=== PATIENT | female | born 1975 | race Caucasian/White ===

== ENCOUNTER → 2022-01-21 | Outpatient (CLI) | payer BC, SELFPAY ==
[2022-01-21 12:02] LABS: EXAGEN MAILED SPECIMEN
[2022-01-21 12:15] LABS: Partial Thromboplast Time 24.4 Seconds (24.1-36.2); Prothrombin Time (Protime)PT. 12.8 SECONDS (11.7-14.9)
[2022-01-21 15:08] LABS: Color, Urine Yellow (Yellow); Glucose, Dipstick Normal (Normal); Ketone-Dipstick 15 mg/dl (Negative); Leukocyte Esterase-Dipstick Negative /ul (Negative); Nitrite-Dipstick Negative (Negative); Occult Blood-Urine 150 /ul (Negative); Protein-Dipstick 15 mg/dl (Negative); Urine Bilirubin Dipstick Negative (Negative); Urine Clarity Clear (Clear); Urine Urobilinogen Normal (Normal)
[2022-01-21 15:23] LABS: Protein, Urine (Random) 12.9 mg/dL (<11.9); Protein:Creat Ratio 54 mg/g CRE (0-200)
[2022-01-27 15:07] LABS: Dilute Prothrombin Time (dPT) 36.4 sec (0.0-47.6); Dilute Russell Viper Venom 35.8 sec (0.0-47.0); Hexagonal Phase Phospholipid 6 sec (0-11); PTT-LA 28.9 sec (0.0-51.9); Thrombin Time 20.3 sec (0.0-23.0); dPT Confirm Ratio 1.06 Ratio (0.00-1.34)
[2022-01-27 16:08] LABS: Interpretation Comment: (.)
== END | disposition home or self-care (01) ==
LOC: MTLAB 10:59
PROVIDERS: PCP Family Medicine; Referring Provider Internal Medicine Rheumatology; Visit Provider Internal Medicine Rheumatology
DX: Z52.4 Kidney donor (principal); M06.4 Inflammatory polyarthropathy; R76.8 Other specified abnormal immunological findings in serum; E03.9 Hypothyroidism, unspecified; I35.1 Nonrheumatic aortic (valve) insufficiency; K11.20 Sialoadenitis, unspecified; Z79.899 Other long term (current) drug therapy
CPT/HCPCS: 36415; 81002; 82570; 84156; 85598; 85610; 85730

== ENCOUNTER → 2022-12-30 | Outpatient (CLI) | payer BC, SELFPAY ==
--- NOTE | 2022-12-30 15:05 | NEURO ---
NCS and/or EMG Patient Report Ordering Doctor: Raghav Ngo DATE OF SERVICE: 12/30/22 Gisela presents for electrodiagnostic testing of the right upper limb. She reports numbness and stiffness in the right hand. Electrodiagnostic findings right median motor nerve demonstrates normal distal latency and amplitude with reduced conduction velocity. Normal right ulnar motor response. Normal right ulnar and median F wave. Normal right median sensory latency at the wrist and palm. Normal ulnar and radial sensory responses. On needle EMG, all muscles tested in the right upper limb showed no evidence of denervation with normal motor unit action potentials. Electrodiagnostic impression: This is an abnormal study in the right upper limb 1. Electrodiagnostic findings suggestive of right-sided median mononeuropathy. This is consistent with a mild right carpal tunnel syndrome. 2. No electrodiagnostic evidence is noted for cervical radiculopathy. Multi Select Codes Neurology Neurology Interp Codes: 85729-95 Musc test done w/n test comp (interp) and 65614-36 Nrv cndj test 7-8 studies (interp)
== END | disposition home or self-care (01) ==
LOC: PSN 13:21
PROVIDERS: PCP Family Medicine; Referring Provider Orthopaedic Surgery Sports Medicine; Visit Provider Orthopaedic Surgery Sports Medicine
DX: G56.01 Carpal tunnel syndrome, right upper limb (principal)
CPT/HCPCS: 95886; 95910

== ENCOUNTER → 2024-12-27 | Outpatient (CLI) | payer BC, SELFPAY ==
--- NOTE | 2024-12-27 09:54 | MRI_ITS ---
PROCEDURE: UPPER EXT JOINT ONLY(ROUTINE) 12/27/2024 REASON FOR EXAM: PAIN TECHNIQUE: UPPER EXT JOINT ONLY(ROUTINE) Multiplanar and multisequence images were obtained without IV contrast administration. COMPARISON: COMPARISON: November 06, 2024 x-ray FINDINGS: Bone Marrow: There is no bony contusion or occult fracture. Rotator cuff: There is no muscular atrophy. There is mild distal supraspinatus tendinopathy without tear. The infraspinatus, subscapularis, and teres minor appear intact. AC joint: The AC joint is aligned. There is no evidence of AC joint separation. There is a type 2 acromion. Labrum: There is a tear of the labrum from the 10 o'clock 2 o'clock position including the biceps tendon anchor. There is a paralabral cyst in the 12 o'clock position measuring 0.5 by 0.25 cm. There is a paralabral cyst at the anterior labral margin measuring 1.0 by 0.6 cm. Biceps: The biceps tendon is present in the biceps tendon groove and appears intact. Effusion: There is no significant joint effusion. There is a trace amount of fluid in the subacromial subdeltoid bursa. MRI/Upper Ext Joint Only(Routine) IMPRESSION: There is mild distal supraspinatus tendinopathy without tear. There is a tear of the labrum from the 10 o'clock 2 o'clock position including the biceps tendon anchor. There is a paralabral cyst in the 12 o'clock position measuring 0.5 by 0.25 cm. There is a paralabral cyst at the anterior labral margin measuring 1.0 by 0.6 c m. There is a trace amount of fluid in the subacromial subdeltoid bursa. Reading Location: [facility]
== END | disposition home or self-care (01) ==
LOC: MRI 09:32
PROVIDERS: PCP Nurse Practitioner Family; Referring Provider Orthopaedic Surgery Sports Medicine; Visit Provider Orthopaedic Surgery Sports Medicine
DX: M25.512 Pain in left shoulder (principal)
CPT/HCPCS: 73221

== ENCOUNTER 2025-01-31 06:02 | Day surgery (SDC) | payer BC, SELFPAY ==
--- NOTE | 2025-01-17 17:15 | PAT.ANE_ITS ---
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 When Was Last Pacemaker Check QUESTION #4 FULL TEXT: You/Your Family Experience fever (hyperthermia) with Anesthesia Last Oral Intake Last Oral intake: Last Oral Intake NPO since Meds taken in AM with sips of water? 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 Female Yes 01/17/25 10:23 HX of Motion Sickness No 01/17/25 10:23 HX of N/V After Surgery No 01/17/25 10:23 Non-Smoker Yes 01/17/25 10:23 Duration of Surgery greater Yes 01/17/25 10:23 than 60 minutes Number of Risk Factors 3 01/17/25 10:23 PONV Score Moderate Risk 01/17/25 10:23 Height & Weight Height & Weight: Anesthesia: Height & Weight Height 5 ft 12/14/24 08:34 Respiratory Assessment Respiratory Assessment - distribution operations supervisor: Respiratory Tract Infection Hx - distribution operations supervisor Hx Respiratory Tract Infection No 01/17/25 10:23 STOP Sleep Apnea STOP Sleep Apnea - distribution operations supervisor: STOP Sleep Apnea - distribution operations supervisor Hx Hypertension No 01/17/25 10:23 Hx Sleep Apnea No 01/17/25 10:23 CPAP BIPAP Do you snore loudly (louder No 01/17/25 10:23 than talking or can be heard Do you often feel tired/ No 01/17/25 10:23 fatigued/ sleepy during daytime? Has anyone observed you stop No 01/17/25 10:23 breathing during sleep? STOP Results Negative 01/17/25 10:23 QUESTION #5 FULL TEXT : Do you snore loudly (louder than talking or can be heard through closed doors)? 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 Specify any problems Hx of Preganancy in last 3 No 01/17/25 10:23 Months Nurse Filling Out Transfusion VCHRISTIN 01/17/25 10:23 & Questions: Date: 01/17/25 01/17/25 10:23 Time: 10:24 01/17/25 10:23 Patient unable to answer at this time (ie. confused, unrespo /Reproduction History /Reproductive History - distribution operations supervisor: /Reproductive Hx- distribution operations supervisor Hx Now No 01/17/25 10:23 Gestational Age (in weeks): EDC: Hx Hx Para Hx Section SAB No 01/17/25 10:23 [facility] Medical History (Updated 01/17/25 @ 10:23 by Olivia Mi) Wears dentures Wears contact lenses Wears glasses History of steroid therapy Thyroid disease Rheumatoid arthritis Arthritis Back pain Gastric reflux Hoarseness Cardiology follow-up encounter Superior labrum [id number] (SLAP) tear of left shoulder Tendinitis of left rotator cuff Left shoulder pain Left wrist pain Left lateral epicondylitis Tendinitis of extensor tendon of left hand Right carpal tunnel syndrome Right hand pain Aortic valve insufficiency Home Medications ?Medication ?Instructions ?Recorded ?Last Taken ?Type levothyroxine 50 mcg capsule 50 mcg PO DAILY 02/07/21 Unknown History folic acid 1 mg tablet 1 mg PO BID 11/19/22 Unknown History methotrexate sodium 2.5 mg tablet 20 mg PO QWEEK 11/19 Unknown History famotidine 40 mg tablet 40 mg PO QHS 10/05/24 Unknow n History lansoprazole 30 mg capsule,delayed 30 mg PO DAILY 09/26 Unknown History release acetaminophen 325 mg tablet 325 mg PO ONCE PRN pain Unknown History (Tylenol) hydroxychloroquine 200 mg tablet 300 mg PO DAILY 01/17 Unknown History prednisone 10 mg tablet 10 mg PO DAILY PRN FLARE UPS 01/17/25 Unknown History tramadol 50 mg tablet 50 mg PO BID PRN PRN pain Unknown History Allergy/AdvReac Type Severity Reaction Status Date / Time Latex, Natural Rubber AdvReac Intermediate rash/itchy Verified 01/17/25 10:11 Family History Brother Heart disease Mother Cancer Arthritis Father Hypertension Surgical History (Updated 01/17/25 @ 10:23 by Olivia Mi) H/O arthroscopy of right knee History of cholecystectomy History of nephrectomy H/O tubal ligation Social History Smoking Status: Never smoker alcohol intake: never Audit: Pertinent Findings Pertinent Findings EKG Perinent findings: August 03, 2024. Normal sinus rhythm. Stress test pertinent findings: ? Date. Treadmill exercise stress test showed no inducible ischemia per cardiology consult. Echo (EF%) pertinent findings: July 2023. Normal EF. Mild to moderate aortic insufficiency. Consult pertinent findings: August 03, 2024. Dr. Dickson. 1. Preoperative clearance for EGD. Patient is able to do greater than 4 METS without symptoms. Risk of cardiovascular event is low in the setting of low risk procedure. No further workup at this time. 2. Aortic insufficiency?mild to moderate, asymptomatic. Recommendation Anesthesia Recommendation Anesthesia recommendation: OPTIMIZED for anesthesia
[2025-01-31] VITALS (11 sets, daily range): BP systolic 95–127; BP diastolic 67–74; PULSE 68–79; RESP 12–18; TEMP 36.3–36.6; O2SAT 80–99; BMI 25.8
--- OUTSIDE RECORDS SUMMARY | 2025-01-31 06:05 | XMS RPT_ITS | CCD ---
Author Organization [facility] ion [facility] Care Team Providers Care Blasting Contract Miner Name Role Phone GeorgesFlora Y Unavailable DeFinis, Harumi Y Unavailable Unavailable DeFinis, Harumi Y Unavailable Unavailable Flora Georges Y Unavailable Dr. Clement Michael Primary Care Provider Dr. Clement Michael Referring Provider MD Raghav Ngo Attending Provider Dr. Favian San Attending Provider MD Raghav Ngo Referring Provider MD Raghav Ngo Other Provider Dr. Edda Kilpatrick Attending Provider UNGERER, MIGUELINA STOCK TRACER Consulting Unavailable NU ALMANZAR MD Admitting Unavailable NU ALMANZAR MD Primary Care Unavailable NU ALMANZAR MD Attending Unavailable PROVIDER, UNKNOWN Consulting Unavailable UNGERER, MIGUELINA STOCK TRACER Consulting Unavailable UNGERER, MIGUELINA STOCK TRACER Primary Care Unavailable UNGERER, MIGUELINA STOCK TRACER Attending Unavailable UNGERER, MIGUELINA STOCK TRACER Admitting Unavailable PROVIDER, UNKNOWN Consulting Unavailable UNGERER, MIGUELINA STOCK TRACER Consulting Unavailable UNGERER, MIGUELINA STOCK TRACER Attending Unavailable UNGERER, MIGUELINA STOCK TRACER Primary Care Unavailable UNGERER, MIGUELINA STOCK TRACER Admitting Unavailable PROVIDER, UNKNOWN Consulting Unavailable GRACIE CLEVELAND MD Attending Unavailab GRACIE Pena MD Admitting Unavailab GRACIE Pena MD Primary Care Unavailab le UNGERER, MIGUELINA STOCK TRACER Consulting Unavailable PROVIDER, UNKNOWN Consulting Unavailable UNGERER, MIGUELINA STOCK TRACER Consulting Unavailable UNGERER, MIGUELINA STOCK TRACER Admitting Unavailable UNGERER, MIGUELINA STOCK TRACER Attending Unavailable UNGERER, MIGUELINA STOCK TRACER Primary Care Unavailable PROVIDER, UNKNOWN Consulting Unavailable UNGERER, MIGUELINA STOCK TRACER Consulting Unavailable NU ALMANZAR MD Admitting Unavailable NU ALMANZAR MD Primary Care Unavailable NU ALMANZAR MD Attending Unavailable PROVIDER, UNKNOWN Consulting Unavailable NU ALMANZAR MD Admitting Unavailable NU ALMANZAR MD Primary Care Unavailable CEMERER, MIGUELINA STOCK TRACER Consulting Unavailable NU ALMANZAR MD Attending Unavailable PROVIDER, UNKNOWN Consulting Unavailable NU ALMANZAR MD Admitting Unavailable CEMERER, MIGUELINA STOCK TRACER Consulting Unavailable NU ALMANZAR MD Primary Care Unavailable NU ALMANZAR MD Attending Unavailable PROVIDER, UNKNOWN Consulting Unavailable UNGERER, MIGUELINA STOCK TRACER Consulting Unavailable CEMERER, MIGUELINA STOCK TRACER Referring Unavailable MILLA VIDALES MD Attending Unavailable MILLA VIDALES MD Admitting Unavailable MILLA VIDALES MD Primary Care Unavailable PROVIDER, UNKNOWN Consulting Unavailable UNGERER, MIGUELINA STOCK TRACER Consulting Unavailable UNGERER, MIGUELINA STOCK TRACER Referring Unavailable RAYMOND RENDON Attending Unavailable RAYMOND RENDON Admitting Unavailable RAYMOND RENDON Primary Care Unavailable PROVIDER, UNKNOWN Consulting Unavailable DESMOND ZAMUDIO CNP Referring Unavailable DESMOND ZAMUDIO CNP Consulting Unavailable DANI SAL Primary Care Unavailable DANI SAL Admitting Unavailable DANI SAL Attending Unavailable PROVIDER, UNKNOWN Consulting Unavailable PROVIDER, UNKNOWN Consulting Unavailable YVON PAN Attending Unavailable YVON PAN Admitting Unavailable YVON PAN Primary Care Unavailable UNGERER, MIGUELINA STOCK TRACER Consulting Unavailable PROVIDER, UNKNOWN Consulting Unavailable GRACIE CLEVELAND MD Attending Unavailab GRACIE Pena MD Admitting Unavailab GRACIE Pena MD Primary Care Unavailab le UNGERER, MIGUELINA STOCK TRACER Consulting Unavailable PROVIDER, UNKNOWN Consulting Unavailable NU ALMANZAR MD Admitting Unavailable ALONDRAR, MIGUELINA STOCK TRACER Consulting Unavailable NU ALMANZAR MD Attending Unavailable NU ALMANZAR MD Primary Care Unavailable PROVIDER, UNKNOWN Consulting Unavailable UNGERER, MIGUELINA STOCK TRACER Consulting Unavailable UNGERER, MIGUELINA STOCK TRACER Admitting Unavailable UNGERER, MIGUELINA STOCK TRACER Attending Unavailable UNGERERMIGUELINA STOCK TRACER Primary Care Unavailable PROVIDER, UNKNOWN Consulting Unavailable Alec TREJO, Dr. Vaughan Primary Care Provider Alec TREJO, Dr. Vaughan Referring Provider Raghav Ngo MD Attending Provider [phone] Mena TREJO, Dr. Ballesteros Attending Provider [phone] Raghav Ngo MD Referring Provider Robb STOCK TRACER-C, Desmond Primary Care Provider Robb STOCK TRACER-C, Desmond Referring Provider Raghav Ngo Attending Unavailable Vaccariello, Clement Referring Unavailable Vaccariello, Clement Primary Care Unavailable Mollison, Raghav Attending Unavailable Mollison, Raghav Referring Unavailable Robb, Desmond Primary Care Unavailable Mollison, Raghav Attending Unavailable Robb, Desmond Primary Care Unavailable Mena, Favian Attending Unavailable Vaccariello, Clement Primary Care Unavailable Jeni, Raghav Attending Unavailable Vaccariello, Clement Referring Unavailable Vaccariello, [facility] Primary Care Unavailable Mollison, Raghav Attending Unavailable Robb, Desmond Referring Unavailable Robb, Desmond Primary Care Unavailable Jeni, Raghav Attending Unavailable Vaccariello, Clement Referring Unavailable Vaccariello, [facility] Primary Care Unavailable Mollison, Raghav Attending Unavailable Vaccariello, Clement Referring Unavailable Vaccariello, [facility] Primary Care Unavailable Mena, Favian Attending Unavailable Vaccariello, [facility] Care Unavailable Allergies Allergy Classification Reported Allergen(s) Allergy Type Date of Onset Reaction(s) Facility (4 sources) natural latex rubber; Translations: [LATEX] allergy to substance 1 Rash on hands [facility] Work Phone: (4 sources) natural latex rubber Propensity to adverse reactions 3 rash/itchy [facility] (1 source) natural latex rubber Drug allergy (disorder) 5 [facility] Repository Medications Current Medications Medication Drug Class(es) Dates Sig (Normalized) Sig (Original) acetaminophen 325 mg oral tablet (3 sources) Start: 11-06-2024 take 1 tablet by mouth once as needed Acetaminophen (Tylenol) 325 mg tablet Active 325 mg PO ONCE as needed November 06, 2024 12:00am famotidine 40 mg oral tablet (3 sources) Histamine-2 Receptor Antagonist Start: 10-05-2024 take 1 tablet by mouth at bedtime Famotidine 40 mg tablet Active 40 mg PO AT BEDTIME October 05, 2024 12:00am folic acid 1 mg oral tablet (4 sources) Start: 11-19-2022 take 1 tablet by mouth every week Folic Acid 1 mg tablet Active 1 mg PO EVERY WEEK November 19, 2022 12:00am lansoprazole 30 mg delayed release oral capsule (3 sources) Proton Pump Inhibitor Start: 10-05-2024 take 1 capsule by mouth twice daily Lansoprazole 30 mg capsule,delayed release(DR/EC) Active 30 mg PO TWICE A DAY October 05, 2024 12:00am methotrexate 2.5 mg oral tablet (4 sources) Folate Analog Metabolic Inhibitor Start: 11-19-2022 take 1 tablet by mouth every week Methotrexate Sodium 2.5 mg tablet Active 2.5 mg PO EVERY WEEK November 19, 2022 12:00am levothyroxine sodium 0.05 mg oral capsule (6 sources) l-Thyroxine Start: 02-07-2021 take 1 capsule by mouth once daily Levothyroxine 50 mcg capsule Active 50 ug PO DAILY February 07, 2021 12:00am Start: 02-02-2017 take 1 tablet by elliott th once daily LEVOTHYROXINE SODIUM 50 MCG TABS One tablet by mouth daily LEVOTHYROXINE SODIUM [id number] Clement Estevez NP Completed/Discontinued Medications Medication Drug Class(es) Dates Sig (Normalized) Sig (Original) hydroxychloroquine sulfate 200 mg oral tablet (4 sources) Antimalarial, Antirheumatic Agent Start: 3 End: 5 take 1 tablet by mouth every week Hydroxychloroquine 200 mg tablet Discontinued 200 mg PO EVERY WEEK November 19, 2022 12:00am October 05, 2024 9:18am naproxen sodium 220 mg oral tablet (8 sources) Nonsteroidal Anti-inflammatory Drug Start: 3 End: 6 ALEVE 220 MG TABS PRN NAPROXEN SODIUM [id number] Favian San MD omeprazole 20 mg delayed release oral capsule (4 sources) Proton Pump Inhibitor Start: 3 End: 5 take 1 capsule by mouth once daily Omeprazole 20 mg capsule,delayed release(DR/EC) Discontinued 20 mg PO DAILY November 19, 2022 12:00am October 05, 2024 9:16am traMADol hydrochloride 50 mg oral tablet (4 sources) Opioid Agonist Start: 1 End: 1 take 1 tablet by mouth every six hours as needed for pain Tramadol 50 mg tablet Discontinued 50 mg PO EVERY 6 HOURS as needed for pain 60 15 0 February 07, 2021 12:00am February 21, 2021 12:00am February 22, 2021 12:01am Problems Active Problems Problem Classification Problem Date Documented Date Episodic/Chronic Chronic kidney disease (3 sources) Chronic kidney disease; Translations: [Chronic kidney disease, stage 3a] Onset: 08-23-2024 Heart valve disorders (12 sources) Nonrheumatic aortic (valve) insufficiency; Translations: [Aortic valve regurgitation] Onset: 05-25-2011 06-03-2016 Chronic Other connective tissue disease (4 sources) Hand pain; Translations: [Pain in right hand] 11-19-2022 Episodic Other connective tissue disease (1 source) Pain in right hand; Translations: [Pain in limb] 11-19-2022 Episodic Other connective tissue disease (3 sources) Lateral epicondylitis of left humerus; Translations: [Lateral epicondylitis, left elbow] 12-20-2023 Episodic Other connective tissue disease (3 sources) Tendinitis of extensor tendon of left hand; Translations: [Other enthesopathies, not elsewhere classified] 10-19-2023 Episodic Other connective tissue disease (4 sources) Tendinitis of left rotator cuff; Translations: [Other shoulder lesions, left shoulder] 01-02-2025 Episodic Other connective tissue disease (1 source) Other shoulder lesions, left shoulder; Translations: [Other shoulder lesions, left shoulder] Onset: 01-02-2025 Episodic Other nervous system disorders (1 source) Carpal tunnel syndrome; Translations: [Carpal tunnel syndrome, right upper limb] 11-19-2022 Chronic Other nervous system disorders (1 source) Carpal tunnel syndrome, right upper limb; Translations: [Carpal tunnel syndrome] 11-19-2022 Chronic Other nervous system disorders (3 sources) Carpal tunnel syndrome of right wrist; Translations: [Carpal tunnel syndrome, right upper limb] 11-19-2022 Chronic Other non-traumatic joint disorders (12 sources) Pain in left shoulder; Translations: [Left shoulder pain] Onset: 01-02-2025 11-06-2024 Episodic Other non-traumatic joint disorders (6 sources) Pain in wrist; Translations: [Pain in left wrist] 10-05-2024 Episodic Other screening for suspected conditions (not mental disorders or infectious disease) (3 sources) Abnormal results of kidney function studies; Translations: [Abnormal results of kidney function studies] Onset: 08-03-2024 Episodic Pulmonary heart disease (4 sources) Pulmonary hypertension; Translations: [Other secondary pulmonary hypertension] Onset: 03-15-2015 03-15-2015 Chronic Residual codes; unclassified (4 sources) History of arthroscopy of knee joint; Translations: [Other specified postprocedural states] 03-01-2018 Episodic Residual codes; unclassified (4 sources) History of nephrectomy; Translations: [Acquired absence of kidney] 03-01-2018 Episodic Rheumatoid arthritis and related disease (4 sources) Inflammatory polyarthropathy; Translations: [Inflammatory polyarthropathy] Onset: 02-14-2024 Chronic Spondylosis; intervertebral disc disorders; other back problems (4 sources) Sacroiliac disorder; Translations: [Sacrococcygeal disorders, not elsewhere classified] 02-07-2021 Episodic Sprains and strains (5 sources) Anterior to posterior tear of superior glenoid labrum of left shoulder; Translations: [Superior glenoid labrum lesion of left shoulder, initial encounter] Onset: 01-02-2025 01-02-2025 Episodic Superficial injury; contusion (6 sources) Contusion of left shoulder, initial encounter; Translations: [Contusion of left forearm, initial encounter] Onset: 09-28-2024 Episodic Thyroid disorders (3 sources) Hypothyroidism, unspecified; Translations: [Hypothyroidism, unspecified] Onset: 04-20-2024 Chronic Past or Other Problems Problem Classification Problem Date Documented Date Episodic/Chronic Cardiac dysrhythmias (4 sources) Palpitations; Translations: [Palpitations] Onset: 05-25-2011 05-25-2011 Episodic Immunizations and screening for infectious disease (1 source) Other specified abnormal immunological findings in serum; Translations: [Other specified abnormal immunological findings in serum] Onset: 07-07-2024 Episodic Other aftercare (4 sources) Other manager terminal (current) drug therapy; Translations: [Other shelter (current) drug therapy] Onset: 02-14-2024 Episodic Other circulatory disease (10 sources) Abnormal result of cardiovascular function study, unspecified; Translations: [Carotid bruit] Onset: 05-25-2011 Resolved: 03-15-2015 03-15-2015 Episodic Other circulatory disease (2 sources) Carotid bruit; Translations: [Other specified symptoms and signs involving the circulatory and respiratory systems] Onset: 05-25-2011 05-25-2011 Episodic Other lower respiratory disease (4 sources) Dyspnea; Translations: [Dyspnea, unspecified] Onset: 05-25-2011 05-25-2011 Episodic Other non-traumatic joint disorders (1 source) Pain in left wrist; Translations: [Pain in left wrist] Onset: 10-05-2024 Episodic Residual codes; unclassified (3 sources) Other specified postprocedural states; Translations: [Other specified postprocedural states] Onset: 05-19-2024 Episodic Results Test Name Value Interpretation Reference Range Facility MR/PAT.ANEon 01-17-2025 MR/PAT.[facility] Medical Records Department [address] [place] [address] PAT - Anesthesia 01/17/25 1715 MR#: [id number] Acct: [id number] Name: ANANTH [place] Rep #: [id number] : 1975 49 From: Rad Raygoza MD PCP: RICCO Epperson Status:PRE [facility] Y Race: C Location: [facility] Pre-Assessment Diagnosis/Proposed Procedure Planned Operative Procedure(s): (L) Left shoulder Arthroscopy, subacromial decompression, biceps tenodesis Anesthesia History Anesthesia History - cold roll inspector: Anesthesia History - cold roll inspector Hx Hospitalization No 01/17/25 10:23 Any Problems With Anesthesia No 01/17/25 10:23 Cholinesterase deficiency No 01/17/25 10:23 You/Your Family Experience No 01/17/25 10:23 fever (hyperthermia) with Relationship Recent Exposure to Contagious Disease Does patient have nerve No 01/17/25 10:23 stimulator Patient instructed to have device shut off --Does patient have Pacemaker or ICD? When Was Last Pacemaker Check QUESTION #4 FULL TEXT: You/Your Family Experience fever (hyperthermia) with Anesthesia Last Oral Intake Last Oral intake: Last Oral Intake NPO since Meds taken in AM with sips of water? Meds patient instructed to take am of surgery PONV PONV - cold roll inspector: PONV - cold roll inspector Female Yes 01/17/25 10:23 HX of Motion Sickness No 01/17/25 10:23 HX of N/V After Surgery No 01/17/25 10:23 Non-Smoker Yes 01/17/25 10:23 Duration of Surgery greater Yes 01/17/25 10:23 than 60 minutes Number of Risk Factors 3 01/17/25 10:23 PONV Score Moderate Risk 01/17/25 10:23 Height Weight Height Weight: Anesthesia: Height Weight Height 5 ft 12/14/24 08:34 Respiratory Assessment Respiratory Assessment - cold roll inspector: Respiratory Tract Infection Hx - cold roll inspector Hx Respiratory Tract Infection No 01/17/25 10:23 STOP Sleep Apnea STOP Sleep Apnea - cold roll inspector: STOP Sleep Apnea - cold roll inspector Hx Hypertension No 01/17/25 10:23 Hx Sleep Apnea No 01/17/25 10:23 CPAP BIPAP Do you snore loudly (louder No 01/17/25 10:23 than talking or can be heard Do you often feel tired/ No 01/17/25 10:23 fatigued/ sleepy during daytime? Has anyone observed you stop No 01/17/25 10:23 breathing during sleep? STOP Results Negative 01/17/25 10:23 QUESTION #5 FULL TEXT : Do you snore loudly (louder than talking or can be heard through closed doors)? Tobacco Use History Tobacco Use History - cold roll inspector: Tobacco Use History - cold roll inspector Tobacco Use Smoking Status Never smoker 01/17/25 10:23 Hx Tobacco Use No 01/17/25 10:23 Years Smoking Packs Smoked per Day Smoking Cessation Date was within the last 15 years Hx Smoking Cessation Date Hx Smoking Cessation Counseling Hematologic Medial History Hematologic Hx - cold roll inspector: Hematologic Medical Hx - hematology technician Hx of Blood Transfusion No 01/17/25 10:23 Hx of Transfusion in last 3 No 01/17/25 10:23 Months Date of Last Transfusion (if within last 3 months) Ever experience any problems No 01/17/25 10:23 with transfusion(s)? Specify any problems Hx of Preganancy in last 3 No 01/17/25 10:23 Months Nurse Filling Out Transfusion VCHRISTIN 01/17/25 10:23 Questions: Date: 01/17/25 01/17/25 10:23 Time: 10:24 01/17/25 10:23 Patient unable to answer at this time (ie. confused, unrespo /Reproducti on History /Reproducti ve History - cold roll inspector: /Reproducti ve Hx- cold roll inspector Hx Now No 01/17/25 10:23 Gestational Age (in weeks): EDC: Hx Hx Para Hx Section SAB No 01/17/25 10:23 [facility] Medical History (Updated 01/17/25 @ 10:23 by Olivia Mi) Wears dentures Wears contact lenses Wears glasses History of steroid therapy Thyroid disease Rheumatoid arthritis Arthritis Back pain Gastric reflux Hoarseness Cardiology follow-up encounter Superior labrum mecemhdp-xi-mxcfkwka r (SLAP) tear of left shoulder Tendinitis of left rotator cuff Left shoulder pain Left wrist pain Left lateral epicondylitis Tendinitis of extensor tendon of left hand Right carpal tunnel syndrome Right hand pain Aortic valve insufficiency Home Medications ???Medication ???Instructions ???Recorded ???Last Taken ???Type levothyroxine 50 mcg capsule 50 mcg PO DAILY 02/07/21 Unknown H istory folic acid 1 mg tablet 1 mg PO BID 11/19/22 Unknown Histo ry methotrexate sodium 2.5 mg tablet 20 mg PO QWEEK 11/19/22 Unknown H istory famotidine 40 mg tablet 40 mg PO QHS 10/05/24 Unknown Hist ory lansoprazol (more content not included)... Normal [facility] Orthopedic Visit Reporton Orthopedic Visit Report [facility] [address] [place] [address] [address] [place] [address] OFFICE VISIT Date of Service: 01/02/25 MR#: [id number] Acct: [id number] Name: ANANTH [place] Rep #: [id number] : 1975 Provider: Dr. Raghav puente MD Age/Sex: 49/F Location: [facility] Status: Signed Intake Vital Signs 12/14/24 08:34 Height 5 ft Weight: 130 lb BMI 25.4 Intake Visit Reasons: LEFT SHOULDER Chief Complaint: MRI review Allergies Latex, Natural Rubber Adverse Reaction (Intermediate, Verified 01/02/25 08:14) rash/itchy Medications ???Medication ???Instructions ???Recorded ???Confirmed ???Type levothyroxine 50 mcg capsule 50 mcg PO DAILY 02/07/21 01/02/25 History folic acid 1 mg tablet 1 mg PO QWEEK 11/19/22 01/02/25 Hi story methotrexate sodium 2.5 mg tablet 2.5 mg PO QWEEK 11/19/22 01/02/25 History famotidine 40 mg tablet 40 mg PO QHS 10/05/24 01/02/25 His tory lansoprazole 30 mg capsule,delayed 30 mg PO BID 10/05/24 01/02/25 H istory release acetaminophen 325 mg tablet 325 mg PO ONCE PRN 11/06/24 History (Tylenol) PFSH Medical History Superior labrum ufglsnkw-uo-bapteudb r (SLAP) tear of left shoulder Tendinitis of left rotator cuff Left shoulder pain Left wrist pain Left lateral epicondylitis Tendinitis of extensor tendon of left hand Right carpal tunnel syndrome Right hand pain Aortic valve insufficiency Surgical History H/O arthroscopy of right knee History of cholecystectomy History of nephrectomy H/O tubal ligation Family History Brother Heart disease Mother Cancer Arthritis Father Hypertension Social History Smoking Status: Never smoker alcohol intake: never HPI LEFT SHOULDER Details: This documentation accurately reflects the service provided and the decisions made by me, Dr. Raghav Ngo MD 01/02/25 0802. Part of today???s visit was documented by [ ], acting as scribe. ANANTH [place] is a 49 year old F here today for follow-up left shoulder MRI. Did have temporary relief with the injection. Not interested in PT. Works many hours in [place] doing lifting. Supplemental Info [facility] Imaging Services [address] [place] [address] Upper Ext Joint Only(Routine) MR#: [id number] Acct: [id number] Name: ANANTH [place] Rep #: [id number] : 1975 F 49 From: Julian Cortes MD PCP: Desmond Zamudio, STOCK TRACER-C Status: REG CLI Study: Upper Ext Joint Only(Routine) Date of Exam: 12/27/24 Exam# [id number] Ordering Dr: Raghav Ngo MD PROCEDURE: UPPER EXT JOINT ONLY(ROUTINE) 12/27/2024 REASON FOR EXAM: PAIN TECHNIQUE: UPPER EXT JOINT ONLY(ROUTINE) Multiplanar and multisequence images were obtained without IV contrast administration. COMPARISON: COMPARISON: November 06, 2024 x-ray FINDINGS: Bone Marrow: There is no bony contusion or occult fracture. Rotator cuff: There is no muscular atrophy. There is mild distal supraspinatus tendinopathy without tear. The infraspinatus, subscapularis, and teres minor appear intact. AC joint: The AC joint is aligned. There is no evidence of AC joint separation. There is a type 2 acromion. Labrum: There is a tear of the labrum from the 10 o'clock 2 o'clock position including the biceps tendon anchor. There is a paralabral cyst in the 12 o'clock position measuring 0.5 by 0.25 cm. There is a paralabral cyst at the anterior labral margin measuring 1.0 by 0.6 cm. Biceps: The biceps tendon is present in the biceps tendon groove and appears intact. Effusion: There is no significant joint effusion. There is a trace amount of fluid in the subacromial subdeltoid bursa. MRI/Upper Ext Joint Only(Routine) IMPRESSION: There is mild distal supraspinatus tendinopathy without tear. There is a tear of the labrum from the 10 o'clock 2 o'clock position including the biceps tendon anchor. There is a paralabral cyst in the 12 o'clock position measuring 0.5 by 0.25 cm. There is a paralabral cyst at the anterior labral margin measuring 1.0 by 0.6 cm. There is a trace amount of fluid in the subacromial subdeltoid bursa. Reading Location: [facility] independently reviewed the imaging. Concur with radiologist report. Coding Level of Care Code Off vis,est,level 4 Diagnoses Left shoulder pain M25.512 Tendinitis of left rot (more content not included)... Normal [facility] Magnetic resonance imaging r eportOrdered By: Julian Cortes on 12-27-2024 Study report [facility] Imaging Services [address] [place] [address] Upper Ext Joint Only(Routine) MR#: [id number] Acct: [id number] Name: ANANTH [place] Rep #: [id number] : 1975 F 49 From: Angy Cortes MD PCP: RICCO Epperson Status: REG C Study:Upper Ext Joint Only(Routine) Date of Exam: 12/27/24 Exam# [id number] Ordering Dr: Raghav Ngo MD PROCEDURE: UPPER EXT JOINT ONLY(ROUTINE) 12/27/2024 REASON FOR EXAM: PAIN TECHNIQUE: UPPER EXT JOINT ONLY(ROUTINE) Multiplanar and multisequence images were obtained without IV contrast administration. COMPARISON: COMPARISON: November 06, 2024 x-ray FINDINGS: Bone Marrow: There is no bony contusion or occult fracture. Rotator cuff: There is no muscular atrophy. There is mild distal supraspinatus tendinopathy without tear. The infraspinatus, subscapularis, and teres minor appear intact. AC joint: The AC joint is aligned. There is no evidence of AC joint separation. There is a type 2 acromion. Labrum: There is a tear of the labrum from the 10 o'clock 2 o'clock position including the biceps tendon anchor. There is a paralabral cyst in the 12 o'clock position measuring 0.5 by 0.25 cm. There is aparalabral cyst at the anterior labral margin measuring 1.0 by 0.6 cm. Biceps: The biceps tendon is present in the biceps tendon groove and appears intact. Effusion: There is no significant joint effusion. There is a trace amount of fluid in the subacromial subdeltoid bursa. MRI/Upper Ext Joint Only(Routine) IMPRESSION: There is mild distal supraspinatus tendinopathy without tear. There is a tear of the labrum from the 10 o'clock 2 o'clock position including the biceps tendon anchor. There is a paralabral cyst in the 12 o'clock position measuring 0.5 by 0.25 cm. There is a paralabral cyst at the anterior labral margin measuring 1.0 by 0.6 cm. There is a trace amount of fluid in the subacromial subdeltoid bursa. Reading Location: [facility] CC: SHAMIKA-C Desmond Zamudio; Dr. Raghav Ngo MD ~ Visualizer: Signed [facility] Upper Ext Joint Only(Routine )on 12-27-2024 Upper Ext Joint Only(Routine) [facility] Imaging Services [address] [place] [id number] Upper Ext Joint Only(Routine) MR#: [id number] Acct: [id number] Name: ANANTH DAVENPORT Rep #: [id number] : 1975 F 49 From: Julian Cortes MD PCP: RICCO Epperson Status: REG CLI Study: Upper Ext Joint Only(Routine) Date of Exam: 0 12/27/24 Exam# [id number] Ordering Dr: Raghav Ngo MD PROCEDURE: UPPER EXT JOINT ONLY(ROUTINE) 12/27/2024 REASON FOR EXAM: PAIN TECHNIQUE: UPPER EXT JOINT ONLY(ROUTINE) Multiplanar and multisequence images were obtained without IV contrast administration. COMPARISON: COMPARISON: November 06, 2024 x-ray FINDINGS: Bone Marrow: There is no bony contusion or occult fracture. Rotator cuff: There is no muscular atrophy. There is mild distal supraspinatus tendinopathy without tear. The infraspinatus, subscapularis, and teres minor appear intact. AC joint: The AC joint is aligned. There is no evidence of AC joint separation. There is a type 2 acromion. Labrum: There is a tear of the labrum from the 10 o'clock 2 o'clock position including the biceps tendon anchor. There is a paralabral cyst in the 12 o'clock position measuring 0.5 by 0.25 cm. There is a paralabral cyst at the anterior labral margin measuring 1.0 by 0.6 cm. Biceps: The biceps tendon is present in the biceps tendon groove and appears intact. Effusion: There is no significant joint effusion. There is a trace amount of fluid in the subacromial subdeltoid bursa. MRI/Upper Ext Joint Only(Routine) IMPRESSION: There is mild distal supraspinatus tendinopathy without tear. There is a tear of the labrum from the 10 o'clock 2 o'clock position including the biceps tendon anchor. There is a paralabral cyst in the 12 o'clock position measuring 0.5 by 0.25 cm. There is a paralabral cyst at the anterior labral margin measuring 1.0 by 0.6 cm. There is a trace amount of fluid in the subacromial subdeltoid bursa. Reading Location: [facility] CC: STOCK TRACER-C Desmond Zamudio; Dr. Raghav Ngo MD Visualizer: Signed Normal [facility] Orthopedic Visit Reporton Orthopedic Visit Report [facility] [address] [place] [address] OFFICE VISIT Date of Service: 12/14/24 MR#: [id number] Acct: [id number] Name: ANANTH DAVENPORT Rep #: [id number] : 1975 Provider: Dr. Raghav puente MD Age/Sex: 49/F Location: [facility] Status: Signed Intake Vital Signs 12/20/23 08:32 12/14/24 08:34 Height 5 ft 5 ft Weight: 130 lb BMI 25.4 Intake Visit Reasons: LEFT SHOULDER Chief Complaint: Left shoulder Accompanied by: Self Is patient in pain?: Yes Pain scale (1-10): 7 Allergies Latex, Natural Rubber Adverse Reaction (Intermediate, Verified 12/14/24 08:37) rash/itchy Medications ???Medication ???Instructions ???Recorded ???Confirmed ???Type levothyroxine 50 mcg capsule 50 mcg PO DAILY 02/07/21 12/14/24 History folic acid 1 mg tablet 1 mg PO QWEEK 11/19/22 12/14/24 Hi story methotrexate sodium 2.5 mg tablet 2.5 mg PO QWEEK 11/19/22 12/14/24 History famotidine 40 mg tablet 40 mg PO QHS 10/05/24 12/14/24 His tory lansoprazole 30 mg capsule,delayed 30 mg PO BID 10/05/24 12/14/24 H istory release acetaminophen 325 mg tablet 325 mg PO ONCE PRN 11/06/24 History (Tylenol) Have you fallen in the past year?: Yes PFSH Medical History Left shoulder pain Left wrist pain Left lateral epicondylitis Tendinitis of extensor tendon of left hand Right carpal tunnel syndrome Right hand pain Aortic valve insufficiency Surgical History H/O arthroscopy of right knee History of cholecystectomy History of nephrectomy H/O tubal ligation Family History Brother Heart disease Mother Cancer Arthritis Father Hypertension Social History Smoking Status: Never smoker alcohol intake: never HPI LEFT SHOULDER Details: This documentation accurately reflects the service provided and the decisions made by me, Dr. Raghav Ngo MD 12/14/24 0831. Part of today???s visit was documented by [ ], acting as scribe. ANANTH DAVENPORT is a 49 year old F here today for follow-up for left shoulder pain. The patient had a cortisone injection about a month ago with only temporary relief. The pain is still mostly on the lateral aspect of the shoulder and worse with lifting. The patient still has to do some physically demanding tasks at work. Patient took some tramadol further back the other day that only helped minimally for the shoulder. Coding Level of Care Code Off vis,est,level 3 Diagnoses Left shoulder pain M25.512 Assessment and Plan Assessment and Plan (1) Left shoulder pain: Status: Acute Plan: ANANTH DAVENPORT is a 49 year old F here today for follow-up for left shoulder pain. The patient had a cortisone injection about a month ago with only temporary relief. The patient has now failed extensive conservative management could have a rotator cuff tear tear in the biceps impingement syndrome tendinosis bursitis or other problems therefore I will go ahead and order an MRI of the left shoulder to assess further and follow the patient up after that they understood no further questions or concerns. Clinical Quality Measures Falls Risk Screening/Assistive Devices Have you fallen in the past year?: Yes Ortho Exam General General: Yes no acute distress Neurologic: Yes alert and Yes oriented x3 Psychologic: Yes reasonable and appropriate Left Shoulder Skin/Wound: Yes CDI, No ecchymosis, No erythema and No swelling Testing: Yes Hawkin's, Yes Neer's, Yes Speed's, Yes TTP Biceps, No TTP AC Joint, Yes AROM-Forward Elevation 0-180, Yes AROM-External Rotation at side 0-60, Yes empty can, No [place], No scapular winging and Yes belly press normal 12/14/24 0906 Date [facility]: Date (if applicable) CC: Normal [facility] Orthopedic Visit Reporton Orthopedic Visit Report [facility] [address] [place] [address] OFFICE VISIT Date of Service: 11/06/24 MR#: [id number] Acct: [id number] Name: ANANTH DAVENPORT Rep #: [id number] : 1975 Provider: Dr. Raghav puente MD Age/Sex: 49/F Location: [facility] Status: Signed with Addenda ADDENDUM by Viry Ortiz on 11/06/24 at 0931 Office Procedure Documentation entered by Viry Ortiz 11/06/24 09:31: Ortho Injections Injections Yes Subacromial Injection Left Is this a patient provided medication?: No Details: Obtained consent for injection. Under sterile conditions, injected the patients left subacromial shoulder with 2.0mL Kenalog and 4.0mL Bupivacaine. The patient tolerated the injection well without any noted complication. Patient should call our office if redness develops, pain worsens or if they have any concerns. Office Meds Kenalog 40 mg/mL suspension for injection Performing Provider: Raghav Ngo MD Performing Location: [facility] Administered by: Raghav Ngo MD on 11/06/24 09:29 Dose Route Admin Location Dispensed Lot Number Expiration Date ND Man ufacturer 80 mg intra-articular Left Subacromial Shoulder 2 mL [id number] 01/26/27 000 [id number] [facility] Date cc: * Signed Intake Vital Signs 12/20/23 08:32 Height 5 ft Intake Visit Reasons: LEFT SHOULDER Is patient in pain?: Yes Pain scale (1-10): 5 Allergies Latex, Natural Rubber Adverse Reaction (Intermediate, Verified 11/06/24 08:45) rash/itchy Medications ???Medication ???Instructions ???Recorded ???Confirmed ???Type levothyroxine 50 mcg capsule 50 mcg PO DAILY 02/07/21 11/06/24 History folic acid 1 mg tablet 1 mg PO QWEEK 11/19/22 11/06/24 Hi story methotrexate sodium 2.5 mg tablet 2.5 mg PO QWEEK 11/19/22 11/06/24 History famotidine 40 mg tablet 40 mg PO QHS 10/05/24 11/06/24 His tory lansoprazole 30 mg capsule,delayed 30 mg PO BID 10/05/24 11/06/24 H istory release acetaminophen 325 mg tablet 325 mg PO ONCE PRN 11/06/24 History (Tylenol) Have you fallen in the past year?: Yes [facility] Medical History (Updated 11/06/24 @ 08:35 by Raghav Ngo MD) Left shoulder pain Left wrist pain Left lateral epicondylitis Tendinitis of extensor tendon of left hand Right carpal tunnel syndrome Right hand pain Aortic valve insufficiency Surgical History H/O arthroscopy of right knee History of cholecystectomy History of nephrectomy H/O tubal ligation Family History Brother Heart disease Mother Cancer Arthritis Father Hypertension Social History Smoking Status: Never smoker alcohol intake: never HPI LEFT SHOULDER Details: This documentation accurately reflects the service provided and the decisions made by me, Dr. Raghav Ngo MD 11/06/24 0806. Part of today???s visit was documented by [ ], acting as scribe. ANANTH DAVENPORT is a 49 year old F here today for left shoulder pain. 1 month history. Worse after a fall. [id number]. Worse at night worse with lifting especially in abduction. Patient feels weak. There is moderate amount of pain mostly posteriorly and laterally. Has not tried any treatment beyond Tylenol so far. The pain is always there. Supplemental Info Left shoulder 4 views x-rays demonstrate nil acute. Normal for age. Coding Level of Care Code Attention Po Diagnoses Left shoulder pain M25.512 Comment [id number] and CPT inject major joint Assessment and Plan Assessment and Plan (1) Left shoulder pain: Status: Acute Plan: 49-year-old female with left shoulder pain. Wide differential that this is likely impingement syndrome could be rotator cuff tear impingement bursitis tendinosis tendinitis irritation of the biceps or other problems. Patient declined physical therapy wants to try cortisone injection they will follow-up if this is no better or worse the next step is an MRI. Pros and cons risks and benefits of left shoulder subacromial steroid injection were discussed. Patient wished to proceed. Risks include but not limited to infection, pain, stiffness, damage to other structures, neurovascular injury, wear further tear of the tendon and other structures such as the skin, bleeding, allergic reaction, acute flare reaction and other risks. Obtained informed consent for injection. Posterior lateral aspect of the shoulder was prepped with chlorhexidine solution allowed to thoroughly dry over 3 minutes. Used Gebauer spray per bottle instructions. Using sterile technique, injected the (more content not included)... Normal [facility] Shoulder min 2 Viewson 11-06 Shoulder min 2 Views [facility] Imaging Services [address] [place], [place] [id number] Shoulder min 2 Views MR#: [id number] Acct: [id number] Name: ANANTH DAVENPORT Rep #: [id number] : 1975 F 49 From: Bhavik [place] PCP: Dr. Clement Michael MD Status: DEP AMB Study: Shoulder min 2 Views Date of Exam: 11/06/24 Exam# [id number] Ordering Dr: Raghav Ngo MD PROCEDURE: SHOULDER MIN 2 VIEWS 11/06/2024 REASON FOR EXAM: PAIN, PT FELL 1 MONTH AGO TECHNIQUE: Four view left shoulder series. COMPARISON: Left shoulder study of 09/28/2024 RAD/Shoulder min 2 Views IMPRESSION: No significant arthritic process or joint narrowing is noted. Satisfactory osseous alignment is seen. No fracture site is seen. Reading Location: [place] [address] CC: Dr. Clement Michael MD; Dr. Raghav Ngo MD Visualizer: Signed Normal [facility] CBC + DIFFon 10-23-2024 Baso # 0.02 x10EE3/UL Normal 0.00 - 0.10 [facility] Comment on above: Performed By: #### 2 30342 ####[facility],[address] [place] [address] Basophils/100 WBC (Bld) 0.4 % Normal 0.0 - 2.0 [facility] Comment on above: Performed By: #### 2 55698 ####[facility],[address] [place] [address] CBC + DIFF Normal [facility] Comment on above: Result Comment: CBC- COMPLETE BLOOD COUNT Performed By: #### 2 08314 ####[facility],[address] [place] [address] EO # 0.17 x10EE3/UL Normal 0.00 - 0.50 [facility] Comment on above: Performed By: #### 2 09807 ####[facility],[address] [place], [place] [id number] Eosinophils/100 WBC (Bld) 2.7 % Normal 0.0 - 7.0 [facility] Comment on above: Performed By: #### 2 17498 ####[facility],[address] [place] [address] Erythrocyte distribution width (RBC) [Ratio] 15.7 % High 12.0 - 15.6 [facility] Comment on above: Performed By: #### 2 20793 ####[facility],[address] [place] [address] Hematocrit (Bld) [Volume fraction] 34.0 % Normal 34.0 - 46.0 [facility] Comment on above: Performed By: #### 2 30585 ####[facility],[address] [place] [address] Hemoglobin (Bld) [Mass/Vol] 11.5 g/dL Low 12.0 - 16.0 [facility] Comment on above: Performed By: #### 2 54513 ####[facility],[address] [place] [address] Lymph # 1.79 x10EE3/UL Normal 0.80 - 2.80 [facility] Comment on above: Performed By: #### 2 50169 ####[facility],[address] [place], [place] [address] Lymphocytes/100 WBC (Bld) 28.0 % Normal 20.0 - 45.0 [facility] Comment on above: Performed By: #### 2 05151 ####[facility],[address] [place] [address] MANUAL DIFF N/A Normal [facility] Comment on above: Performed By: #### 2 48429 ####[facility],[address] [place] [address] MCH (RBC) [Entitic mass] 29 pg Normal 27 - 33 [facility] Comment on above: Performed By: #### 2 13244 ####[facility],[address] [place] [address] MCHC 34 X10 3 Normal 32 - 36 [facility] Comment on above: Performed By: #### 2 71381 ####[facility],[address] [place] [address] MCV (RBC) [Entitic vol] 86 fL Normal 80 - 99 J [facility] Comment on above: Performed By: #### 2 29504 ####[place] [address] [place] # 0.54 x10EE3/UL Normal 0.20 - 1.00 [facility] Comment on above: Performed By: #### 2 42357 ####[facility],[address] [place] [address] MONOS % 8.4 % Normal 0.0 - 10.0 [facility] Comment on above: Performed By: #### 2 99724 ####[facility],[address] [place] [address] Morphology Nicho (Bld) [Interp] N/A Normal [facility] Comment on above: Performed By: #### 2 34185 ####[place] [address] Neut # 3.87 x10EE3/UL Normal 1.50 - 7.10 [facility] Comment on above: Performed By: #### 2 43380 ####[place] [address] Neutrophils/100 WBC (Bld) 60.5 % Normal 46.0 - 76.0 [facility] Comment on above: Performed By: #### 2 14843 ####[place] [address] PLATELET 270 x10EE3/UL Normal 150 - 450 [facility] Comment on above: Performed By: #### 2 83811 ####[facility],[address] [place] [address] Platelet mean volume (Bld) [Entitic vol] 8.4 fL Normal 6.6 - 10.5 [facility] Comment on above: Result Comment: AUTO MATED DIFFERENTIAL Performed By: #### 2 39773 ####[facility],[address] [place] [address] 30785 RBC 3.95 x 10EE6/UL Low 4.10 - 5.30 [facility] Comment on above: Performed By: #### 2 34762 ####[facility],[address] [place] [address]647 WBC 6.4 x 10EE3/UL Normal 4.5 - 10.8 [facility] Comment on above: Performed By: #### 2 07312 ####[facility],[address] [place] [address]1357 CMP with eGFRon 10-23-2024 AGE 49 years Normal [facility] Comment on above: Performed By: #### 2 60984 #### [facility],[address] [place] [address] 24416 Albumin [Mass/Vol] 3.5 g/dL Normal 3.4 - 5.0 [facility] Comment on above: Performed By: #### 2 96457 #### [facility],[address] [place] [address] 69491 Albumin/Globulin [Mass ratio] 1.1 {ratio} Normal 0.9 - 1.6 [facility] Comment on above: Performed By: #### 2 97388 #### [facility],[address] [place] [address] 22812 ALK PHOS 58 U/L Normal 46 - 116 [facility] Comment on above: Performed By: #### 2 90901 #### [facility],[address] [place] [address] 51005 ALT [Catalytic activity/Vol] 27 U/L Normal 16 - 63 [facility] Comment on above: Performed By: #### 2 94056 #### [facility],[address] [place], [place] [address] Anion gap [Moles/Vol] 10 mmol/L Normal 10 - 20 [facility] Comment on above: Performed By: #### 2 56672 #### [facility],[address] [place], [place] [address] AST [Catalytic activity/Vol] 20 U/L Normal 13 - 39 [facility] Comment on above: Performed By: #### 2 81933 #### [facility],[address] [place], [place] [address] B/C RATIO 13 ratio Normal 0 - 30 [facility] Comment on above: Performed By: #### 2 09231 #### [facility],[address] [place] [address] 88676 Bilirubin [Mass/Vol] 0.7 mg/dL Normal 0.2 - 1.0 [facility] Comment on above: Performed By: #### 2 43157 #### [facility],[address] [place] [address] 02467 Calcium [Mass/Vol] 8.5 mg/dL Normal 8.5 - 10.1 [facility] Comment on above: Performed By: #### 2 57547 #### [facility],[address] [place] [address] 45514 Chloride [Moles/Vol] 106 mmol/L Normal 98 - 107 [facility] Comment on above: Performed By: #### 2 32630 #### [facility],[address] [place] [address] 18635 CMP with eGFR Normal [facility] Comment on above: Result Comment: COMP REHENSIVE METABOLIC PANEL Performed By: #### 2 21969 #### [facility],[address] [place] [address] 67248 CO2 [Moles/Vol] 29.4 mmol/L Normal 21.0 - 32.0 [facility] Comment on above: Performed By: #### 2 71984 #### [facility],[address] [place] [address] 16970 Creatinine [Mass/Vol] 1.08 mg/dL High 0.55 - 1.02 [facility] Comment on above: Performed By: #### 2 63812 #### [facility],[address] [place] [address] 97215 eGFR 54 ML/MINUTE Low 60 - 999 [facility] Comment on above: Performed By: #### 2 37482 #### [facility],[address] [place] [address] 30945 GFR/1.73 sq M.predicted among non-blacks MDRD (S/P/Bld) [Vol rate/Area] mL/min/{1.73_m2} Normal 60 - 999 [facility] Comment on above: Result Comment: ACCO RDING TO THE NATIONAL KIDNEY DISEASE EDUCATION PROGRAM(NKDE), A NORMAL eGFR IS A VALUE GREATER THAN OR EQUAL TO 60 ML/MIN/1.73 SQ METERS. CHRONIC KIDNEY DISEASE: <60mL/MIN/1.73 SQ METERS KIDNEY FAILURE: <15mL/MIN/1.73 SQ METERS THIS TEST SHOULD ONLY BE USED FOR PATIENTS 18 YEARS OF AGE AND OLDER. Performed By: #### 2 16360 #### [facility],[address] [place] [address] 46861 Globulin (S) [Mass/Vol] 3.3 g/dL Normal 1.5 - 3.8 [facility] Comment on above: Performed By: #### 2 54444 #### [facility],[address] [place] [address] 84331 Glucose [Mass/Vol] 79 mg/dL Normal 74 - 106 [facility] Comment on above: Performed By: #### 2 47792 #### [facility],[address] [place] [address] 03155 Potassium [Moles/Vol] 3.8 mmol/L Normal 3.5 - 5.1 [facility] Comment on above: Performed By: #### 2 52543 #### [facility],[address] [place] [address] 16392 Protein [Mass/Vol] 6.8 g/dL Normal 6.4 - 8.2 [facility] Comment on above: Performed By: #### 2 85170 #### [facility],[address] [place] [address] 19247 Sodium [Moles/Vol] 142 mmol/L Normal 136 - 145 [facility] Comment on above: Performed By: #### 2 45079 #### [facility],[address] [place] [address] 54138 Urea nitrogen [Mass/Vol] 14 mg/dL Normal 7 - 18 [facility] Comment on above: Performed By: #### 2 00845 #### [facility],[address] [place] [address] Orthopedic Visit Reporton Orthopedic Visit Report [facility] [address] [place] [address] OFFICE VISIT Date of Service: 10/05/24 MR#: [id number] Acct: [id number] Name: ANANTH DAVENPORT Rep #: [id number] : 1975 Provider: Dr. Raghav puente MD Age/Sex: 49/F Location: [facility] Status: Signed Intake Vital Signs 12/20/23 08:32 Height 5 ft Weight: 129 lb 8 oz BMI 25.2 Intake Visit Reasons: LEFT SHOULDER/HAND Is patient in pain?: Yes Pain scale (1-10): 6 Allergies Latex, Natural Rubber Adverse Reaction (Intermediate, Verified 10/05/24 09:16) rash/itchy Medications ???Medication ???Instructions ???Recorded ???Confirmed ???Type levothyroxine 50 mcg capsule 50 mcg PO DAILY 02/07/21 10/05/24 History folic acid 1 mg tablet 1 mg PO QWEEK 11/19/22 10/05/24 Hi story methotrexate sodium 2.5 mg tablet 2.5 mg PO QWEEK 11/19/22 10/05/24 History famotidine 40 mg tablet 40 mg PO QHS 10/05/24 10/05/24 His tory lansoprazole 30 mg capsule,delayed 30 mg PO BID 10/05/24 10/05/24 H istory release [facility] Medical History (Updated 10/05/24 @ 09:29 by Raghav gNo MD) Left wrist pain Left lateral epicondylitis Tendinitis of extensor tendon of left hand Right carpal tunnel syndrome Right hand pain Aortic valve insufficiency Surgical History H/O arthroscopy of right knee History of cholecystectomy History of nephrectomy H/O tubal ligation Family History Brother Heart disease Mother Cancer Arthritis Father Hypertension Social History Smoking Status: Never smoker alcohol intake: never HPI LEFT SHOULDER/HAND Details: This documentation accurately reflects the service provided and the decisions made by me, Dr. Raghav Ngo MD 10/05/24 9000. Part of today???s visit was documented by [ ], acting as scribe. ANANTH DAVENPORT is a 49 year old F here today for L shoulder and L hand injury. Seen outside clinic. Patient had a fall about 8 days ago. This is at work. 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 This has been determined according to the patient to be not Worker's Compensation. Patient mostly has pain in the dorsum aspect of the wrist is wearing a wrist brace that seems to help when the patient does not wear the brace having some numbness into the index and middle finger somewhat going up into the forearm. Some mild shoulder and elbow pain but that is settling down the patient has full elevation of the shoulder and full range of motion of the elbow most of the pain is in the wrist. Brought imaging from [place]. Supplemental Info X-ray reports of the forearm left side from 09/28/2024 as well as left shoulder 2 views left wrist 3 views all show no acute osseous abnormality. I independently reviewed the imaging. Concur with radiologist report. Repeat x-rays 3 views left wrist obtained demonstrate nil acute. Coding Level of Care Code Off vis,est,level 3 Diagnoses Left wrist pain M25.532 Assessment and Plan Assessment and Plan (1) Left wrist pain: Status: Acute Plan: 41-year-old female left wrist pain after a fall. Likely has a contusion to the median nerve as well. I see no signs of a fracture there on either the original or other repeat x-rays. That being said could still have sustained a soft tissue injury or even a radiographically occult fracture. I recommend using the brace as needed for the next 2-3 weeks as tolerated gentle range of motion of the brace a few times a day and follow-up in 6 weeks time if this is no better or worse. Orders: Orders Wrist min 3 Views Today M25.532 - Pain in left wrist Ortho Exam General General: Yes no acute distress Neurologic: Yes alert and Yes oriented x3 Psychologic: Yes reasonable and appropriate Right Wrist/Hand Skin/Wound: Yes Swelling (mild) and No Ecchymosis Left Wrist/Hand Skin/Wound: Yes CDI, Yes Swelling (mild), No Ecchymosis, Yes nail intact, Yes capillary refill normal and No erythema Left Wrist: Yes ROM-Extension 0-60, Yes ROM-Flexion 0-80, Yes ROM-Pronation 0-80 and Yes ROM- Supination 0-90; No Thenar Atrophy and No Hypothenar Atrophy Motor: EPL: 4, FDP-2: 4, 1st Dorsal Interosseous: 4 and APB: 4 Sensation: Radial: I, Ulnar: I and Median: I WRIST: Strong radial pulse forearm is soft. There is mild pain at the distal radius Left Elbow Skin/Wound: Yes CDI, No eccymosis, No erythema and No Swelling ROM: Yes Flexion 0-140, Supination 0-90 and Pronation 0-80 Motor: Elbow Extension: 4 and Elbow Flexion: 4 Left Shoulder Testing: Yes AROM-Forward Elevation 0-180 and Yes AROM-External Rotation at side 0-60 10/05/24 0945 Date __ (more content not included)... Normal [facility] Wrist min 3 Viewson 10-06-19 Wrist min 3 Views [facility] [address] [place] [address] Wrist min 3 Views MR#: [id number] Acct: [id number] Name: ANANTH DAVENPORT Rep #: [id number] : 1975 F 49 From: Sohail Pearce MD PCP: Dr. Clement Michael MD Status: DEP AMB Study: Wrist min 3 Views Date of Exam: 10/05/24 Exam# [id number] Ordering Dr: Raghav Ngo MD EXAM: XR Left Wrist Complete, 3 or More Views CLINICAL INDICATION: PAIN AFTER A FALL TECHNIQUE: Frontal, lateral and oblique views of the left wrist. COMPARISON: No relevant prior studies available. FINDINGS: BONES/JOINTS: See below. SOFT TISSUES: Soft tissue swelling without acute fracture. No radiopaque foreign body. RAD/Wrist min 3 Views IMPRESSION: 1. Soft tissue swelling without acute fracture. 2. If symptoms persist, further evaluation with CT is recommended. Reading [facility] CC: Dr. Clement Michael MD; Dr. Raghav Ngo MD Visualizer: Signed Normal [facility] ED MED ADMINISTRATION DETAIL on 09-28-2024 ED MED ADMINISTRATION DETAIL C2 Tactical Analysis Technician Medication Administration Record [address] [address] [id number] 09/28/2024 Patient: ANANTH DAVENPORT Sex: Female : 1975 Age: 49y MEASUREMENTS: Wt: 59.0 kg, Ht/Yfn: 60.0 in, BMI: 25.39 ALLERGIES: No known drug allergies Medication Ordered Medication Administration Date/Time Acetaminophen 10:28 09/28 Acetaminophen (Tylenol) PO 975 mg given. Allergies Given (Tylenol) PO 975 verified and confirmed 5 rights. Information reviewed. Verbalizes 10:28 09/28/2024 mg (NOW x1) understanding. - 10:28 Bertha Tompkins R.N. Scanned 1 of 1 Normal [facility] ED NURSES CLINICAL NOTEon ED NURSES CLINICAL NOTE Nurse Narrative Nurse Clinical Narrative [facility] [address] [place] [address] [id number] 09/28/2024 09:26:00 Patient: ANANTH DAVENPORT Sex: Female : 1975 Age: 49y Disposition: Discharge to Home Disposition Decision Time: 10:53 09/28/2024 Departure Time: 11:03 09/28/2024 TRIAGE Historian: (patient). Primary physician (Harley Zamudio). Triage time: 09:25 09/28/2024. Acuity: LEVEL 4. Chief Complaint: INJURY TO LEFT WRIST and LEFT SHOULDER. Occurred 10:30 09/27/2024. SEPSIS SCREEN: NEGATIVE. SIRS criteria negative. No possible sources of infection. -- 09:09/28/24 KEEGAN Morfin R.N. 09:27 09/28/24. BP: 146/68 MAP: 94. HR: 77. RR: 16. O2 saturation: 100% Temperature: 98 F. Pain level now 7/10. -- 09:28 09/28/24 KEEGAN Morfin R.N. Measurements: 09:09/28/24 Wt: 59.0 kg, Ht/Yfn: 60.0 in, BMI: 25.39 -- 09:09/28/24 KEEGAN Morfin R.N. Medications: folic acid 1 mg tablet: 2 tablet once a day. -- 09:09/28/24 KEEGAN Morfin R.N. azelastine 137 mcg (0.1 %) nasal spray: 2 spray once a day. -- 09:09/28/24 KEEGAN Morfin R.N. tramadol 50 mg tablet: 1 tablet as directed as needed. -- 09:09/28/24 KEEGAN Morfin R.N. prednisone 10 mg tablet: 1 tablet as directed. (as needed) -- 09:09/28/24 KEEGAN Morfin R.N. 1 of 4 Nurse Narrative methotrexate sodium 2.5 mg tablet: 8 tablet once a week. (on Sundays) -- 09:09/28/24 KEEGAN Morfin R.N. ergocalciferol (vitamin D2) 1,250 mcg (50,000 unit) capsule: 1 capsule once a day. (on Wednesday) -- 09:09/28/24 KEEGAN Morfin R.N. lansoprazole 30 mg capsule,delayed release: 1 capsule twice a day. -- 09:09/28/24 KEEGAN Morfin R.N. hydroxychloroquine 200 mg tablet: 1 1/2 tablet once a day. -- 09:09/28/24 KEEGAN Morfin R.N. famotidine 40 mg tablet: 1 tablet every night at bedtime. -- 09:09/28/24 KEEGAN Morfin R.N. levothyroxine 75 mcg tablet: 1 tablet once a day. -- 09:09/28/24 KEEGAN Morfin R.N. 09:09/28/24. Preferred Pharmacy: ([facility]). -- 09:09/28/24 KEEGAN Morfin R.N. Allergies: no known drug allergies -- 09:09/28/24 KEEGAN Morfin R.N. Home Medications/Allergy Information Source: patient -- 09:09/28/24 KEEGAN Morfin R.N. Problems: aortic regurgitation -- 09:09/28/24 KEEGAN Morfin R.N. ADDITIONAL SURGERIES: Kidney removal -- 09:09/28/24 KEEGAN Morfin R.N. Cholecystectomy -- 09:09/28/24 KEEGAN Morfin R.N. Tubal Ligation -- 09:09/28/24 KEEGAN Morfin R.N. History 09:09/28/24. PAST MEDICAL HX: Other immunizations: up-to-date. Right dominant extremity. SOCIAL HX: Never smoker. No alcohol use or drug use. The patient has not traveled outside the [place] Infectious disease exposure: No infectious disease exposure. 2 of 4 Nurse Narrative ABUSE ASSESSMENT: The patient answered yes to the question(s) Do you feel safe in your home? and no to the question(s) Are you afraid to go home?. Abuse denied. No suspicion of abuse. SELF HARM ASSESSMENT: Self harm assessment was performed. The patient answered no to the question(s) Have you recently felt down, depressed, or hopeless? and Do you have thoughts of harming or killing yourself?. FALL RISK ASSESSMENT: Fall risk assessment completed. Risk factors identified include patient history of fall. -- 09:31 09/28/24 EDT Tawana Morfin R.N. Interventions 09:25 09/28/24. Advanced care plan discussed with patient (Full Code). -- 09:31 09/28/24 DIRKT Tawana Morfin R.N. PHYSICAL ASSESSMENT 09:58 09/28/24. Ambulatory to room. GENERAL / NEURO / PSYCH: Oriented X 4. Alert. Appears in no acute distress. ( PT arrives stating she fell yesterday while at work yesterday around 1030am. Pt state she landed more to the left side and braced her arms out when she hyperextended her wrist. Pt states 7/10 pain and not getting any better from yesterday). The patient has numbness of the left arm and hand. EXTREMITIES: Limited ROM present. Capillary refill is less than 2 seconds in the extremities. Extremity pulses are within normal limits. Left wrist: tenderness and ecchymosis located in the proximal hand and dorsal aspect of the wrist. Limited ROM secondary to pain (diminished flexion and extension). No erythema, swelling, laceration, abrasion or puncture wound. No foreign body or deformity. SKIN: Skin intact. Skin is warm and dry. -- 10:08 09/28/24 KEEGAN Morfin R.N. NURSING PROGRESS NOTES 09:57 09/28/24. Patient transported to radiology by stretcher with orthopedic radiologic technologist. -- 10:32 09/28/24 KEEGAN Morfin R.N. 10:23 09/28/24. SPLINT APPLIED: Short arm OCL splint applied to left forearm, wrist and hand. Distal pulses intact, sensation intact and motor within normal limits. Patient tolerated the procedure well. Splinting applied by E (more content not included)... Normal [facility] ED ORDER SHEET (CPOE ONLY)on 09-28-2024 ED ORDER SHEET (CPOE ONLY) Order Sheet Order Sheet [address] [place] [address] [id number] 09/28/2024 [id number] Sex[facility] Female : 1975 Age: 49y MEASUREMENTS: Wt: 59.0 kg, Ht/Yfn: 60.0 in, BMI: 25.39 ALLERGIES: No known drug allergies MEDICATION/IV/DRIP/F LUID ORDERS Order Description Priority Entered Acknowledged Completed Acetaminophen (Tylenol) 09:45 09/28/2024 10:28 PO975 mg (NOW x1) Dani Sal, 09/28/2024 Felipe Morfin R.N. LAB ORDERS Order Description Priority Entered Acknowledged Collected Completed DIAGNOSTIC STUDY ORDERS Order Description Priority Entered Acknowledged Completed Shoulder L Complete Stat Stat 09:45 09/28/2024 10:04 10:31 Dani Sal, 09/28/2024 09/28/2024 Tawana Danielson R.N. R.N. Order Comments: 09:44 09/28/2024: Status: Not . Dani Sal D.O. Reason for Study: Shoulder Injury Wrist Lt Complete Stat Stat 09:45 09/28/2024 10:04 10:31 Dain Sal, 09/28/2024 09/28/2024 1 of 2 Order Sheet Tawana Danielson R.NTony R.N. Order Comments: 09:45 09/28/2024: Status: Not . Dani Sal D.O. Reason for Study: Trauma/Injury Forearm L 2V Stat Stat 09:45 09/28/2024 10:04 10:31 Dani Sal, 09/28/2024 09/28/2024 Tawana Danielson R.N. R.N. Order Comments: 09:45 09/28/2024: Status: Not . Dani Sal D.O. Reason for Study: Forearm/Elbow/Wrist Pain STAFF ORDERS Order Description Priority Entered Acknowledged Collected Completed Arm Sling 10:40 09/28/2024 10:49 09/28/2024 10:52 09/28/2024 Tawana Marina Shauna Ewing, D.O. R.N. RTonyNTony [Electronically signed by Dani Sal D.O. (09/28/2024 14:02 EDT)] 2 of 2 Normal [facility] ED PHYSICIAN CLINICAL REPORT on 09-28-2024 ED PHYSICIAN CLINICAL REPORT Narrative Physician Clinical Narrative [facility] [address] [place] [address] [id number] 09/28/2024 09:26:00 Patient: ANANTH DAVENPORT Sex: Female : 1975 Age: 49y Disposition: Discharge to Home Disposition Decision Time: 10:53 09/28/2024 Departure Time: 11:03 09/28/2024 Measurements Wt: 59.0 kg, Ht/Yfn: 60.0 in, BMI: 25.39 Initial Vital Sign Measured Time BP MAP HR RR O2Sat ETCO2 Temp Pain GCS RTS 09:27 09/28/2024 146/68 94 77 16 100% 98.0 F 7 Time Seen: 09:33 09/28/2024. Arrived- By private vehicle. Historian- patient. Independent historian- family. HISTORY OF PRESENT ILLNESS Chief Complaint: Injury to the left shoulder and left wrist and left forearm and Chief Complaint- she also complains of pain to her left hip area. she is able to move the hip and walk. She also noticed some ecchymosis on her left wrist area. She tripped and fell around 10:00 a.[address]. yesterday at the place of employment. Denies any neck pain no chest pain or shortness of breath. Says the pain is a 7/10 it is a sharp pain that is worse with movement nothing really makes it better she would try brace which really said that really did not help she is right-hand dominant. The injury happened yesterday. Fell. The patient sustained a direct blow. Occurred at work. Patient is experiencing moderate pain. Patient also notes injury to the left lower extremity (hip) and (thigh). 1 of 7 Narrative REVIEW OF SYSTEMS SKIN: No suspected foreign body or skin laceration. NEUROLOGICAL: No tingling or weakness. MUSCULOSKELETAL: No swelling. Status: Not . PAST HISTORY See nurses notes. aortic regurgitation Surgeries: Cholecystectomy Kidney removal Tubal Ligation Medications: azelastine 137 mcg (0.1 %) nasal spray: 2 spray once a day. ergocalciferol (vitamin D2) 1,250 mcg (50,000 unit) capsule: 1 capsule once a day. (on Wednesday) famotidine 40 mg tablet: 1 tablet every night at bedtime. folic acid 1 mg tablet: 2 tablet once a day. hydroxychloroquine 200 mg tablet: 1 1/2 tablet once a day. lansoprazole 30 mg capsule,delayed release: 1 capsule twice a day. levothyroxine 75 mcg tablet: 1 tablet once a day. methotrexate sodium 2.5 mg tablet: 8 tablet once a week. (on Sundays) prednisone 10 mg tablet: 1 tablet as directed. (as needed) tramadol 50 mg tablet: 1 tablet as directed as needed. Allergies: no known drug allergies Home Medications/Allergy Information Source: patient - Tawana Morfin R.N., 09/28/2024 09:29 EDT SOCIAL HISTORY 2 of 7 Narrative Never smoker. No alcohol use. ADDITIONAL NOTES The nursing notes have been reviewed. PHYSICAL EXAM Appearance: Alert. Oriented X3. Appears to be in pain. Head: Head atraumatic. Eyes: Pupils equal, round and reactive to light. Eyes normal inspection. ENT: Ears normal. Nose normal. Neck: Normal inspection. Neck supple. CVS: Normal heart rate. Heart sounds normal. Respiratory: No respiratory distress. Breath sounds normal. Chest nontender. Abdomen: No visible injury. Back: Normal inspection. No tenderness. Skin: Normal skin color. Normal skin turgor. (patient has some ecchymosis to the left wrist more on the middle aspect of the wrist. She has no specific left scaphoid tenderness. She had generalized tenderness to her wrist. She is able to move her shoulder. She also has pain on her left hip area. I do not appreciate any bruising. She did have some tenderness but she had good range of motion in her left hip she is able to ambulate.). Extremities: Extremities otherwise negative. Neuro, Vascular and Tendons: Sensation intact. Motor intact. Neuro: Oriented X 3. No motor deficit. LABS, X-RAYS, AND EKG Diagnostic Study Tests: FOREARM LT Final EXAM Date: 09/28/2024 10:11:00 EDT MsgRcvd: 09/28/2024 10:14 EDT [place] [address] Patient: ANANTH DAVENPORT Phone#: : 1975 Age: 49 Gender: F Pt. Type: ER 3 of 7 Narrative Account: [id number] Location: [facility] Ordering: DANI SAL Exam Date: 09/28/2024/9:54 Family Phys: Charge Code: 626551 Physician: Rolette Order #: [id number] Dose#: PROCEDURE: X-RAY FOREARM LT 2 VIEWS COMPARISON: None. INDICATIONS: Injury. FINDINGS: BONES: Normal. No significant arthropathy or acute abnormality. No fracture. SOFT TISSUES: Negative. No visible soft tissue swelling. EFFUSION: None visible. OTHER: Negative. CONCLUSION: 1. No acute osseous abnormality Dictated by: Mary Manuel MD on 09/28/2024 at 10:10 Approved by: Mary Manuel MD on 09/28/2024 at 10:11 SHOULDER COMPLETE LT Final EXAM Date: 09/28/2024 10:09:00 EDT MsgRcvd: 09/28/2024 10:13 EDT [place] [address] (more content not included)... Normal [facility] ED SUPER BILLon 09-28-2024 [place] [address] [id number] 09/28/2024 Patient: ANANTH DAVENPORT Sex: Female : 1975 Age: 49y Item Facility Professional Category Description Code Code Quantity Fee Total Nurse/E/M EMERGENCY 855833 1 $0.00 $0.00 DEPARTMENT VISIT MODERATE SEVERITY (02582-95) Physician/Procedures Splint - Short 118515 1 $0.00 $0.00 Arm (72065-LN) Grand Total $0.00 Providers Dani Sal D.O. Chief Complaint Injury to the left shoulder and left wrist and left forearm and Chief Complaint- she also complains of pain to her left hip area. she is able to move the hip and walk. She also noticed some ecchymosis on her left wrist area. She tripped and fell around 10:00 a.m. yesterday at the place of employment. Denies any neck pain no chest pain or shortness of breath. Says the pain is a 7/10 it is a sharp pain that is worse with movement nothing really makes it better she would try brace which really said that really did not help she is right-hand dominant. 1 of 2 Superbill Principal Diagnosis Multiple contusions to the left shoulder, left forearm, left wrist and left hip.No contusion to the left thumb, left index finger, left middle finger, left ring finger or left little finger. No left fingernail injury. ICD-10 Codes S40.012A: Contusion of left shoulder, initial encounter S50.12xA: Contusion of left forearm, initial encounter S60.212A: Contusion of left wrist, initial encounter S70.02xA: Contusion of left hip, initial encounter 2 of 2 Normal [facility] ED VISIT SUMMARYon ED VISIT SUMMARY Visit Overview Visit Overview [address] [place] [address] [id number] 09/28/2024 Patient: ANANTH DAVENPORT Sex: Female : 1975 Age: 49y 09/28/2024 02:02 PM EDT ED Arrival:09:26 09/28/2024 EDT Status:not Recent Travel:no Language:eng Adv Directive: Isolation Status: Ethnicity:N Fall Risk:risk Infectious Disease Exposure:no Measurements:5' / 152.4 Self-Harm Status:risk Sepsis Screen:negative cm 130.0 lb / 59.0 kg Chief Complaint:INJURY TO LEFT SHOULDER, INJURY TO LEFT WRIST, (10:30 09/27/2024), and (Harley Zamudio) ALLERGIES No Known Drug Allergies HOME MEDICATIONS azelastine 137 mcg (0.1 %) nasal spray: 2 spray once a day. ergocalciferol (vitamin D2) 1,250 mcg (50,000 unit) capsule: 1 capsule once a day. (on Wednesday) famotidine 40 mg tablet: 1 tablet every night at bedtime. folic acid 1 mg tablet: 2 tablet once a day. hydroxychloroquine 200 mg tablet: 1 1/2 tablet once a day. Visit Overview lansoprazole 30 mg capsule,delayed release: 1 capsule twice a day. levothyroxine 75 mcg tablet: 1 tablet once a day. methotrexate sodium 2.5 mg tablet: 8 tablet once a week. (on Sundays) prednisone 10 mg tablet: 1 tablet as directed. (as needed) tramadol 50 mg tablet: 1 tablet as directed as needed. PAST MEDICAL HISTORY / PROBLEMS aortic regurgitation Other immunizations: up-to-date Right dominant extremity See nurses notes PAST SURGICAL HISTORY Cholecystectomy Kidney removal Tubal Ligation SOCIAL HISTORY Smoking status: No Alcohol use: No Drug use: No ED COURSE MEDICATIONS GIVEN IN EMERGENCY DEPARTMENT 10:28 09/28/24 Acetaminophen (Tylenol) PO 975 mg IV SITE INFORMATION INTAKE OUTPUT REASSESMENT (most recent) Visit Overview 09:58 09/28/24. Ambulatory to room. GENERAL / NEURO / PSYCH: Oriented X 4. Alert. Appears in no acute distress. ( PT arrives stating she fell yesterday while at work yesterday around 1030am. Pt state she landed more to the left side and braced her arms out when she hyperextended her wrist. Pt states 7/10 pain and not getting any better from yesterday). The patient has numbness of the left arm and hand. EXTREMITIES: Limited ROM present. Capillary refill is less than 2 seconds in the extremities. Extremity pulses are within normal limits. Left wrist: tenderness and ecchymosis located in the proximal hand and dorsal aspect of the wrist. Limited ROM secondary to pain (diminished flexion and extension). No erythema, swelling, laceration, abrasion or puncture wound. No foreign body or deformity. SKIN: Skin intact. Skin is warm and dry. VITAL SIGNS First Vitals Last Vitals Temp 09:09/28/24 98.0 F Temp 09:09/28/24 98.0 F BP 09:09/28/24 146/68 BP 09:09/28/24 146/68 HR 09:09/28/24 77 HR 09:09/28/24 77 RR 09:09/28/24 16 RR 09:09/28/24 16 O2 Sat 09:09/28/24 100% O2 Sat 09:09/28/24 100% Pain 09:27 09/28/24 7 Pain 09:27 09/28/24 7 ETCO2 09:09/28/24 ETCO2 09:09/28/24 GCS 09:27 09/28/24 GCS 09:09/28/24 RTS 09:09/28/24 RTS 09:09/28/24 PROCEDURES NURSING INTERVENTIONS Splint LABS / STUDIES LABS / STUDIES ORDERED Forearm L 2V Shoulder L Complete Wrist Lt Complete CLINICAL IMPRESSION 3 of 4 Visit Overview MULTIPLE CONTUSIONS TO THE LEFT SHOULDER, LEFT FOREARM, LEFT WRIST AND LEFT HIP.NO CONTUSION TO THE LEFT THUMB, LEFT INDEX FINGER, LEFT MIDDLE FINGER, LEFT RING FINGER OR LEFT LITTLE FINGER. NO LEFT FINGERNAIL INJURY 4 of 4 Normal [facility] ED VITALS FLOW SHEETon 09-28 ED VITALS FLOW SHEET Vitals Vital Sign Flow Sheet [address] [address] [id number] 09/28/2024 Patient: ANANTH DAVENPORT Sex: Female : 1975 Age: 49y Measurements Wt: 59.0 kg, Ht/Yfn: 60.0 in, BMI: 25.39 Measured Time BP MAP HR RR O2Sat ETCO2 Temp Pain GCS RTS 09:09/28/2024 146/68 94 77 16 100% 98.0 F 7 1 of 1 Normal [facility] FOREARM LTon 09-28-2024 FOREARM LT [address] [address] Patient: ANANTH DAVENPORT Phone#: : 1975 Age: 49 Gender: F Pt. Type: ER Account: [id number] Location: 05 Ordering: DANI SAL Exam Date: 09/28/2024/9:54 Family Phys: Charge Code: [id number] Physician: Rolette Order #: [id number] Dose#: PROCEDURE: X-RAY FOREARM LT 2 VIEWS COMPARISON: None. INDICATIONS: Injury. FINDINGS: BONES: Normal. No significant arthropathy or acute abnormality. No fracture. SOFT TISSUES: Negative. No visible soft tissue swelling. EFFUSION: None visible. OTHER: Negative. CONCLUSION: 1. No acute osseous abnormality Dictated by: Mary Manuel MD on 09/28/2024 at 10:10 Approved by: Mary Manuel MD on 09/28/2024 at 10:11 Normal [facility] SHOULDER COMPLETE LTon 09-28 SHOULDER COMPLETE [place] [address] Patient: ANANTH DAVENPORT Phone#: : 1975 Age: 49 Gender: F Pt. Type: ER Account: [id number] Location: 05 Ordering: [facility] Exam Date: 09/28/2024/9:49 Family Phys: Charge Code: [id number] Physician: Rolette Order #: [id number] Dose#: PROCEDURE: X-RAY SHOULDER LT MIN 2 VIEWS COMPARISON: None. INDICATIONS: Injury. FINDINGS: BONES: Normal. No significant arthropathy or acute abnormality. Humeral head is normal in contour. Joint space is maintained. No fracture or dislocation. SOFT TISSUES: Negative. No visible soft tissue swelling. EFFUSION: None visible. OTHER: Negative. CONCLUSION: 1. No acute osseous abnormality Dictated by: Mary Manuel MD on 09/28/2024 at 10:08 Approved by: Mary Manuel MD on 09/28/2024 at 10:09 Normal [facility] WRIST COMPLETE LTon 09-29-19 25 WRIST COMPLETE [place] [address] Patient: ANANTH DAVENPORT Phone#: : 1975 Age: 49 Gender: F Pt. Type: ER Account: [id number] Location: 052 Ordering: [facility] Exam Date: 09/28/2024/9:54 Family Phys: Charge Code: [id number] Physician: Rolette Order #: [id number] Dose#: PROCEDURE: X-RAY WRIST LT COMPLETE MIN 3 VIEWS COMPARISON: [facility], XR, WRIST COMPLETE LT, 10/08/2023, 11:44. INDICATIONS: Injury. FINDINGS: BONES: Normal. No significant arthropathy or acute abnormality. No appreciable fracture or dislocation. SOFT TISSUES: Negative. No visible soft tissue swelling. EFFUSION: None visible. OTHER: Negative. CONCLUSION: 1. No appreciable acute osseous abnormality. Note: An acute wrist fracture may not be initially evident on radiograph. If there is persistent pain in 7-10 days recommend repeat radiograph. Dictated by: Mary Manuel MD on 09/28/2024 at 10:11 Approved by: Mary Manuel MD on 09/28/2024 at 10:12 Normal [facility] URINEon 08-28-2024 Beta HCG ( test) Ql (U) Negative Normal NEGATIVE [facility] Comment on above: Performed By: #### 2 [id number] #### [place] [address] EXTERNAL QC DONE? YES Normal [facility] Comment on above: Result Comment: Very dilute urine specimens, as indicated by a low specific gravity, may not contain inside technical sales representative levels of hCG. If is still suspected, a first morning urine specimen should be collected 48 hours later and tested. Performed By: #### 2 [id number] #### [facility],[address] [place] [address] INTERNAL QC PASS Normal [facility] Comment on above: Performed By: #### [id number] #### [facility],[address] [place], [place] [id number] PROTEIN ELECTROPHORESIS , SE RUM [CCL]on 08-25-2024 PROTEIN ELECTROPHORESIS , SERUM [CCL] Normal [facility] Comment on above: Result Comment: _PRO TEIN ELECTROPHORESIS, SERUM [CCL]_ SEE SEPERATE REPORT Performed By: #### 2 [id number] ####[facility],[address] [place] [address] US KIDNEYon 08-25-2024 KIDNEY [place] [address] Patient: ANANTH DAVENPORT Phone#: : 1975 Age: 49 Gender: F Pt. Type: Out Account: [id number] Location: [facility] Ordering: GRACIE CLEVELAND Exam Date: 08/25/2024/13:23 Family Phys: DESMOND ZAMUDIO Charge Code: [id number] Physician: Rolette Order #: [id number] Dose#: PROCEDURE: KIDNEY ULTRASOUND COMPARISON: [facility], MR, LUMBAR SPINE W/O CONT, 01/02/2021, 13:25. [facility], US, KIDNEY, 01/26/2020, 8:32. INDICATIONS: Chronic kidney disease, Stage III TECHNIQUE: Ultrasound examination was performed of the kidneys and bladder. FINDINGS: RIGHT KIDNEY: The right kidney is 11.2 x 4.3 x 5.5 centimeters. In the upper pole the renal cortex is a 5 millimeter echogenic focus without shadowing. Similar structure is present on previous examination. Prior exam echogenicity measured 3 millimeters in size. LEFT KIDNEY: The left kidney is surgically absent. OTHER: Negative. CONCLUSION: 1. Echogenic focus in the right renal cortex is present. 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 Shadowing is not identified. 2. There is no evidence of hydronephrosis. Dictated by: Kimmie Santoro MD on 08/25/2024 at 14:18 Approved by: Kimmie Santoro MD on 08/25/2024 at 14:32 Normal [facility] DNA ANTIBODY [CCL]on 025 DNA Antibody 7 IU/mL Normal <=200 [facility] Comment on above: Result Comment: Nega tive: <200 IU/mL Equivocal: 201-300 IU/mL Moderate Positive: 301-800 IU/mL Strong Positive: >801 IU/mL Performed By: #### 2 86502 #### [facility],[address] [place] [address]6097 MISC LABon 08-24-2024 [facility] Normal [facility] Comment on above: Result Comment: SEE SEPERATE REPORT Performed By: #### 2 08425 ####[facility],[address] [place] [address] 87792 MYELOPEROXIDASE AUTOANTIBODI ES [CCL]on 08-24-2024 Myeloperoxid AutoAb <0.2 Normal <1.0 [facility] Comment on above: Result Comment: This test is used as an aid in diagnosis of patients with autoimmune vasculitidies. The final interpretation should be done in conjunction with ANCA test results and clinical correlation. [facility] [address] [place] [address] Gianni Terrazas III, M.D. [id number] Performed By: #### 2 77190 #### [facility],[address] [place] [address] 90812 NEUTROPHIL CYTOPLASMIC ANTIB JEFF [CCL]on 08-24-2024 C-ANCA byImmunofluorescence Negative Normal Negative [facility] Comment on above: Performed By: #### 2 11723 ####[facility],[address] [place] [address] 26417 INTERPRETATION (ANCA) Weak P-ANCA patter n on confirmatory indirect immunofluorescence but negative ant Normal [facility] Comment on above: Performed By: #### 2 03008 ####[facility],[address] [place] [address] 11213 Myeloperoxidase Ab <0.2 Normal <1.0 [facility] Comment on above: Performed By: #### 2 86953 ####[facility],[address] [place] [address] 65464 P-ANCA byImmunofluorescence Positive Abnormal Negative [facility] Comment on above: Performed By: #### 2 69129 ####[facility],[address] [place] [address] 67955 Proteinase-3 Ab <0.2 Normal <1.0 [facility] Comment on above: Performed By: #### 2 79454 ####[facility],[address] [place] [address] 86145 STAFF REVIEW (ANCA) Reviewed by Pavel Lincoln, Ph.D D(TAYA) Normal [facility] Comment on above: Result Comment: This test is used as an aid in diagnosis of patients with autoimmune vasculitides. The final interpretation should be done in conjunction with ANCA test results and clinical correlation. [address] [place] [address] Gianni Terrazas III, M.D. [id number] Performed By: #### 2 19913 ####[address] [address] PROTEINASE 3 AUTOANTIBODIES [CCL]on 08-24-2024 Proteinase 3 Ab <0.2 Normal <1.0 [facility] Comment on above: Result Comment: This test is used as an aid in diagnosis of patients with autoimmune vasculitidies. The final interpretation should be done in conjunction with ANCA test results and clinical correlation. [address] [place] [address] Gianni Terrazas III, M.D. [id number] Performed By: #### 2 27880 ####[address] [address] URINE CREATININE AND PROTEIN RATIOon 08-24-2024 URINE CREATININE AND PROTEIN RATIO Normal [facility] Comment on above: Result Comment: SEE SEPERATE REPORT Performed By: #### 2 59173 #### [address] [address] ANTI NEUTRO CYTO ABon 2024 INTERPRETATION (ANCA) Weak P-ANCA patter n on confirmatory indirect immunofluorescence but negative anti-Proteinase III and anti-Myeloperoxidase results on multiplex flow immunoassay. This combination may suggest non-specific reactivity due to other autoimmune diseases, idiopathic pulmonary fibrosis, or P-ANCA vasculitis in remission. Anti nuclear antibody test may be considered. Clinical correlation is required. Normal [facility] Comment on above: Order Comment: Speci men Type: BLOOD SPECIMEN Ordering Facility: [facility] Address: [address] [place] [address] Performed By: #### 6 969-0, ANCAC, 4485-9, 4498-2, DNAAB, ANCA #### [facility] CLIA [id number] [address] [place] [address] [place] Myeloperoxidase Ab Qn (S) <0.2 Normal <1.0 [facility] Comment on above: Order Comment: Speci men Type: BLOOD SPECIMEN Ordering Facility: [facility] Address: [address] [place], [place] [address] Performed By: #### 6 969-0, ANCAC, 4485-9, 4498-2, DNAAB, ANCA #### [facility] CLIA [id number] [address] [place] [address] [place] Neutrophil cytoplasmic Ab.classic IF Ql (S) Negative Normal Negative [facility] Comment on above: Order Comment: Speci men Type: BLOOD SPECIMEN Ordering Facility: [facility] Address: [address] [place], [place] [address] Performed By: #### 6 969-0, ANCAC, 4485-9, 4498-2, DNAAB, ANCA #### [facility] CLIA [id number] [address] [place] [address] [place] Neutrophil cytoplasmic Ab.perinuclear IF Ql (S) Positive Abnormal Negative [facility] Comment on above: Order Comment: Speci men Type: BLOOD SPECIMEN Ordering Facility: [facility] Address: [address] [place], [place] [address] Performed By: #### 6 969-0, ANCAC, 4485-9, 4498-2, DNAAB, ANCA #### [facility] CLIA [id number] [address] [place] [address] [place] Proteinase 3 Ab Qn (S) <0.2 Normal <1.0 [facility] Comment on above: Order Comment: Speci men Type: BLOOD SPECIMEN Ordering Facility: [facility] Address: [address] [place] [address], [place] [address] Performed By: #### 6 969-0, ANCAC, 4485-9, 4498-2, DNAAB, ANCA #### [facility] CLIA [id number] [address] [address] [place] STAFF REVIEW (ANCA) Reviewed by Pavel Lincoln, Ph.D D(AARON) Normal [facility] Comment on above: Order Comment: Speci men Type: BLOOD SPECIMEN Ordering Facility: [facility] Address: [address] , [place] [address] Performed By: #### 6 969-0, ANCAC, 4485-9, 4498-2, DNAAB, ANCA #### [facility] CLIA [id number] [address] [address] [place] C3 SerPl-mCncon 08-23-2024 Complement C3 [Mass/Vol] 155 mg/dL Normal 86-166 [facility] Comment on above: Order Comment: Speci men Type: BLOOD SPECIMEN Ordering Facility: [facility] Address: [address] , [place] [address] Performed By: #### 6 969-0, ANCAC, 4485-9, 4498-2, DNAAB, ANCA #### [facility] CLIA [id number] [address] [address] [place] C4 SerPl-mCncon 08-23-2024 Complement C4 [Mass/Vol] 15 mg/dL Normal 13-46 [facility] Comment on above: Order Comment: Speci men Type: BLOOD SPECIMEN Ordering Facility: [facility] Address: [address] , [place] [address] Performed By: #### 6 969-0, ANCAC, 4485-9, 4498-2, DNAAB, ANCA #### [facility] CLIA [id number] [address] [address] [place] COMPLEMENT C3 [CCL]on 2024 C3 Complement 155 mg/dL Normal 86-166 [facility] Comment on above: Result Comment: [facility] [address] [id number] Gianni Terrazas III, M.D. [id number] Performed By: #### 2 05508 ####[facility],[address] [place] [address] COMPLEMENT C4 [CCL]on 2024 C4 Complement 15 mg/dL Normal 13-46 [facility] Comment on above: Result Comment: [facility] [address] [place] [address] Gianni Terrazas III, M.D. [id number] Performed By: #### 2 88396 #### [facility],[address] [place] [address] DNA ANTIBODY DS BLDon 2024 DNA ANTIBODY 7 IU/mL Normal <=200 [facility] Comment on above: Order Comment: Speci men Type: BLOOD SPECIMEN Ordering Facility: [facility] Address: [address] [place] [address] Result Comment: Nega tive: <200 IU/mL Equivocal: 201-300 IU/mL Moderate Positive: 301-800 IU/mL Strong Positive: >801 IU/mL Performed By: #### 6 969-0, ANCAC, 4485-9, 4498-2, DNAAB, ANCA #### [facility] CLIA [id number] [address] [place], [place] [address] [place] DNA ANTIBODY QUALITATIVE INTERPRETATION Negative Normal Negative [facility] Comment on above: Order Comment: Speci men Type: BLOOD SPECIMEN Ordering Facility: [facility] Address: [address] [place] [address] Performed By: #### 6 969-0, ANCAC, 4485-9, 4498-2, DNAAB, ANCA #### [facility] CLIA [id number] [address] [place], [place] [address] [place] EOSINOPHIL SMEARon EOSIN SMEAR No eosinophils seen. Normal No eosinophils seen. [facility] Comment on above: Order Comment: Speci men Type: URINE SPECIMEN Ordering Facility: [facility] Address: [address] [place] [address] Performed By: #### E OSSMR #### [facility] CLIA [id number] [address] [place] [address] [place] HEMOGLOBIN A1C (POM)on 08-23 Glucose [Mass/Vol] 116.9 mg/dL High 0.0 - 0.0 [facility] Comment on above: Result Comment: Do HEMOGLOBIN A1C REFERENCE RANGESBLDo Suggested Diagnosis HbA1c(%) HbA1C (mmol/mol Diabetic >/=6.5 >/=48 Prediabetes 5.7 - 6.4 39 - 47 Normal <5.7 <39 Performed By: #### 2 92036 ####[facility],[address] [place] [address] HbA1c (Bld) [Mass fraction] 5.7 % Normal 0.0 - 6.5 [facility] Comment on above: Performed By: #### 2 78177 ####[facility],[address] [place] [address] PROTEIN ELECTROPHORESIS SERU M (P)on 08-23-2024 Albumin [Mass/Vol] 4.72 g/dL Normal 3.43-5.41 [facility] Comment on above: Order Comment: Speci men Type: BLOOD SPECIMEN Ordering Facility: [facility] Address: [address] [place] [address] Performed By: #### L [id number] #### [facility] CLIA [id number] [address] [place] [address] [place] Alpha 1 globulin Elph [Mass/Vol] 0.22 g/dL Normal 0.18-0.43 [facility] Comment on above: Order Comment: Speci alexis Type: BLOOD SPECIMEN Ordering Facility: [facility] Address: [address] [place] [address] Performed By: #### L [id number] #### [facility] CLIA [id number] [address] [address] [place] Alpha 2 globulin Elph [Mass/Vol] 0.56 g/dL Normal 0.42-0.98 [facility] Comment on above: Order Comment: Speci men Type: BLOOD SPECIMEN Ordering Facility: [facility] Address: [address] [place] [address] Performed By: #### L [id number] #### [facility] CLIA [id number] [address] [place] [id number] [place] Beta globulin Elph [Mass/Vol] 0.89 g/dL Normal 0.61-1.17 [facility] Comment on above: Order Comment: Speci men Type: BLOOD SPECIMEN Ordering Facility: [facility] Address: [address] [place] [address] Performed By: #### L [id number] #### [facility] CLIA [id number] [address] [place], [place] [address] [place] Gamma globulin Elph [Mass/Vol] 1.11 g/dL Normal 0.53-1.51 [facility] Comment on above: Order Comment: Speci men Type: BLOOD SPECIMEN Ordering Facility: [facility] Address: [address] [place] [address] Performed By: #### L [id number] #### [facility] CLIA [id number] [address] [address] [place] M-PROTEIN LOCATION Normal [facility] Comment on above: Order Comment: Speci men Type: BLOOD SPECIMEN Ordering Facility: [facility] Address: [address] [place] [address] Result Comment: Not Applicable. Performed By: #### L [id number] #### [facility] CLIA [id number] [address] [place] [id number] [place] Protein Fractions [Interp] No definitive M protein is identified on protein electrophoresis. Normal No definitive M protein is identified on protein electrophores is. [facility] Comment on above: Order Comment: Speci men Type: BLOOD SPECIMEN Ordering Facility: [facility] Address: [address] [place] [address] Performed By: #### L [id number] #### [facility] CLIA [id number] [address] [place] [address] [place] Protein.monoclonal Elph [Mass/Vol] 0.00 g/dL Normal <=0.00 [facility] Comment on above: Order Comment: Speci men Type: BLOOD SPECIMEN Ordering Facility: [facility] Address: [address] [place] [address] Performed By: #### L [id number] #### [facility] CLIA [id number] [address] [place] [address] [place] SPE STAFF REVIEW Reviewed by David Peres MD, Ph.D ([id number]) Normal [facility] Comment on above: Order Comment: Speci men Type: BLOOD SPECIMEN Ordering Facility: [facility] Address: [address] [place] [address] Performed By: #### L [id number] #### [facility] CLIA [id number] [address] [place] [address] [place] Prot SerPl-mCncon 08-23-2024 Protein [Mass/Vol] 7.5 g/dL Normal 6.3-8.0 [facility] Comment on above: Order Comment: Speci men Type: BLOOD SPECIMEN Ordering Facility: [facility] Address: [address] [place] [address] Performed By: #### 2 885-2 #### [facility] CLIA [id number] [address] [place], [place] [address] [place] Prot/Creat Uron 08-23-2024 Protein/Creatinine (U) [Mass ratio] 0.09 mg/mg Normal <0.15 [facility] Comment on above: Order Comment: Inocencia men Type: URINE SPECIMEN Ordering Facility: [facility] Address: [address] [place] [address] Result Comment: Adul t Proteinuria Categories: <0.15 mg/mg is considered normal to mildly increased 0.15 - 0.50 mg/mg is considered moderately increased >0.50 mg/mg is considered severely increased KDIGO. (2013). KDIGO 2012 Clinical Practice Guideline for the Evaluation and Management of Chronic Kidney Disease. Official Journal of the International Society of Nephrology, 3(1), 1-150. Performed By: #### 2 890-2 #### [facility] CLIA [id number] [address] [place] [address] [place] Protein/Creatinine (U) [Mass ratio]on 08-23-2024 Creatinine (U) [Mass/Vol] 137.4 mg/dL Normal 20.0-300.0 [facility] Comment on above: Order Comment: Inocencia alexis Type: URINE SPECIMEN Ordering Facility: [facility] Address: [address] [place] [address] Performed By: #### 2 890-2 #### [facility] CLIA [id number] [address] [place] [address] [place] Protein (U) [Mass/Vol] 12 mg/dL Normal 0-20 [facility] Comment on above: Order Comment: Inocencia alexis Type: URINE SPECIMEN Ordering Facility: [facility] Address: [address] [place] [address] Performed By: #### 2 890-2 #### [facility] CLIA [id number] [address] [place] [address] [place] RENAL FUNCTION PANELon 08-23 Albumin [Mass/Vol] 4.1 g/dL Normal 3.4 - 5.0 [facility] Comment on above: Performed By: #### 2 29490 #### [facility],[address] [place] [address] B/C RATIO 12 ratio Normal 0 - 30 [facility] Comment on above: Performed By: #### 2 32094 #### [facility],[address] [place] [address] Calcium [Mass/Vol] 9.0 mg/dL Normal 8.5 - 10.1 [facility] Comment on above: Performed By: #### 2 28953 #### [facility],[address] [place] [address]892 Chloride [Moles/Vol] 106 mmol/L Normal 98 - 107 [facility] Comment on above: Performed By: #### 2 90333 #### [facility],[address] [place] [address]4699 CO2 [Moles/Vol] 23.9 mmol/L Normal 21.0 - 32.0 [facility] Comment on above: Performed By: #### 2 29693 #### [facility],[address] [place] [address]295 Creatinine [Mass/Vol] 0.95 mg/dL Normal 0.55 - 1.02 [facility] Comment on above: Performed By: #### 2 21392 #### [facility],[address] [place] [address]349 Glucose [Mass/Vol] 82 mg/dL Normal 74 - 106 [facility] Comment on above: Performed By: #### 2 18150 #### [facility],[address] [place] [address] 29124 Phosphate [Mass/Vol] 3.1 mg/dL Normal 2.6 - 4.7 [facility] Comment on above: Performed By: #### 2 61481 #### [facility],[address] [place] [address] 61382 Potassium [Moles/Vol] 4.3 mmol/L Normal 3.5 - 5.1 [facility] Comment on above: Performed By: #### 2 67255 #### [facility],[address] [place] [address] 88616 RENAL FUNCTION PANEL Normal [facility] Comment on above: Result Comment: AIDA L FUNCTION PANEL Performed By: #### 2 71875 #### [facility],[address] [place] [address] Sodium [Moles/Vol] 143 mmol/L Normal 136 - 145 [facility] Comment on above: Performed By: #### 2 86679 #### [facility],[address] [place] [address] Urea nitrogen [Mass/Vol] 11 mg/dL Normal 7 - 18 [facility] Comment on above: Performed By: #### 2 83196 #### [facility],[address] [place] [address] CBC + DIFFon 07-07-2024 Baso # 0.04 x10EE3/UL Normal 0.00 - 0.10 [facility] Comment on above: Performed By: #### 2 39378 #### [facility],[address] [place], [place] [address] Basophils/100 WBC (Bld) 0.5 % Normal 0.0 - 2.0 [facility] Comment on above: Performed By: #### 2 16102 #### [facility],[address] [place] [address] CBC + DIFF Normal [facility] Comment on above: Result Comment: CBC- COMPLETE BLOOD COUNT Performed By: #### 2 41232 #### [facility],[address] [place] [address] 16477 EO # 0.11 x10EE3/UL Normal 0.00 - 0.50 [facility] Comment on above: Performed By: #### 2 69192 #### [facility],[address] [place] [address] 21641 Eosinophils/100 WBC (Bld) 1.5 % Normal 0.0 - 7.0 [facility] Comment on above: Performed By: #### 2 30443 #### [facility],[address] [place], [place] [address] Erythrocyte distribution width (RBC) [Ratio] 14.2 % Normal 12.0 - 15.6 [facility] Comment on above: Performed By: #### 2 77994 #### [facility],[address] [place] [address] Hematocrit (Bld) [Volume fraction] 37.2 % Normal 34.0 - 46.0 [facility] Comment on above: Performed By: #### 2 36936 #### [facility],[address] [place] [address] Hemoglobin (Bld) [Mass/Vol] 12.2 g/dL Normal 12.0 - 16.0 [facility] Comment on above: Performed By: #### 2 74842 #### [facility],[address] [place] [address] Lymph # 1.89 x10EE3/UL Normal 0.80 - 2.80 [facility] Comment on above: Performed By: #### 2 52500 #### [facility],[address] [place], [place] [address] Lymphocytes/100 WBC (Bld) 24.1 % Normal 20.0 - 45.0 [facility] Comment on above: Performed By: #### 2 05729 #### [facility],[address] [place] [address] MANUAL DIFF N/A Normal [facility] Comment on above: Performed By: #### 2 95596 #### [facility],[address] [place], [place] [address] MCH (RBC) [Entitic mass] 29 pg Normal 27 - 33 [facility] Comment on above: Performed By: #### 2 63847 #### [facility],[address] [place], [place] [address] MCHC 33 X10 3 Normal 32 - 36 [facility] Comment on above: Performed By: #### 2 51733 #### [facility],[address] [place] [address] 31694 MCV (RBC) [Entitic vol] 90 fL Normal 80 - 99 [facility] Comment on above: Performed By: #### 2 77295 #### [facility],[address] [place] [address] 549[address] [place] # 0.72 x10EE3/UL Normal 0.20 - 1.00 [facility] Comment on above: Performed By: #### 2 86170 #### [facility],[address] [place] [address] 61585 MONOS % 9.1 % Normal 0.0 - 10.0 [facility] Comment on above: Performed By: #### 2 84587 #### [facility],[address] [place] [address] Morphology Nicho (Bld) [Interp] N/A Normal [facility] Comment on above: Performed By: #### 2 99662 #### [facility],[address] [place] [address] 21861 Neut # 5.09 x10EE3/UL Normal 1.50 - 7.10 [facility] Comment on above: Performed By: #### 2 78548 #### [facility],[address] [place] [address] 72059 Neutrophils/100 WBC (Bld) 64.8 % Normal 46.0 - 76.0 [facility] Comment on above: Performed By: #### 2 26067 #### [facility],[address] [place] [address] 13601 PLATELET 281 x10EE3/UL Normal 150 - 450 [facility] Comment on above: Performed By: #### 2 25931 #### [facility],[address] [place] [address] 19085 Platelet mean volume (Bld) [Entitic vol] 8.3 fL Normal 6.6 - 10.5 [facility] Comment on above: Result Comment: AUTO MATED DIFFERENTIAL Performed By: #### 2 43260 #### [facility],[address] [place] [address] 43861 RBC 4.16 x 10EE6/UL Normal 4.10 - 5.30 [facility] Comment on above: Performed By: #### 2 60609 #### [facility],[address] [place] [address] 50093 WBC 7.9 x 10EE3/UL Normal 4.5 - 10.8 [facility] Comment on above: Performed By: #### 2 08532 #### [facility],[address] [place] [address] 62490 CMP with eGFRon 07-07-2024 AGE 49 years Normal [facility] Comment on above: Performed By: #### 2 96680 #### [facility],[address] [place] [address]696 Albumin [Mass/Vol] 3.6 g/dL Normal 3.4 - 5.0 [facility] Comment on above: Performed By: #### 2 16900 #### [facility],[address] [place] [address] 01187 Albumin/Globulin [Mass ratio] 1.2 {ratio} Normal 0.9 - 1.6 [facility] Comment on above: Performed By: #### 2 87425 #### [facility],[address] [place] [address] 63826 ALK PHOS 55 U/L Normal 46 - 116 [facility] Comment on above: Performed By: #### 2 66530 #### [facility] [facility],[address] [place] [address] 71324 ALT [Catalytic activity/Vol] 39 U/L Normal 16 - 63 [facility] Comment on above: Performed By: #### 2 31707 #### [facility],[address] [place] [address] 66808 Anion gap [Moles/Vol] 12 mmol/L Normal 10 - 20 [facility] Comment on above: Performed By: #### 2 88904 #### [facility],[address] [place] [address] 43868 AST [Catalytic activity/Vol] 26 U/L Normal 13 - 39 [facility] Comment on above: Performed By: #### 2 77967 #### [facility],[address] [place] [address] 66100 B/C RATIO 8 ratio Normal 0 - 30 [facility] Comment on above: Performed By: #### 2 63880 #### [facility],[address] [place] [address] 23016 Bilirubin [Mass/Vol] 1.5 mg/dL High 0.2 - 1.0 [facility] Comment on above: Performed By: #### 2 43438 #### [facility],[address] [place] [address] 11322 Calcium [Mass/Vol] 8.6 mg/dL Normal 8.5 - 10.1 [facility] Comment on above: Performed By: #### 2 76620 #### [facility],[address] [place] [address] 72005 Chloride [Moles/Vol] 105 mmol/L Normal 98 - 107 [facility] Comment on above: Performed By: #### 2 83527 #### [facility],[address] [place] [address] 06747 CMP with eGFR Normal [facility] Comment on above: Result Comment: COMP REHENSIVE METABOLIC PANEL Performed By: #### 2 60988 #### [facility],[address] [place] [address] 68461 CO2 [Moles/Vol] 27.0 mmol/L Normal 21.0 - 32.0 [facility] Comment on above: Performed By: #### 2 41270 #### [facility],[address] [place] [address] 06394 Creatinine [Mass/Vol] 0.79 mg/dL Normal 0.55 - 1.02 [facility] Comment on above: Performed By: #### 2 22297 #### [facility],[address] [place] [address] 88469 GFR/1.73 sq M.predicted among non-blacks MDRD (S/P/Bld) [Vol rate/Area] mL/min/{1.73_m2} Normal 60 - 999 [facility] Comment on above: Performed By: #### 2 41478 #### [facility],[address] [place] [address] Result Comment: ACCO RDING TO THE NATIONAL KIDNEY DISEASE EDUCATION PROGRAM(NKDE), A NORMAL eGFR IS A VALUE GREATER THAN OR EQUAL TO 60 ML/MIN/1.73 SQ METERS. CHRONIC KIDNEY DISEASE: <60mL/MIN/1.73 SQ METERS KIDNEY FAILURE: <15mL/MIN/1.73 SQ METERS THIS TEST SHOULD ONLY BE USED FOR PATIENTS 18 YEARS OF AGE AND OLDER. Globulin (S) [Mass/Vol] 3.1 g/dL Normal 1.5 - 3.8 [facility] Comment on above: Performed By: #### 2 29309 #### [address] [address] Glucose [Mass/Vol] 103 mg/dL Normal 74 - 106 [facility] Comment on above: Performed By: #### 2 71557 #### [facility],[address] [place] [address] 40410 Potassium [Moles/Vol] 4.1 mmol/L Normal 3.5 - 5.1 [facility] Comment on above: Performed By: #### 2 98851 #### [address] [address] Protein [Mass/Vol] 6.7 g/dL Normal 6.4 - 8.2 [facility] Comment on above: Performed By: #### 2 69633 #### [address] [address]270 Sodium [Moles/Vol] 140 mmol/L Normal 136 - 145 [facility] Comment on above: Performed By: #### 2 72195 #### [facility],[address] [place] [address] Urea nitrogen [Mass/Vol] 6 mg/dL Low 7 - 18 [facility] Comment on above: Performed By: #### 2 83642 #### [facility],[address] [place] [address] CBC + DIFFon 06-25-2024 Baso # 0.01 x10EE3/UL Normal 0.00 - 0.10 [facility] Comment on above: Performed By: #### 2 67891 ####[facility],[address] [place] [address] 09070 Basophils/100 WBC (Bld) 0.2 % Normal 0.0 - 2.0 [facility] Comment on above: Performed By: #### 2 19025 ####[facility],[address] [place] [address] CBC + DIFF Normal [facility] Comment on above: Result Comment: CBC- COMPLETE BLOOD COUNT Performed By: #### 2 94496 ####[facility],[address] [place] [address] 51692 EO # 0.05 x10EE3/UL Normal 0.00 - 0.50 [facility] Comment on above: Performed By: #### 2 67616 ####[facility],[address] [place] [address] 76462 Eosinophils/100 WBC (Bld) 0.5 % Normal 0.0 - 7.0 [facility] Comment on above: Performed By: #### 2 98972 ####[facility],[address] [place] [address] 61076 Erythrocyte distribution width (RBC) [Ratio] 14.3 % Normal 12.0 - 15.6 [facility] Comment on above: Performed By: #### 2 62567 ####[facility],[address] [place] [address] 43649 Hematocrit (Bld) [Volume fraction] 40.4 % Normal 34.0 - 46.0 [facility] Comment on above: Performed By: #### 2 00175 ####[facility],[address] [place] [address] 51745 Hemoglobin (Bld) [Mass/Vol] 14.1 g/dL Normal 12.0 - 16.0 [facility] Comment on above: Performed By: #### 2 61791 ####[facility],[address] [place] [address] 69213 Lymph # 0.25 x10EE3/UL Low 0.80 - 2.80 [facility] Comment on above: Performed By: #### 2 20649 ####[facility],[address] [place], [place] [address] Lymphocytes/100 WBC (Bld) 2.6 % Low 20.0 - 45.0 [facility] Comment on above: Performed By: #### 2 74410 ####[facility],[address] [place] [address] 90651 MANUAL DIFF REVIEWED Normal [facility] Comment on above: Performed By: #### 2 53194 ####[facility],[address] [place] [address] 96544 MCH (RBC) [Entitic mass] 31 pg Normal 27 - 33 [facility] Comment on above: Performed By: #### 2 07885 ####[facility],[address] [place] [address] 60048 MCHC 35 X10 3 Normal 32 - 36 [facility] Comment on above: Performed By: #### 2 71503 ####[facility],[address] [place] [address] 61105 MCV (RBC) [Entitic vol] 89 fL Normal 80 - 99 [facility] Comment on above: Performed By: #### 2 95195 ####[facility],[address] [place] [address] 92132 [place] # 0.26 x10EE3/UL Normal 0.20 - 1.00 [facility] Comment on above: Performed By: #### 2 58475 ####[facility],[address] [place] [address] 87283 MONOS % 2.7 % Normal 0.0 - 10.0 [facility] Comment on above: Performed By: #### 2 07927 ####[facility],[address] [place] [address] 37482 Morphology Nicho (Bld) [Interp] N/A Normal [facility] Comment on above: Performed By: #### 2 89221 ####[facility],[address] [place] [address] 02397 Neut # 9.02 x10EE3/UL High 1.50 - 7.10 [facility] Comment on above: Performed By: #### 2 02168 ####[facility],[address] [place] [address] 46279 Neutrophils/100 WBC (Bld) 94.1 % High 46.0 - 76.0 [facility] Comment on above: Performed By: #### 2 33996 ####[facility],[address] [place] [address] 71859 PLATELET 209 x10EE3/UL Normal 150 - 450 [facility] Comment on above: Performed By: #### 2 82875 ####[facility],[address] [place] [address] 56811 Platelet mean volume (Bld) [Entitic vol] 8.1 fL Normal 6.6 - 10.5 [facility] Comment on above: Result Comment: AUTO MATED DIFFERENTIAL Performed By: #### 2 37800 ####[facility],[address] [place] [address] 88047 RBC 4.56 x 10EE6/UL Normal 4.10 - 5.30 [facility] Comment on above: Performed By: #### 2 93120 ####[facility],[address] [place] [address] 95481 WBC 9.6 x 10EE3/UL Normal 4.5 - 10.8 [facility] Comment on above: Performed By: #### 2 33243 ####[facility],[address] [place] [address] 23524 CMP with eGFRon 06-25-2024 AGE 49 years Normal [facility] Comment on above: Performed By: #### 2 77168 ####[facility],[address] [place] [address] 23514 Albumin [Mass/Vol] 4.0 g/dL Normal 3.4 - 5.0 [facility] Comment on above: Performed By: #### 2 79565 ####[facility],[address] [place], [place] [address] Albumin/Globulin [Mass ratio] 1.1 {ratio} Normal 0.9 - 1.6 [facility] Comment on above: Performed By: #### 2 97995 ####[facility],[address] [place] [address] 00470 ALK PHOS 66 U/L Normal 46 - 116 [facility] Comment on above: Performed By: #### 2 42198 ####[facility],[address] [place] [address] 18258 ALT [Catalytic activity/Vol] 25 U/L Normal 16 - 63 [facility] Comment on above: Performed By: #### 2 41924 ####[facility],[address] [place] [address] 83486 Anion gap [Moles/Vol] 14 mmol/L Normal 10 - 20 [facility] Comment on above: Performed By: #### 2 15231 ####[facility],[address] [place] [address] 29597 AST [Catalytic activity/Vol] 18 U/L Normal 13 - 39 [facility] Comment on above: Performed By: #### 2 90369 ####[facility],[address] [place] [address] 39600 B/C RATIO 11 ratio Normal 0 - 30 [facility] Comment on above: Performed By: #### 2 48864 ####[facility],[address] [place] [address] 23444 Bilirubin [Mass/Vol] 2.0 mg/dL High 0.2 - 1.0 [facility] Comment on above: Performed By: #### 2 27837 ####[facility],[address] [place] [address] 76836 Calcium [Mass/Vol] 9.2 mg/dL Normal 8.5 - 10.1 [facility] Comment on above: Performed By: #### 2 15573 ####[facility],[address] [place] [address] 22824 Chloride [Moles/Vol] 102 mmol/L Normal 98 - 107 [facility] Comment on above: Performed By: #### 2 91040 ####[facility],[address] [place] [address] 33204 CMP with eGFR Normal [facility] Comment on above: Result Comment: COMP REHENSIVE METABOLIC PANEL Performed By: #### 2 05926 ####[facility],[address] [place] [address] 93127 CO2 [Moles/Vol] 25.1 mmol/L Normal 21.0 - 32.0 [facility] Comment on above: Performed By: #### 2 05815 ####[facility],[address] [place] [address] 93605 Creatinine [Mass/Vol] 1.23 mg/dL High 0.55 - 1.02 [facility] Comment on above: Performed By: #### 2 34216 ####[facility],[address] [place] [address] 86237 eGFR 47 ML/MINUTE Low 60 - 999 [facility] Comment on above: Performed By: #### 2 20428 ####[facility],[address] [place] [address] 92293 eGFR(AA) 56 ML/MINUTE Low 60 - 999 [facility] Comment on above: Result Comment: ACCO RDING TO THE NATIONAL KIDNEY DISEASE EDUCATION PROGRAM(NKDE), A NORMAL eGFR IS A VALUE GREATER THAN OR EQUAL TO 60 ML/MIN/1.73 SQ METERS. CHRONIC KIDNEY DISEASE: <60mL/MIN/1.73 SQ METERS KIDNEY FAILURE: <15mL/MIN/1.73 SQ METERS THIS TEST SHOULD ONLY BE USED FOR PATIENTS 18 YEARS OF AGE AND OLDER. Performed By: #### 2 00905 ####[facility],[address] [place] [address] 09157 Globulin (S) [Mass/Vol] 3.6 g/dL Normal 1.5 - 3.8 [facility] Comment on above: Performed By: #### 2 12208 ####[facility],[address] [place] [address] 32753 Glucose [Mass/Vol] 106 mg/dL Normal 74 - 106 [facility] Comment on above: Performed By: #### 2 43321 ####[facility],[address] [place] [address] 27599 Potassium [Moles/Vol] 3.7 mmol/L Normal 3.5 - 5.1 [facility] Comment on above: Performed By: #### 2 55568 ####[facility],[address] [place] [address] 30334 Protein [Mass/Vol] 7.6 g/dL Normal 6.4 - 8.2 [facility] Comment on above: Performed By: #### 2 71498 ####[facility],[address] [place] [address] 97788 Sodium [Moles/Vol] 137 mmol/L Normal 136 - 145 [facility] Comment on above: Performed By: #### 2 44573 ####[facility],[address] [place] [address] 68333 Urea nitrogen [Mass/Vol] 13 mg/dL Normal 7 - 18 [facility] Comment on above: Performed By: #### 2 54590 ####[facility],[address] [place] [address] 67544 ED MED ADMINISTRATION DETAIL on 06-25-2024 ED MED ADMINISTRATION DETAIL C2 Tactical Analysis Technician Medication Administration Record [address] [place] [address] [id number] 06/25/2024 Patient: ANANTH DAVENPORT Sex: Female : 1975 Age: 49y MEASUREMENTS: Wt: 59.0 kg, Ht/Yfn: 60.0 in, BMI: 25.39 ALLERGIES: No known drug allergies Medication Ordered Medication Administration Date/Time Zofran IVP 4 mg 17:06/25 Zofran IVP 4 mg given via Site# 1. Allergies verified Given (NOW x1) and confirmed 5 rights. IV patency established. IV site checked: no 17:06/25/2024 pain, redness, or swelling. IV flushed thoroughly pre-medication Rocio Martinez R.N. administration. IVP given by nurse. Information reviewed with Scanned patient including reason for taking this medication. - 17:30 Jordan McleodN. IV NS 0.9 % 1000 17:06/25 IV NS 0.9 % 1000 mL started in bag#1 1000 mL at Started mL at 999 mL/hr 999 mL/hr via Site# 1. Allergies verified and confirmed 5 rights. Via 17:06/25/2024 (NOW x1) IV pump. IV patency established. IV site checked: no pain, redness, Rocio Martinez RTonyN. or swelling. IV flushed thoroughly pre-medication administration. Stopped Information reviewed with patient including reason for taking this 18:06/25/2024 medication. - 17:25 Rocio Martinez R.N. Rocio Martinez R.N. Scanned 18:06/25 Medication Discontinued: bag #1 infused. Total amount infused: 1000 mL. IV patency established. IV site checked: no pain, redness, or swelling. IV flushed thoroughly post-medication administration. - 19:29 Rocio Martinez R.N. 1 of 1 Normal [facility] ED NURSES CLINICAL NOTEon ED NURSES CLINICAL NOTE Nurse Narrative Nurse Clinical Narrative [facility] [address] [place] [address] [phone] 06/25/2024 Patient: ANANTH DAVENPORT Sex: Female : 1975 Age: 49y Disposition: Discharge to Home Disposition Decision Time: 18:26 06/25/2024 Departure Time: 18:58 06/25/2024 TRIAGE Arrived by private vehicle. Historian: patient. Triage time: 16:35 06/25/2024. Acuity: LEVEL 3. Chief Complaint: VOMITING and DIARRHEA and CHILLS. This started today. -- 16:39 06/25/24 SAMM Morfin R.N. 16:45 06/25/24. BP: 102/68 MAP: 79. HR: 83. RR: 17. O2 saturation: 99% Temperature: 100.2 F. Pain level now 1/10. Describes the pain as (cramping). -- 16:46 06/25/24 SAMM Morfin R.N. 16:46 06/25/24. SEPSIS SCREEN: NEGATIVE. SIRS criteria negative. No possible sources of infection. -- 16:46 06/25/24 SAMM Morfin R.N. Measurements: 16:39 06/25/24 Wt: 59.0 kg, Ht/Yfn: 60.0 in, BMI: 25.39 -- 16:39 06/25/24 SAMM Morfin R.N. Medications: methotrexate sodium 2.5 mg tablet: 8 tablet once a week. (on Sundays) -- 16:44 06/25/24 SAMM Morfin R.N. levothyroxine 75 mcg tablet: 1 tablet once a day. -- 16:44 06/25/24 SAMM Morfin R.N. 1 of 4 Nurse Narrative hydroxychloroquine 200 mg tablet: 1 1/2 tablet once a day. -- 16:44 06/25/24 SAMM Morfin R.N. folic acid 1 mg tablet: 2 tablet once a day. -- 16:44 06/25/24 SAMM Morfin R.N. ergocalciferol (vitamin D2) 1,250 mcg (50,000 unit) capsule: 1 capsule once a day. (on Wednesday) -- 16:44 06/25/24 SAMM Morfin R.N. azelastine 137 mcg (0.1 %) nasal spray: (pt states no longer takes) -- 16:44 06/25/24 SAMM Morfin R.N. prednisone 10 mg tablet: 1 tablet as directed. (as needed) -- 16:44 06/25/24 SAMM Morfin R.N. lansoprazole 30 mg capsule,delayed release: TAKE 1 CAPSULE BY MOUTH TWICE DAILY -- 16:44 06/25/24 SAMM Mrofin R.N. Allergies: no known drug allergies -- 16:36 06/25/24 SAMM Morfin R.N. Home Medications/Allergy Information Source: patient -- 16:36 06/25/24 SAMM Morfin R.N. Problems: aortic regurgitation -- 16:37 06/25/24 SAMM Morfin R.N. ADDITIONAL SURGERIES: Kidney removal -- 16:38 06/25/24 SAMM Morfin R.N. Cholecystectomy -- 16:38 06/25/24 SAMM Morfin R.N. Tubal Ligation -- 16:38 06/25/24 SAMM Morfin R.N. History 16:35 06/25/24. SOCIAL HX: Never smoker. No alcohol use or drug use. The patient has not traveled outside the [place] Infectious disease exposure: No infectious disease exposure. ABUSE ASSESSMENT: The patient answered yes to the question(s) Do you feel safe in your home? and no to the question(s) Are you afraid to go home?. Abuse denied. No suspicion of abuse. SELF HARM ASSESSMENT: Self harm assessment was performed. The patient answered no to the question(s) Have you recently felt down, depressed, or hopeless? and Do you have thoughts of harming or killing yourself?. 2 of 4 Nurse Narrative FALL RISK ASSESSMENT: Fall risk assessment completed. No risk factors identified. -- 16:39 06/25/24 SAMM Morfin R.N. 16:46 06/25/24. PAST MEDICAL HX: Last normal menstrual period- 1 weeks ago. Denies current . -- 16:46 06/25/24 SAMM Morfin R.N. Interventions 16:35 06/25/24. Advanced care plan (Full Code). -- 16:39 06/25/24 SAMM Morfin R.N. PHYSICAL ASSESSMENT 16:57 06/25/24. Ambulatory to room. ( Pt woke up this morning with vomiting and diarrhea. Sudden onset. Pt denies any resp issues or cough.). GENERAL / NEURO / PSYCH: Alert. Oriented X 4. HEENT: Mucous membranes are pink. RESPIRATORY: Respirations not labored. Breath sounds within normal limits. GI / : The patient has had nausea. Bilious emesis noted. Has vomited numerous times. The patient has diarrhea. This has occurred several times. SKIN: Skin is warm and dry. -- 17:22 06/25/24 SAMM Martinez R.N. NURSING PROGRESS NOTES 15:35 06/25/24. ED physician at the patient's bedside (16:35 06/25/2024). -- 16:35 06/25/24 SAMM Morfin R.N. 16:04 06/25/24. ( pt ambulates to ER doors and states that she feels like she is going to pass out, baot called at this to obtain an EKG). -- 16:07 06/25/24 SAMM Morfin R.N. 17:24 06/25/24. IV NS 0.9 % 1000 mL started in bag#1 1000 mL at 999 mL/hr via Site# 1. Allergies verified and confirmed 5 rights. Via IV pump. IV patency established. IV site checked: no pain, redness, or swelling. IV flushed thoroughly pre-medication administration. Information reviewed with patient including reason for taking this medication. -- 17:25 06/25/24 SAMM Martinez R.N. 17:25 06/25/24. Zofran IVP 4 mg given via Site# 1. Allergies verified and confirmed 5 rights. IV patency established. IV site checked: no pain, redness, or swelling. IV flushed thoroughly pre-medication (more content not included)... Normal [facility] ED ORDER SHEET (CPOE ONLY)on 06-25-2024 ED ORDER SHEET (CPOE ONLY) Order Sheet Order Sheet [id number] [place] [address] [id number] 06/25/2024 Patient: ANANTH DAVENPORT Sex: Female : 1975 Age: 49y MEASUREMENTS: Wt: 59.0 kg, Ht/Yfn: 60.0 in, BMI: 25.39 ALLERGIES: No known drug allergies MEDICATION/IV/DRIP/F LUID ORDERS Order Description Priority Entered Acknowledged Completed Zofran IVP4 mg (NOW x1) 16:37 06/25/2024 16:56 17:30 Raymond Rendon, 06/25/2024 06/25/2024 Rocio Alvarez, R.N. R.N. IV NS 0.9 %1000 mL at 999 16:37 06/25/2024 16:56 17:25 mL/hr (NOW x1) Raymond Rendon, 06/25/2024 06/25/2024 Rocio Alvarez R.N. R.N. LAB ORDERS Order Description Priority Entered Acknowledged Collected Completed EKG - ED Stat Stat 16:08 06/25/2024 16:08 06/25/2024 19:29 06/25/2024 Tawana Tompkins Natalie Yoder, R.N. R.N. R.N. Per Protocol, Auth by: Raymond Rendon D.O. 1 of 3 Order Sheet CBC w Diff Stat Stat 16:37 06/25/2024 16:55 06/25/2024 19:29 06/25/2024 Rocio Grande Lemasters, D.O. R.N. R.N. CMP Stat Stat 16:37 06/25/2024 16:55 06/25/2024 19:29 06/25/2024 Rocio Grande Lemasters, D.O. R.N. R.N. Lipase Stat Stat 16:37 06/25/2024 16:55 06/25/2024 19:29 06/25/2024 Rocio Grande Lemasters, D.O. R.NTony RSarina Urinalysis Stat Stat 16:37 06/25/2024 16:55 06/25/2024 19:29 06/25/2024 Rocio Grande Lemasters, D.O. R.N. RTonyNTony EKG - ED Stat Stat 16:37 06/25/2024 16:55 06/25/2024 19:29 06/25/2024 Rocio Grande Lemasters, D.O. R.N. RSarina DIAGNOSTIC STUDY ORDERS Order Description Priority Entered Acknowledged Completed STAFF ORDERS Order Description Priority Entered Acknowledged Collected Completed IV Saline Lock 16:37 06/25/2024 16:55 06/25/2024 19:29 06/25/2024 Rocio Grande Lemasters, D.O. R.N. RTonyNTony 2 of 3 Order Sheet [Electronically signed by Raymond Rendon D.O. (06/25/2024 18:27 EST)] 3 of 3 Normal [facility] ED PHYSICIAN CLINICAL REPORT on 06-25-2024 ED PHYSICIAN CLINICAL REPORT Narrative Physician Clinical Narrative [address] [address] [id number] 06/25/2024 Patient: ANANTH DAVENPORT Sex: Female : 1975 Age: 49y Disposition: Discharge Disposition Decision Time: 18:26 06/25/2024 Measurements Wt: 59.0 kg, Ht/Yfn: 60.0 in, BMI: 25.39 Initial Vital Sign Measured Time BP MAP HR RR O2Sat ETCO2 Temp Pain GCS RTS 16:45 06/25/2024 102/68 79 83 17 99% 100.2 F 1 Time Seen: 16:32 06/25/2024. Arrived- By private vehicle. Historian- patient. HISTORY OF PRESENT ILLNESS Chief Complaint: VOMITING and DIARRHEA. This started today. (Patient awoke this morning with some abdominal cramping. States that she has had multiple episodes of vomiting and diarrhea since that time. It has been unable to keep anything down. Hot and cold. Denies any continued abdominal pain or urinary symptoms. Patient has been feeling very dizzy and lightheaded.). PAST HISTORY History of nephrectomy. aortic regurgitation Surgeries: 1 of 9 Narrative Cholecystectomy Kidney removal Tubal Ligation Medications: azelastine 137 mcg (0.1 %) nasal spray: (pt states no longer takes) ergocalciferol (vitamin D2) 1,250 mcg (50,000 unit) capsule: 1 capsule once a day. (on Wednesday) folic acid 1 mg tablet: 2 tablet once a day. hydroxychloroquine 200 mg tablet: 1 1/2 tablet once a day. lansoprazole 30 mg capsule,delayed release: TAKE 1 CAPSULE BY MOUTH TWICE DAILY levothyroxine 75 mcg tablet: 1 tablet once a day. methotrexate sodium 2.5 mg tablet: 8 tablet once a week. (on Sundays) prednisone 10 mg tablet: 1 tablet as directed. (as needed) Allergies: no known drug allergies Home Medications/Allergy Information Source: patient - Tawana Morfin R.N., 06/25/2024 16:36 EST SOCIAL HISTORY No alcohol use or drug use. ADDITIONAL NOTES The nursing notes have been reviewed. PHYSICAL EXAM Vital Signs: Have been reviewed. Appearance: Alert. No acute distress. Eyes: Pupils equal, round and reactive to light. Eyes normal inspection. ENT: Pharynx normal. Neck: Normal inspection. Neck supple. CVS: Normal heart rate and rhythm. Heart sounds normal. Pulses normal. Respiratory: No respiratory distress. Breath sounds normal. Abdomen: Soft and nontender. 2 of 9 Narrative Skin: Skin warm and dry. Normal skin color. Extremities: No lower extremity edema. LABS, X-RAYS, AND EKG 12-LEAD EKG: EKG time: 16:18 06/25/2024. Normal sinus rhythm. Rate: 86. Normal P waves. Normal QRS complex. Normal QTc. Non-specific ST segment / T wave abnormalities. The study has been interpreted contemporaneously by me. Interpretation time: 16:20 06/25/2024. Laboratory Tests: CBC + DIFF Final AKILA: 06/25/2024 17:06:00 EST MsgRcvd: 06/25/2024 17:48 EST Lab Test Result Reference Status Received Comments 06/25/2024 17:48 CBC-COMPLETE CBC + DIFF Final EST BLOOD COUNT 06/25/2024 17:48 WBC 9.6 x 10/UL 4.5 - 10.8 Final EST 06/25/2024 17:48 RBC 4.56 x 10/UL 4.10 - 5.30 Final EST 06/25/2024 17:48 HEMOGLOBIN 14.1 g/dl 12.0 - 16.0 Final EST 06/25/2024 17:48 HEMATOCRIT 40.4 % 34.0 - 46.0 Final EST 06/25/2024 17:48 MCV 89 fl 80 - 99 Final EST 06/25/2024 17:48 MCH 31 pg 27 - 33 Final EST 06/25/2024 17:48 MCHC 35 X10 3 32 - 36 Final EST 3 of 9 Narrative 06/25/2024 17:48 RDW/CV 14.3 % 12.0 - 15.6 Final EST 06/25/2024 17:48 PLATELET 209 x10/UL 150 - 450 Final EST 06/25/2024 17:48 AUTOMATED MPV 8.1 fl 6.6 - 10.5 Final EST DIFFERENTIAL 94.1 % 06/25/2024 17:48 NEUT % 46.0 - 76.0 Final Above high normal EST 2.6 % 06/25/2024 17:48 LYMPH % 20.0 - 45.0 Final Below low normal EST 06/25/2024 17:48 MONOS % 2.7 % 0.0 - 10.0 Final EST 06/25/2024 17:48 EO % 0.5 % 0.0 - 7.0 Final EST 06/25/2024 17:48 BASO % 0.2 % 0.0 - 2.0 Final EST 0.25 x10/UL 06/25/2024 17:48 Lymph # 0.80 - 2.80 Final Below low normal EST 9.02 x10/UL 06/25/2024 17:48 Neut # 1.50 - 7.10 Final Above high normal EST 06/25/2024 17:48 [place] # 0.26 x10/UL 0.20 - 1.00 Final EST 06/25/2024 17:48 EO # 0.05 x10/UL 0.00 - 0.50 Final EST 06/25/2024 17:48 Baso # 0.01 x10/UL 0.00 - 0.10 Final EST 06/25/2024 17:48 MANUAL DIFF REVIEWED Final EST 4 of 9 Narrative 06/25/2024 17:48 MORPHOLOGY N/A New Order EST CMP with eGFR Final AKILA: 06/25/2024 17:06:00 EST MsgRcvd: 06/25/2024 17:46 EST Lab Test Result Reference Status Received Comments COMPREHENSIVE 06/25/2024 CMP with eGFR Final METABOLIC 17:46 EST PANEL 06/25/2024 SODIUM 137 mmol/l 136 - 145 Final 17:46 EST 06/25/2024 POTASSIUM 3.7 mmol/L 3.5 - 5.1 Final 17:46 EST 06/25/2024 CHLORIDE 102 mmol/L 98 - 107 Final 17:46 EST 06/25/2024 CO2 25.1 mmol/L 21.0 - 32.0 Final 1 (more content not included)... Normal [facility] ED SUPER BILLon 06-25-2024 ED SUPER BILL [address] [address] [id number] 06/25/2024 Patient: ANANTH DAVENPORT Sex: Female : 1975 Age: 49y Item Facility Professional Category Description Code Code Quantity Fee Total Nurse/E/M EMERGENCY 814838 1 $0.00 $0.00 DEPARTMENT VISIT HIGH/URGENT SEVERITY (71376-50) Nurse/IV/IM/Infusion s Hydration 239904 1 $0.00 $0.00 additional hour (04897) Nurse/IV/IM/Infusion s IVP initial 544098 1 $0.00 $0.00 (47801) Grand Total $0.00 Providers Raymond Rendon D.O. Chief Complaint VOMITING and DIARRHEA. 1 of 2 [facility] Principal Diagnosis Gastroenteritis. ICD-10 Codes K52.9: Noninfective gastroenteritis and colitis, unspecified 2 of 2 Normal [facility] ED VISIT SUMMARYon ED VISIT SUMMARY Visit Overview Visit Overview [address] [address] [id number] 06/25/2024 Patient: ANANTH DAVENPORT Sex: Female : 1975 Age: 49y 06/25/2024 07:33 PM EST ED Arrival:15:40 06/25/2024 EST Status:not Recent Travel:no Language:eng Adv Directive: Isolation Status: Ethnicity:N Fall Risk:no risk Infectious Disease Exposure:no Measurements:5' / 152.4 Self-Harm Status:risk Sepsis Screen:negative cm 130.0 lb / 59.0 kg Chief Complaint:CHILLS, DIARRHEA, and VOMITING ALLERGIES No Known Drug Allergies HOME MEDICATIONS azelastine 137 mcg (0.1 %) nasal spray: (pt states no longer takes) ergocalciferol (vitamin D2) 1,250 mcg (50,000 unit) capsule: 1 capsule once a day. (on Wednesday) folic acid 1 mg tablet: 2 tablet once a day. hydroxychloroquine 200 mg tablet: 1 1/2 tablet once a day. lansoprazole 30 mg capsule,delayed release: TAKE 1 CAPSULE BY MOUTH TWICE DAILY levothyroxine 75 mcg tablet: 1 tablet once a day. methotrexate sodium 2.5 mg tablet: 8 tablet once a week. (on Sundays) 1 of 3 Visit Overview prednisone 10 mg tablet: 1 tablet as directed. (as needed) PAST MEDICAL HISTORY / PROBLEMS aortic regurgitation Last normal menstrual period- 1 weeks ago PAST SURGICAL HISTORY Cholecystectomy Kidney removal Tubal Ligation SOCIAL HISTORY Smoking status: No Alcohol use: No Drug use: No ED COURSE MEDICATIONS GIVEN IN EMERGENCY DEPARTMENT 17:24 06/25/24 IV NS 0.9 % 1000 mL 999 mL/hr 17:25 06/25/24 Zofran IVP 4 mg IV SITE INFORMATION INTAKE OUTPUT REASSESMENT (most recent) 16:57 06/25/24. Ambulatory to room. ( Pt woke up this morning with vomiting and diarrhea. Sudden onset. Pt denies any resp issues or cough.). GENERAL / NEURO / PSYCH: Alert. Oriented X 4. HEENT: Mucous membranes are pink. RESPIRATORY: Respirations not labored. Breath sounds within normal limits. GI / : The patient has had nausea. Bilious emesis noted. Has vomited numerous times. The patient has diarrhea. This has occurred several times. SKIN: Skin is warm and dry. 2 of 3 Visit Overview VITAL SIGNS First Vitals Last Vitals Temp 16:45 06/25/24 100.2 F Temp 18:55 06/25/24 BP 16:45 06/25/24 102/68 BP 18:55 06/25/24 125/63 HR 16:45 06/25/24 83 HR 18:55 06/25/24 83 RR 16:45 06/25/24 17 RR 18:55 06/25/24 18 O2 Sat 16:45 06/25/24 99% O2 Sat 18:55 06/25/24 98% Pain 16:45 06/25/24 1 Pain 18:55 06/25/24 ETCO2 16:45 06/25/24 ETCO2 18:55 06/25/24 GCS 16:45 06/25/24 GCS 18:55 06/25/24 RTS 16:45 06/25/24 RTS 18:55 06/25/24 PROCEDURES NURSING INTERVENTIONS LABS / STUDIES LABS / STUDIES ORDERED CBC w Diff CMP EKG - ED EKG - ED Lipase Urinalysis CLINICAL IMPRESSION GASTROENTERITIS 3 of 3 Normal [facility] ED VITALS FLOW SHEETon 06-25 ED VITALS FLOW SHEET Vitals Vital Sign Flow Sheet [address] [place] [address] [id number] 06/25/2024 [id number] Sex[facility] Female : 1975 Age: 49y Measurements Wt: 59.0 kg, Ht/Yfn: 60.0 in, BMI: 25.39 Measured Time BP MAP HR RR O2Sat ETCO2 Temp Pain GCS RTS 18:55 06/25/2024 125/63 84 83 18 98% 16:45 06/25/2024 102/68 79 83 17 99% 100.2 F 1 1 of 1 Normal [facility] LIPASEon 06-25-2024 Lipase [Catalytic activity/Vol] 22.0 U/L Normal 15.0 - 78.0 [facility] Comment on above: Result Comment: *PLE ASE NOTE THAT RANGES FOR LIPASE HAVE CHANGED OF 06/25/23 DUE TO AN ASSAY UPDATE BY THE SCHOOL COMMUNITY RELATIONS COORDINATOR.THE NEW ASSAY RANGE IS 6-250 U/L, WITH A REFERENCE RANGE OF 16-77 U/L. Performed By: #### 2 [id number] ####[facility],[address] [place] [address]274 CMP with eGFRon 06-06-2024 AGE 49 years Normal [facility] Comment on above: Performed By: #### 2 96786 ####[facility],[address] [place] [address] 70018 Albumin [Mass/Vol] 3.6 g/dL Normal 3.4 - 5.0 [facility] Comment on above: Performed By: #### 2 57594 ####[facility],[address] [place] [address] 24747 Albumin/Globulin [Mass ratio] 1.1 {ratio} Normal 0.9 - 1.6 [facility] Comment on above: Performed By: #### 2 74736 ####[facility],[address] [place] [address] 94619 ALK PHOS 51 U/L Normal 46 - 116 [facility] Comment on above: Performed By: #### 2 78822 ####[facility],[address] [place] [address] 51557 ALT [Catalytic activity/Vol] 21 U/L Normal 16 - 63 [facility] Comment on above: Performed By: #### 2 31605 ####[facility],[address] [place] [address] 66769 Anion gap [Moles/Vol] 13 mmol/L Normal 10 - 20 [facility] Comment on above: Performed By: #### 2 98585 ####[facility],[address] [place] [address] 81874 AST [Catalytic activity/Vol] 10 U/L Low 13 - 39 [facility] Comment on above: Performed By: #### 2 16968 ####[facility],[address] [place] [address] 52782 B/C RATIO 9 ratio Normal 0 - 30 [facility] Comment on above: Performed By: #### 2 54191 ####[facility],[address] [place] [address] 71977 Bilirubin [Mass/Vol] 0.7 mg/dL Normal 0.2 - 1.0 [facility] Comment on above: Performed By: #### 2 37711 ####[facility],[address] [place] [address] 18048 Calcium [Mass/Vol] 8.7 mg/dL Normal 8.5 - 10.1 [facility] Comment on above: Performed By: #### 2 23294 ####[facility],[address] [place] [address] 21378 Chloride [Moles/Vol] 105 mmol/L Normal 98 - 107 [facility] Comment on above: Performed By: #### 2 81091 ####[facility],[address] [place] [address] 62480 CMP with eGFR Normal [facility] Comment on above: Result Comment: COMP REHENSIVE METABOLIC PANEL Performed By: #### 2 15687 ####[facility],[address] [place] [address] 19929 CO2 [Moles/Vol] 27.1 mmol/L Normal 21.0 - 32.0 [facility] Comment on above: Performed By: #### 2 91672 ####[facility],[address] [place] [address] 90051 Creatinine [Mass/Vol] 1.10 mg/dL High 0.55 - 1.02 [facility] Comment on above: Performed By: #### 2 78505 ####[facility],[address] [place] [address] 72338 eGFR 53 ML/MINUTE Low 60 - 999 [facility] Comment on above: Performed By: #### 2 13798 ####[facility],[address] [place] [address] 85582 GFR/1.73 sq M.predicted among non-blacks MDRD (S/P/Bld) [Vol rate/Area] mL/min/{1.73_m2} Normal 60 - 999 [facility] Comment on above: Result Comment: ACCO RDING TO THE NATIONAL KIDNEY DISEASE EDUCATION PROGRAM(NKDE), A NORMAL eGFR IS A VALUE GREATER THAN OR EQUAL TO 60 ML/MIN/1.73 SQ METERS. CHRONIC KIDNEY DISEASE: <60mL/MIN/1.73 SQ METERS KIDNEY FAILURE: <15mL/MIN/1.73 SQ METERS THIS TEST SHOULD ONLY BE USED FOR PATIENTS 18 YEARS OF AGE AND OLDER. Performed By: #### 2 44410 ####[address] [address] Globulin (S) [Mass/Vol] 3.3 g/dL Normal 1.5 - 3.8 [facility] Comment on above: Performed By: #### 2 50670 ####[address] [address] Glucose [Mass/Vol] 74 mg/dL Normal 74 - 106 [facility] Comment on above: Performed By: #### 2 77972 ####[address] [address] Potassium [Moles/Vol] 3.7 mmol/L Normal 3.5 - 5.1 [facility] Comment on above: Performed By: #### 2 39955 ####[facility],[address] [place] [address] 94570 Protein [Mass/Vol] 6.9 g/dL Normal 6.4 - 8.2 [facility] Comment on above: Performed By: #### 2 56148 ####[address] [address] Sodium [Moles/Vol] 141 mmol/L Normal 136 - 145 [facility] Comment on above: Performed By: #### 2 50089 ####[address] [address] Urea nitrogen [Mass/Vol] 10 mg/dL Normal 7 - 18 [facility] Comment on above: Performed By: #### 2 93969 ####[facility],[address] [place] [address]33 CMP with eGFRon 05-19-2024 AGE 49 years Normal [facility] Comment on above: Performed By: #### 2 91590 #### [facility],[address] [place], [place] [address] Albumin [Mass/Vol] 3.5 g/dL Normal 3.4 - 5.0 [facility] Comment on above: Performed By: #### 2 11939 #### [facility],[address] [place] [address] Albumin/Globulin [Mass ratio] 1.1 {ratio} Normal 0.9 - 1.6 [facility] Comment on above: Performed By: #### 2 24847 #### [facility],[address] [place] [address] 59918 ALK PHOS 57 U/L Normal 46 - 116 [facility] Comment on above: Performed By: #### 2 86589 #### [facility],[address] [place] [address] 44711 ALT [Catalytic activity/Vol] 19 U/L Normal 16 - 63 [facility] Comment on above: Performed By: #### 2 56476 #### [facility],[address] [place] [address] 02279 Anion gap [Moles/Vol] 12 mmol/L Normal 10 - 20 [facility] Comment on above: Performed By: #### 2 21308 #### [facility],[address] [place] [address] 73285 AST [Catalytic activity/Vol] 16 U/L Normal 13 - 39 [facility] Comment on above: Performed By: #### 2 47654 #### [facility],[address] [place] [address] 90004 B/C RATIO 10 ratio Normal 0 - 30 [facility] Comment on above: Performed By: #### 2 02454 #### [facility],[address] [place] [address] 00477 Bilirubin [Mass/Vol] 0.8 mg/dL Normal 0.2 - 1.0 [facility] Comment on above: Performed By: #### 2 73293 #### [facility],[address] [place] [address] Calcium [Mass/Vol] 8.3 mg/dL Low 8.5 - 10.1 [facility] Comment on above: Performed By: #### 2 10066 #### [facility],[address] [place] [address] Chloride [Moles/Vol] 105 mmol/L Normal 98 - 107 [facility] Comment on above: Performed By: #### 2 70685 #### [facility],[address] [place] [address] CMP with eGFR Normal [facility] Comment on above: Result Comment: COMP REHENSIVE METABOLIC PANEL Performed By: #### 2 65974 #### [facility],[address] [place] [address] CO2 [Moles/Vol] 26.2 mmol/L Normal 21.0 - 32.0 [facility] Comment on above: Performed By: #### 2 70198 #### [facility],[address] [place], [place] [address] Creatinine [Mass/Vol] 1.17 mg/dL High 0.55 - 1.02 [facility] Comment on above: Performed By: #### 2 34494 #### [facility],[address] [place] [address] eGFR 49 ML/MINUTE Low 60 - 999 [facility] Comment on above: Performed By: #### 2 58584 #### [facility],[address],[place] [address] eGFR(AA) 60 ML/MINUTE Normal 60 - 999 [facility] Comment on above: Result Comment: ACCO RDING TO THE NATIONAL KIDNEY DISEASE EDUCATION PROGRAM(NKDE), A NORMAL eGFR IS A VALUE GREATER THAN OR EQUAL TO 60 ML/MIN/1.73 SQ METERS. CHRONIC KIDNEY DISEASE: <60mL/MIN/1.73 SQ METERS KIDNEY FAILURE: <15mL/MIN/1.73 SQ METERS THIS TEST SHOULD ONLY BE USED FOR PATIENTS 18 YEARS OF AGE AND OLDER. Performed By: #### 2 55814 #### [facility],[address] [place] [address] Globulin (S) [Mass/Vol] 3.1 g/dL Normal 1.5 - 3.8 [facility] Comment on above: Performed By: #### 2 39561 #### [facility],[address] [place] [address] 86053 Glucose [Mass/Vol] 112 mg/dL High 74 - 106 [facility] Comment on above: Performed By: #### 2 14023 #### [facility],[address] [place] [address] 67947 Potassium [Moles/Vol] 3.6 mmol/L Normal 3.5 - 5.1 [facility] Comment on above: Performed By: #### 2 48270 #### [facility],[address] [place] [address] 76770 Protein [Mass/Vol] 6.6 g/dL Normal 6.4 - 8.2 [facility] Comment on above: Performed By: #### 2 19759 #### [facility],[address] [place] [address] 61985 Sodium [Moles/Vol] 140 mmol/L Normal 136 - 145 [facility] Comment on above: Performed By: #### 2 07252 #### [facility],[address] [place] [address] 19797 Urea nitrogen [Mass/Vol] 12 mg/dL Normal 7 - 18 [facility] Comment on above: Performed By: #### 2 91483 #### [facility],[address] [place] [address] CBC + DIFFon 05-12-2024 Baso # 0.03 x10EE3/UL Normal 0.00 - 0.10 [facility] Comment on above: Performed By: #### 2 41053 #### [facility],[address] [place], [place] [address] Basophils/100 WBC (Bld) 0.4 % Normal 0.0 - 2.0 [facility] Comment on above: Performed By: #### 2 31375 #### [facility],[address] [place] [address] CBC + DIFF Normal [facility] Comment on above: Result Comment: CBC- COMPLETE BLOOD COUNT Performed By: #### 2 35538 #### [facility],[address] [place] [address] EO # 0.08 x10EE3/UL Normal 0.00 - 0.50 [facility] Comment on above: Performed By: #### 2 34853 #### [facility],[address] [place] [address] Eosinophils/100 WBC (Bld) 0.9 % Normal 0.0 - 7.0 [facility] Comment on above: Performed By: #### 2 62281 #### [facility],[address] [place] [address] Erythrocyte distribution width (RBC) [Ratio] 14.1 % Normal 12.0 - 15.6 [facility] Comment on above: Performed By: #### 2 94795 #### [facility],[address] [place] [address] Hematocrit (Bld) [Volume fraction] 39.4 % Normal 34.0 - 46.0 [facility] Comment on above: Performed By: #### 2 78136 #### [place] [address],[place] [address] Hemoglobin (Bld) [Mass/Vol] 12.7 g/dL Normal 12.0 - 16.0 [facility] Comment on above: Performed By: #### 2 03713 #### [facility],[address] [place], [place] [address] Lymph # 1.90 x10EE3/UL Normal 0.80 - 2.80 [facility] Comment on above: Performed By: #### 2 16418 #### [facility],[address] [place] [address] Lymphocytes/100 WBC (Bld) 23.3 % Normal 20.0 - 45.0 [facility] Comment on above: Performed By: #### 2 69052 #### [facility],[address] [place], [place] [address] MANUAL DIFF N/A Normal [facility] Comment on above: Performed By: #### 2 30451 #### [facility],[address] [place] [address] 70401 MCH (RBC) [Entitic mass] 29 pg Normal 27 - 33 [facility] Comment on above: Performed By: #### 2 99318 #### [facility],[address] [place] [address] 07794 MCHC 32 X10 3 Normal 32 - 36 [facility] Comment on above: Performed By: #### 2 03365 #### [facility],[address] [place] [address] 48670 MCV (RBC) [Entitic vol] 92 fL Normal 80 - 99 [facility] Comment on above: Performed By: #### 2 07971 #### [facility],[address] [place] [address] 8[address]16 [place] # 0.72 x10EE3/UL Normal 0.20 - 1.00 [facility] Comment on above: Performed By: #### 2 88473 #### [facility],[address] [place] [address] 97191 MONOS % 8.8 % Normal 0.0 - 10.0 [facility] Comment on above: Performed By: #### 2 42941 #### [facility],[address] [place] [address] 42861 Morphology Nicho (Bld) [Interp] N/A Normal [facility] Comment on above: Performed By: #### 2 49253 #### [facility],[address] [place] [address] 20705 Neut # 5.42 x10EE3/UL Normal 1.50 - 7.10 [facility] Comment on above: Performed By: #### 2 13156 #### [facility],[address] [place] [address] 32548 Neutrophils/100 WBC (Bld) 66.6 % Normal 46.0 - 76.0 [facility] Comment on above: Performed By: #### 2 89049 #### [facility],[address] [place] [address] 58160 PLATELET 254 x10EE3/UL Normal 150 - 450 [facility] Comment on above: Performed By: #### 2 47607 #### [facility],[address] [place] [address] 89923 Platelet mean volume (Bld) [Entitic vol] 8.1 fL Normal 6.6 - 10.5 [facility] Comment on above: Result Comment: AUTO MATED DIFFERENTIAL Performed By: #### 2 92913 #### [facility],[address] [place] [address] 42645 RBC 4.31 x 10EE6/UL Normal 4.10 - 5.30 [facility] Comment on above: Performed By: #### 2 55106 #### [facility],[address] [place] [address] 55023 WBC 8.1 x 10EE3/UL Normal 4.5 - 10.8 [facility] Comment on above: Performed By: #### 2 10829 #### [facility],[address] [place] [address] 55974 CMP with eGFRon 05-12-2024 AGE 49 years Normal [facility] Comment on above: Performed By: #### 2 32981 #### [facility],[address] [place] [address] 97094 Albumin [Mass/Vol] 3.6 g/dL Normal 3.4 - 5.0 [facility] Comment on above: Performed By: #### 2 93843 #### [facility],[address] [place] [address] 54225 Albumin/Globulin [Mass ratio] 1.1 {ratio} Normal 0.9 - 1.6 [facility] Comment on above: Performed By: #### 2 94648 #### [facility],[address] [place] [address] 80185 ALK PHOS 48 U/L Normal 46 - 116 [facility] Comment on above: Performed By: #### 2 93676 #### [facility],[address] [place] [address] 87472 ALT [Catalytic activity/Vol] 17 U/L Normal 16 - 63 [facility] Comment on above: Performed By: #### 2 41601 #### [facility],[address] [place] [address] 66740 Anion gap [Moles/Vol] 16 mmol/L Normal 10 - 20 [facility] Comment on above: Performed By: #### 2 13855 #### [facility],[address] [place] [address] 35258 AST [Catalytic activity/Vol] 13 U/L Normal 13 - 39 [facility] Comment on above: Performed By: #### 2 51089 #### [facility],[address] [place] [address] 65274 B/C RATIO 11 ratio Normal 0 - 30 [facility] Comment on above: Performed By: #### 2 68633 #### [facility],[address] [place] [address] 82357 Bilirubin [Mass/Vol] 1.5 mg/dL High 0.2 - 1.0 [facility] Comment on above: Performed By: #### 2 85846 #### [facility],[address] [place] [address] 55323 Calcium [Mass/Vol] 8.7 mg/dL Normal 8.5 - 10.1 [facility] Comment on above: Performed By: #### 2 19824 #### [facility],[address] [place] [address] 77668 Chloride [Moles/Vol] 104 mmol/L Normal 98 - 107 [facility] Comment on above: Performed By: #### 2 10943 #### [facility],[address] [place] [address] CMP with eGFR Normal [facility] Comment on above: Result Comment: COMP REHENSIVE METABOLIC PANEL Performed By: #### 2 46247 #### [facility],[address] [place] [address] 73902 CO2 [Moles/Vol] 24.2 mmol/L Normal 21.0 - 32.0 [facility] Comment on above: Performed By: #### 2 32496 #### [facility],[address] [place] [address] 87825 Creatinine [Mass/Vol] 1.08 mg/dL High 0.55 - 1.02 [facility] Comment on above: Performed By: #### 2 78776 #### [facility],[address] [place] [address] 04218 eGFR 54 ML/MINUTE Low 60 - 999 [facility] Comment on above: Performed By: #### 2 39243 #### [facility],[address] [place] [address] 84692 GFR/1.73 sq M.predicted among non-blacks MDRD (S/P/Bld) [Vol rate/Area] mL/min/{1.73_m2} Normal 60 - 999 [facility] Comment on above: Result Comment: ACCO RDING TO THE NATIONAL KIDNEY DISEASE EDUCATION PROGRAM(NKDE), A NORMAL eGFR IS A VALUE GREATER THAN OR EQUAL TO 60 ML/MIN/1.73 SQ METERS. CHRONIC KIDNEY DISEASE: <60mL/MIN/1.73 SQ METERS KIDNEY FAILURE: <15mL/MIN/1.73 SQ METERS THIS TEST SHOULD ONLY BE USED FOR PATIENTS 18 YEARS OF AGE AND OLDER. Performed By: #### 2 53591 #### [address] [address] Globulin (S) [Mass/Vol] 3.3 g/dL Normal 1.5 - 3.8 [facility] Comment on above: Performed By: #### 2 95343 #### [address] [address] Glucose [Mass/Vol] 82 mg/dL Normal 74 - 106 [facility] Comment on above: Performed By: #### 2 86744 #### [address] [address] Potassium [Moles/Vol] 4.0 mmol/L Normal 3.5 - 5.1 [facility] Comment on above: Performed By: #### 2 62977 #### [address] [address] Protein [Mass/Vol] 6.9 g/dL Normal 6.4 - 8.2 [facility] Comment on above: Performed By: #### 2 21482 #### [address] [address] Sodium [Moles/Vol] 140 mmol/L Normal 136 - 145 [facility] Comment on above: Performed By: #### 2 25891 #### [address] [address] Urea nitrogen [Mass/Vol] 12 mg/dL Normal 7 - 18 [facility] Comment on above: Performed By: #### 2 98468 #### [facility],1 [facility] [address] Orthopedic Visit Reporton Orthopedic Visit Report [facility] [address] [place] [address] OFFICE VISIT Date of Service: 05/01/24 MR#: [id number] Acct: [id number] Name: ANANTH DAVENPORT Rep #: [id number] : 1975 Provider: Dr. Raghav puente MD Age/Sex: 49/F Location: [facility] Status: Signed Intake Vital Signs 12/20/23 08:32 Height 5 ft Weight: 129 lb 8 oz BMI 25.2 Intake Visit Reasons: RIGHT HAND Chief Complaint: Right Hand Accompanied by: Self Is patient in pain?: Yes Allergies Latex, Natural Rubber Adverse Reaction (Intermediate, Verified 05/01/24 08:28) rash/itchy Medications ???Medication ???Instructions ???Recorded ???Confirmed ???Type levothyroxine 50 mcg capsule 50 mcg PO DAILY 02/07/21 05/01/24 History folic acid 1 mg tablet 1 mg PO QWEEK 11/19/22 05/01/24 History hydroxychloroquine 200 mg tablet 200 mg PO QWEEK 11/19/22 05/01/24 History methotrexate sodium 2.5 mg tablet 2.5 mg PO QWEEK 11/19/22 05/01/24 History omeprazole 20 mg capsule,delayed 20 mg PO DAILY 11/19/22 05/01/24 History release PFSH Medical History Left lateral epicondylitis Tendinitis of extensor tendon of left hand Right carpal tunnel syndrome Right hand pain Aortic valve insufficiency Surgical History H/O arthroscopy of right knee History of cholecystectomy History of nephrectomy H/O tubal ligation Family History Brother Heart disease Mother Cancer Arthritis Father Hypertension Social History Smoking Status: Never smoker alcohol intake: never HPI RIGHT HAND Details: This documentation accurately reflects the service provided and the decisions made by me, Dr. Raghav Ngo MD 05/01/24 0883. Part of today???s visit was documented by [ ], acting as scribe. ANANTH DAVENPORT is a 49 year old F here today for 5 months following up right carpal tunnel syndrome and injection. Patient doing well they work at [employer] the hands been going numb especially with repetitive heavy lifting. The injections have been effective so the patient is wanting a repeat shot. Supplemental Info Nerve conduction studies were reviewed from the past that shows mild carpal tunnel syndrome on the right side Coding Level of Care Code Pedrito Fontenot Diagnoses Right carpal tunnel syndrome G56.01 Comment 62021 and CPT inject carpal tunnel Assessment and Plan Assessment and Plan (1) Right carpal tunnel syndrome: Status: Acute Plan: 49-year-old female with right carpal tunnel syndrome. The patient has had good results in the past with cortisone injections. The patient wants to go ahead with repeat injection today we did that a nd they will follow-up as needed. We discussed the pros and cons risks and benefits of going ahead with right side carpal tunnel cortisone injection. Risks include but not limited to infection, pain, damage to surrounding structures, recurrence, failure to improve the problem, bleeding, and other risks. Patient wished to proceed and signed an informed consent document. The area over the transverse carpal tunnel ligament , just at wrist crease, was prepped with chlorhexidine swab allowed to thoroughly dry over 3 minutes. Site was verbally confirmed by the patient. A sterile no touch technique and sterile gloves. I used a 25-gauge needle. 0.5 cc of 40 mg/mL Kenalog as well as 1 cc of 0.25% bupivacaine was instilled into the carpal tunnel area. This flowed nicely and easily without resistance. Needle was withdrawn. Patient tolerated the procedure well. We placed a bandage on afterwards. Aftercare instructions were given to keep the site clean and dry clean with gentle soap and water no heavy lifting or gripping and return to the office immediately or to the emergency department for signs of infection or other complications such as redness fever, chills, drainage discharge or other side effects. Ortho Exam General General: Yes no acute distress Neurologic: Yes alert and Yes oriented x3 Psychologic: Yes reasonable and appropriate Right Wrist/Hand Skin/Wound: Yes CDI, No Swelling, No Ecchymosis and Yes nail intact Right Wrist: Yes ROM-Extension 0-60, ROM-Flexion 0-80, ROM-Pronation 0-80, ROM-Supination 0-90, Durken's Test, Tinel's and Thenar Atrophy; No Hypothenar Atrophy Motor: EPL: 5, FDP-2: 5, 1st Dorsal Interosseous: 5 and APB: 5 Sensation: Radial: I, Ulnar: I and Median: I Left Wrist/Hand Skin/Wound: No Swelling and No Ecchymosis 05/01/2435 Date Raghav Batista Signature: Date __ (more content not included)... Normal [facility] CMP with eGFRon 04-20-2024 AGE 49 years Normal [facility] Comment on above: Performed By: #### 2 04893 #### [facility],[address] [place], [place] [address] Albumin [Mass/Vol] 3.4 g/dL Normal 3.4 - 5.0 [facility] Comment on above: Performed By: #### 2 96142 #### [facility],[address] [place] [address] Albumin/Globulin [Mass ratio] 1.0 {ratio} Normal 0.9 - 1.6 [facility] Comment on above: Performed By: #### 2 31709 #### [facility],[address] [place] [address] ALK PHOS 46 U/L Normal 46 - 116 [facility] Comment on above: Performed By: #### 2 61424 #### [facility],[address] [place] [address] ALT [Catalytic activity/Vol] 25 U/L Normal 16 - 63 [facility] Comment on above: Performed By: #### 2 29985 #### [facility],[address] [place] [address] Anion gap [Moles/Vol] 11 mmol/L Normal 10 - 20 [facility] Comment on above: Performed By: #### 2 26158 #### [facility],[address] [place] [address]236 AST [Catalytic activity/Vol] 18 U/L Normal 13 - 39 [facility] Comment on above: Performed By: #### 2 30949 #### [facility],[address] [place] [address] B/C RATIO 9 ratio Normal 0 - 30 [facility] Comment on above: Performed By: #### 2 89908 #### [facility],[address] [place] [address] Bilirubin [Mass/Vol] 1.0 mg/dL Normal 0.2 - 1.0 [facility] Comment on above: Performed By: #### 2 58050 #### [facility],[address] [place] [address] Calcium [Mass/Vol] 8.1 mg/dL Low 8.5 - 10.1 [facility] Comment on above: Performed By: #### 2 86460 #### [facility],[address] [place] [address] Chloride [Moles/Vol] 105 mmol/L Normal 98 - 107 [facility] Comment on above: Performed By: #### 2 80354 #### [facility],[address] [place] [address] CMP with eGFR Normal [facility] Comment on above: Result Comment: COMP REHENSIVE METABOLIC PANEL Performed By: #### 2 64066 #### [facility],[address] [place] [address] CO2 [Moles/Vol] 27.0 mmol/L Normal 21.0 - 32.0 [facility] Comment on above: Performed By: #### 2 11593 #### [facility],[address] [place] [address] Creatinine [Mass/Vol] 0.99 mg/dL Normal 0.55 - 1.02 [facility] Comment on above: Performed By: #### 2 75450 #### [facility],[address] [place] [address] eGFR 60 ML/MINUTE Normal 60 - 999 [facility] Comment on above: Performed By: #### 2 35871 #### [facility],[address] [place] [address] GFR/1.73 sq M.predicted among non-blacks MDRD (S/P/Bld) [Vol rate/Area] mL/min/{1.73_m2} Normal 60 - 999 [facility] Comment on above: Result Comment: ACCO RDING TO THE NATIONAL KIDNEY DISEASE EDUCATION PROGRAM(NKDE), A NORMAL eGFR IS A VALUE GREATER THAN OR EQUAL TO 60 ML/MIN/1.73 SQ METERS. CHRONIC KIDNEY DISEASE: <60mL/MIN/1.73 SQ METERS KIDNEY FAILURE: <15mL/MIN/1.73 SQ METERS THIS TEST SHOULD ONLY BE USED FOR PATIENTS 18 YEARS OF AGE AND OLDER. Performed By: #### 2 28325 #### [facility],[address] [place] [address] Globulin (S) [Mass/Vol] 3.4 g/dL Normal 1.5 - 3.8 [facility] Comment on above: Performed By: #### 2 41398 #### [facility],[address] [place] [address] Glucose [Mass/Vol] 84 mg/dL Normal 74 - 106 [facility] Comment on above: Performed By: #### 2 27231 #### [facility],[address] [place] [address] Potassium [Moles/Vol] 3.8 mmol/L Normal 3.5 - 5.1 [facility] Comment on above: Performed By: #### 2 28043 #### [facility],[address] [place] [address]69 Protein [Mass/Vol] 6.8 g/dL Normal 6.4 - 8.2 [facility] Comment on above: Performed By: #### 2 56784 #### [facility],[address] [place] [address]1 Sodium [Moles/Vol] 139 mmol/L Normal 136 - 145 [facility] Comment on above: Performed By: #### 2 21706 #### [place] [id number] Urea nitrogen [Mass/Vol] 9 mg/dL Normal 7 - 18 [facility] Comment on above: Performed By: #### 2 67133 #### [facility],[address] [place] [address] T4-FREE (FREE THYROXINE)on Free T4 [Mass/Vol] 0.80 ng/dL Normal 0.76 - 1.46 [facility] Comment on above: Result Comment: P otential of falsely elevated results when biotin concentrations are > 10 ng/mL. Performed By: #### 2 84329 #### [facility],[address] [place] [address]91 TSHon 04-20-2024 TSH Qn 2.04 m[IU]/L Normal 0.35 - 3.74 [facility] Comment on above: Performed By: #### 2 26427 #### [facility],[address] [place] [address] CBC + DIFFon 02-14-2024 Baso # 0.02 x10EE3/UL Normal 0.00 - 0.10 [facility] Comment on above: Performed By: #### 2 89279 ####[place] [address] Basophils/100 WBC (Bld) 0.3 % Normal 0.0 - 2.0 [facility] Comment on above: Performed By: #### 2 66388 ####[place] [address] CBC + DIFF Normal [facility] Comment on above: Result Comment: CBC- COMPLETE BLOOD COUNT Performed By: #### 2 59235 ####[place] [address] EO # 0.15 x10EE3/UL Normal 0.00 - 0.50 [facility] Comment on above: Performed By: #### 2 93464 ####[place] [address] Eosinophils/100 WBC (Bld) 2.7 % Normal 0.0 - 7.0 [facility] Comment on above: Performed By: #### 2 67009 ####[place] [address] Erythrocyte distribution width (RBC) [Ratio] 14.7 % Normal 12.0 - 15.6 [facility] Comment on above: Performed By: #### 2 12459 ####[place] [address] Hematocrit (Bld) [Volume fraction] 37.4 % Normal 34.0 - 46.0 [facility] Comment on above: Performed By: #### 2 15390 ####[place] [address] Hemoglobin (Bld) [Mass/Vol] 12.4 g/dL Normal 12.0 - 16.0 [facility] Comment on above: Performed By: #### 2 29435 ####[address],[place] [address] Lymph # 1.74 x10EE3/UL Normal 0.80 - 2.80 [facility] Comment on above: Performed By: #### 2 52756 ####[facility],[address] [place] [address] Lymphocytes/100 WBC (Bld) 30.7 % Normal 20.0 - 45.0 [facility] Comment on above: Performed By: #### 2 27674 ####[facility],[address] [place] [address] MANUAL DIFF N/A Normal [facility] Comment on above: Performed By: #### 2 18417 ####[facility],[address] [place] [address] MCH (RBC) [Entitic mass] 31 pg Normal 27 - 33 [facility] Comment on above: Performed By: #### 2 11594 ####[facility],[address] [place] [address] MCHC 33 X10 3 Normal 32 - 36 [facility] Comment on above: Performed By: #### 2 76913 ####[facility],[address] [place] [address] MCV (RBC) [Entitic vol] 92 fL Normal 80 - 99 [facility] Comment on above: Performed By: #### 2 47461 ####[facility],[address] [place] [address] [place] # 0.48 x10EE3/UL Normal 0.20 - 1.00 [facility] Comment on above: Performed By: #### 2 61217 ####[facility],[address] [place] [address] MONOS % 8.4 % Normal 0.0 - 10.0 [facility] Comment on above: Performed By: #### 2 53027 ####[facility],[address] [place], [place] [address] Morphology Nicho (Bld) [Interp] N/A Normal [facility] Comment on above: Performed By: #### 2 61825 ####[facility],[address] [place] [address]002 Neut # 3.28 x10EE3/UL Normal 1.50 - 7.10 [facility] Comment on above: Performed By: #### 2 45281 ####[facility],[address] [place] [address] 03084 Neutrophils/100 WBC (Bld) 57.9 % Normal 46.0 - 76.0 [facility] Comment on above: Performed By: #### 2 24841 ####[facility],[address] [place] [address] 18952 PLATELET 214 x10EE3/UL Normal 150 - 450 [facility] Comment on above: Performed By: #### 2 17113 ####[facility],[address] [place] [address] 47697 Platelet mean volume (Bld) [Entitic vol] 7.8 fL Normal 6.6 - 10.5 [facility] Comment on above: Result Comment: AUTO MATED DIFFERENTIAL Performed By: #### 2 17957 ####[facility],[address] [place] [address]000 RBC 4.05 x 10EE6/UL Low 4.10 - 5.30 [facility] Comment on above: Performed By: #### 2 14143 ####[facility],[address] [place] [address] 41939 WBC 5.7 x 10EE3/UL Normal 4.5 - 10.8 [facility] Comment on above: Performed By: #### 2 52500 ####[facility],[address] [place] [address] 12685 CMP with eGFRon 02-14-2024 AGE 48 years Normal [facility] Comment on above: Performed By: #### 2 82007 ####[facility],[address] [place] [address] 09733 Albumin [Mass/Vol] 3.4 g/dL Normal 3.4 - 5.0 [facility] Comment on above: Performed By: #### 2 22909 ####[facility],[address] [place] [address] 29620 Albumin/Globulin [Mass ratio] 1.1 {ratio} Normal 0.9 - 1.6 [facility] Comment on above: Performed By: #### 2 02588 ####[facility],[address] [place] [address] 58317 ALK PHOS 47 U/L Normal 46 - 116 [facility] Comment on above: Performed By: #### 2 99768 ####[facility],[address] [place] [address] 97789 ALT [Catalytic activity/Vol] 24 U/L Normal 16 - 63 [facility] Comment on above: Performed By: #### 2 29090 ####[facility],[address] [place] [address] 27293 Anion gap [Moles/Vol] 14 mmol/L Normal 10 - 20 [facility] Comment on above: Performed By: #### 2 79596 ####[facility],[address] [place] [address] 08432 AST [Catalytic activity/Vol] 18 U/L Normal 13 - 39 [facility] Comment on above: Performed By: #### 2 42055 ####[facility],[address] [place] [address] 42855 B/C RATIO 9 ratio Normal 0 - 30 [facility] Comment on above: Performed By: #### 2 96109 ####[facility],[address] [place] [address] 57969 Bilirubin [Mass/Vol] 1.0 mg/dL Normal 0.2 - 1.0 [facility] Comment on above: Performed By: #### 2 24102 ####[facility],[address] [place] [address] 21329 Calcium [Mass/Vol] 8.8 mg/dL Normal 8.5 - 10.1 [facility] Comment on above: Performed By: #### 2 23914 ####[facility],[address] [place] [address] 98752 Chloride [Moles/Vol] 104 mmol/L Normal 98 - 107 [facility] Comment on above: Performed By: #### 2 44843 ####[facility],[address] [place] [address] 51263 CMP with eGFR Normal [facility] Comment on above: Result Comment: COMP REHENSIVE METABOLIC PANEL Performed By: #### 2 65315 ####[facility],[address] [place] [address] 76886 CO2 [Moles/Vol] 25.7 mmol/L Normal 21.0 - 32.0 [facility] Comment on above: Performed By: #### 2 03602 ####[facility],[address] [place] [address] 80338 Creatinine [Mass/Vol] 0.95 mg/dL Normal 0.55 - 1.02 [facility] Comment on above: Performed By: #### 2 33741 ####[facility],[address] [place] [address] 43507 GFR/1.73 sq M.predicted among non-blacks MDRD (S/P/Bld) [Vol rate/Area] mL/min/{1.73_m2} Normal 60 - 999 [facility] Comment on above: Performed By: #### 2 77621 ####[facility],[address] [place] [address] 82491 Result Comment: ACCO RDING TO THE NATIONAL KIDNEY DISEASE EDUCATION PROGRAM(NKDE), A NORMAL eGFR IS A VALUE GREATER THAN OR EQUAL TO 60 ML/MIN/1.73 SQ METERS. CHRONIC KIDNEY DISEASE: <60mL/MIN/1.73 SQ METERS KIDNEY FAILURE: <15mL/MIN/1.73 SQ METERS THIS TEST SHOULD ONLY BE USED FOR PATIENTS 18 YEARS OF AGE AND OLDER. Globulin (S) [Mass/Vol] 3.2 g/dL Normal 1.5 - 3.8 [facility] Comment on above: Performed By: #### 2 43858 ####[facility],[address] [place] [address] 04084 Glucose [Mass/Vol] 86 mg/dL Normal 74 - 106 [facility] Comment on above: Performed By: #### 2 79387 ####[facility],[address] [place] [address] 12930 Potassium [Moles/Vol] 3.9 mmol/L Normal 3.5 - 5.1 [facility] Comment on above: Performed By: #### 2 06958 ####[address] [address] Protein [Mass/Vol] 6.6 g/dL Normal 6.4 - 8.2 [facility] Comment on above: Performed By: #### 2 78810 ####[address] [address] Sodium [Moles/Vol] 140 mmol/L Normal 136 - 145 [facility] Comment on above: Performed By: #### 2 28960 ####[address] [address] Urea nitrogen [Mass/Vol] 9 mg/dL Normal 7 - 18 [facility] Comment on above: Performed By: #### 2 42145 ####[address] [address] CBC + DIFFon 11-24-2023 Baso # 0.01 x10EE3/UL Normal 0.00 - 0.10 [facility] Comment on above: Performed By: #### 2 09320 ####[address] [address] Basophils/100 WBC (Bld) 0.2 % Normal 0.0 - 2.0 [facility] Comment on above: Performed By: #### 2 56196 ####[facility],[address] [place] [address] CBC + DIFF Normal [facility] Comment on above: Result Comment: CBC- COMPLETE BLOOD COUNT Performed By: #### 2 61067 ####[facility],[address] [place] [address] EO # 0.27 x10EE3/UL Normal 0.00 - 0.50 [facility] Comment on above: Performed By: #### 2 66943 ####[facility],[address] [place] [address] Eosinophils/100 WBC (Bld) 4.1 % Normal 0.0 - 7.0 [facility] Comment on above: Performed By: #### 2 18829 ####[facility],[address] [place] [address] Erythrocyte distribution width (RBC) [Ratio] 14.5 % Normal 12.0 - 15.6 [facility] Comment on above: Performed By: #### 2 72353 ####[facility],[address] [place] [address] Hematocrit (Bld) [Volume fraction] 38.1 % Normal 34.0 - 46.0 [facility] Comment on above: Performed By: #### 2 86419 ####[facility],[address] [place] [address] Hemoglobin (Bld) [Mass/Vol] 12.7 g/dL Normal 12.0 - 16.0 [facility] Comment on above: Performed By: #### 2 53215 ####[facility],[address] [place] [address] Lymph # 1.73 x10EE3/UL Normal 0.80 - 2.80 [facility] Comment on above: Performed By: #### 2 20010 ####[facility],[address] [place] [address] Lymphocytes/100 WBC (Bld) 26.3 % Normal 20.0 - 45.0 [facility] Comment on above: Performed By: #### 2 65916 ####[facility],[address] [place] [address] MANUAL DIFF N/A Normal [facility] Comment on above: Performed By: #### 2 44031 ####[facility],[address] [place] [address] MCH (RBC) [Entitic mass] 30 pg Normal 27 - 33 [facility] Comment on above: Performed By: #### 2 44233 ####[facility],[address] [place] [address] MCHC 33 X10 3 Normal 32 - 36 [facility] Comment on above: Performed By: #### 2 33054 ####[facility],[address] [place] [address] MCV (RBC) [Entitic vol] 89 fL Normal 80 - 99 [facility] Comment on above: Performed By: #### 2 05505 ####[facility],[address] [place] [address] [place] # 0.39 x10EE3/UL Normal 0.20 - 1.00 [facility] Comment on above: Performed By: #### 2 11072 ####[facility],[address] [place] [address] MONOS % 6.0 % Normal 0.0 - 10.0 [facility] Comment on above: Performed By: #### 2 71980 ####[facility],[address] [place] [address] Morphology Nicho (Bld) [Interp] N/A Normal [facility] Comment on above: Performed By: #### 2 83050 ####[facility],[address],[place] [address] Neut # 4.16 x10EE3/UL Normal 1.50 - 7.10 [facility] Comment on above: Performed By: #### 2 87694 ####[facility],[address] [place] [address] 04905 Neutrophils/100 WBC (Bld) 63.4 % Normal 46.0 - 76.0 [facility] Comment on above: Performed By: #### 2 07443 ####[facility],[address] [place] [address] 12006 PLATELET 198 x10EE3/UL Normal 150 - 450 [facility] Comment on above: Performed By: #### 2 82717 ####[facility],[address] [place] [address] 38947 Platelet mean volume (Bld) [Entitic vol] 8.8 fL Normal 6.6 - 10.5 [facility] Comment on above: Result Comment: AUTO MATED DIFFERENTIAL Performed By: #### 2 84375 ####[facility],[address] [place] [address] 66927 RBC 4.31 x 10EE6/UL Normal 4.10 - 5.30 [facility] Comment on above: Performed By: #### 2 63095 ####[facility],[address] [place] [address] 74219 WBC 6.6 x 10EE3/UL Normal 4.5 - 10.8 [facility] Comment on above: Performed By: #### 2 85001 ####[facility],[address] [place] [address] 28818 CMP with eGFRon 11-24-2023 AGE 48 years Normal [facility] Comment on above: Performed By: #### 2 39924 #### [facility],[address] [place] [address] 31309 Albumin [Mass/Vol] 3.6 g/dL Normal 3.4 - 5.0 [facility] Comment on above: Performed By: #### 2 66728 #### [facility],[address] [place] [address] 25504 Albumin/Globulin [Mass ratio] 1.1 {ratio} Normal 0.9 - 1.6 [facility] Comment on above: Performed By: #### 2 61771 #### [facility],[address] [place] [address] 07244 ALK PHOS 44 U/L Low 46 - 116 [facility] Comment on above: Performed By: #### 2 [id number] #### [facility],[address] [place] [address] 90998 ALT [Catalytic activity/Vol] 22 U/L Normal 16 - 63 [facility] Comment on above: Performed By: #### 2 61873 #### [facility],[address] [place] [address] 91584 Anion gap [Moles/Vol] 11 mmol/L Normal 10 - 20 [facility] Comment on above: Performed By: #### 2 27780 #### [facility],[address] [place] [address] 42139 AST [Catalytic activity/Vol] 18 U/L Normal 13 - 39 [facility] Comment on above: Performed By: #### 2 10625 #### [facility],[address] [place] [address] 58923 B/C RATIO 9 ratio Normal 0 - 30 [facility] Comment on above: Performed By: #### 2 50294 #### [facility],[address] [place] [address] 90923 Bilirubin [Mass/Vol] 1.5 mg/dL High 0.2 - 1.0 [facility] Comment on above: Performed By: #### 2 25398 #### [facility],[address] [place] [address] 54724 Calcium [Mass/Vol] 8.5 mg/dL Normal 8.5 - 10.1 [facility] Comment on above: Performed By: #### 2 39685 #### [facility],[address] [place] [address] 04562 Chloride [Moles/Vol] 106 mmol/L Normal 98 - 107 [facility] Comment on above: Performed By: #### 2 29494 #### [facility],[address] [place] [address] 28322 CMP with eGFR Normal [facility] Comment on above: Result Comment: COMP REHENSIVE METABOLIC PANEL Performed By: #### 2 30535 #### [facility],[address] [place] [address] 57738 CO2 [Moles/Vol] 26.6 mmol/L Normal 21.0 - 32.0 [facility] Comment on above: Performed By: #### 2 20738 #### [facility],[address] [place] [address] 92649 Creatinine [Mass/Vol] 0.92 mg/dL Normal 0.55 - 1.02 [facility] Comment on above: Performed By: #### 2 47785 #### [facility],[address] [place] [address] 94366 GFR/1.73 sq M.predicted among non-blacks MDRD (S/P/Bld) [Vol rate/Area] mL/min/{1.73_m2} Normal 60 - 999 [facility] Comment on above: Performed By: #### 2 58801 #### [facility],[address] [place] [address] 48957 Result Comment: ACCO RDING TO THE NATIONAL KIDNEY DISEASE EDUCATION PROGRAM(NKDE), A NORMAL eGFR IS A VALUE GREATER THAN OR EQUAL TO 60 ML/MIN/1.73 SQ METERS. CHRONIC KIDNEY DISEASE: <60mL/MIN/1.73 SQ METERS KIDNEY FAILURE: <15mL/MIN/1.73 SQ METERS THIS TEST SHOULD ONLY BE USED FOR PATIENTS 18 YEARS OF AGE AND OLDER. Globulin (S) [Mass/Vol] 3.2 g/dL Normal 1.5 - 3.8 [facility] Comment on above: Performed By: #### 2 92359 #### [facility],[address] [place] [address] 30135 Glucose [Mass/Vol] 79 mg/dL Normal 74 - 106 [facility] Comment on above: Performed By: #### 2 94761 #### [facility],[address] [place] [address] 43123 Potassium [Moles/Vol] 4.0 mmol/L Normal 3.5 - 5.1 [facility] Comment on above: Performed By: #### 2 08964 #### [facility],[address] [place] [address] 10947 Protein [Mass/Vol] 6.8 g/dL Normal 6.4 - 8.2 [facility] Comment on above: Performed By: #### 2 37482 #### [address] [address] Sodium [Moles/Vol] 140 mmol/L Normal 136 - 145 [facility] Comment on above: Performed By: #### 2 65953 #### [facility],[address] [place] [address] 17078 Urea nitrogen [Mass/Vol] 8 mg/dL Normal 7 - 18 [facility] Comment on above: Performed By: #### 2 41450 #### [address] [address] CULTURE, URINE, ROUTINEon CULTURE, URINE, ROUTINE SEE NOTE Normal [facility] Comment on above: Result Comment: CULTURE, URINE, ROUTINE Micro Number: [id number] Test Status: Final Specimen Source: Urine Specimen Quality: Adequate Result: Mixed genital yanely isolated. These superficial bacteria are not indicative of a urinary tract infection. No further organism identification is warranted on this specimen. If clinically indicated, recollect clean-catch, mid-stream urine and transfer immediately to Urine Culture Transport Tube. Performed By: #### 3 95 #### [facility] [address], [address] [place] [address] Fence Builder: Elliot Polanco MD BASIC METABOLIC PANEL 04-0 BUN/CREATININE RATIO NOT APPLICABLE Normal 6-22 [facility] Comment on above: Performed By: #### 1 0165, 6399 #### [facility] [place] [address] Fence Builder: Elliot Polanco MD Calcium [Mass/Vol] 9.1 mg/dL Normal 8.6-10.2 [facility] Comment on above: Performed By: #### 1 0165, 6399 #### [facility] [place] [address] Fence Builder: Elliot Polanco MD Chloride [Moles/Vol] 103 mmol/L Normal 98-110 [facility] Comment on above: Performed By: #### 1 0165, 6399 #### [facility] [place] [address] Fence Builder: Elliot Polanco MD CO2 [Moles/Vol] 27 mmol/L Normal 20-32 [facility] Comment on above: Performed By: #### 1 0165, 6399 #### [facility] [place] [address] Fence Builder: Elliot Polanco MD Creatinine [Mass/Vol] 0.96 mg/dL Normal 0.50-1.[address] [facility] Comment on above: Performed By: #### 1 0165, 6399 #### [facility] [place] [address] Fence Builder: Elliot Polanco MD eGFR NON-AFR. BOTSWANAN 71 mL/min/1.73m2 Normal > OR = 60 [facility] Comment on above: Performed By: #### 1 0165, 6399 #### [facility] of [place] [address] Fence Builder: Elliot Polanco MD GFR/1.73 sq M.predicted among blacks MDRD (S/P/Bld) [Vol rate/Area] 83 mL/min/{1.73_m2} Normal > OR = 60 [facility] Comment on above: Performed By: #### 1 0165, 6399 #### [facility] [place] [address] Fence Builder: Elliot Polanco MD Glucose [Mass/Vol] 86 mg/dL Normal 65-99 [facility] Comment on above: Result Comment: Fasting reference interval Performed By: #### 1 0165, 6399 #### [facility] [place] [address] Fence Builder: Elliot Polanco MD Potassium [Moles/Vol] 4.3 mmol/L Normal 3.5-5.[address] [facility] Comment on above: Performed By: #### 1 0165, 6399 #### [facility] [place] [address] Fence Builder: Elliot Polanco MD Sodium [Moles/Vol] 137 mmol/L Normal 135-146 [facility] Comment on above: Performed By: #### 1 0165, 6399 #### [facility] [place] [address] Fence Builder: Elliot Polanco MD Urea nitrogen [Mass/Vol] 13 mg/dL Normal 7-25 [facility] Comment on above: Performed By: #### 1 0165, 6399 #### [facility] [place] [address] Fence Builder: Elliot Polanco MD CBC (INCLUDES DIFF/PLT)on Basophils (Bld) [#/Vol] 0.086 10*3/uL Normal 0-200 [facility] Comment on above: Performed By: #### 1 0165, 6399 #### [facility] [place] [address] Fence Builder: Elliot Polanco MD Basophils/100 WBC (Bld) 1.0 % Normal [facility] Comment on above: Performed By: #### 1 0165, 6399 #### [facility] of [address], [address] [place] [address] Fence Builder: Elliot Polanco MD Eosinophils (Bld) [#/Vol] 0.146 10*3/uL Normal 15-500 [facility] Comment on above: Performed By: #### 1 0165, 6399 #### [facility] of [address], [address] [place] [address] Fence Builder: Elliot Polanco MD Eosinophils/100 WBC (Bld) 1.7 % Normal [facility] Comment on above: Performed By: #### 1 0165, 6399 #### [facility] [place] [address] Fence Builder: Elliot Polanco MD Erythrocyte distribution width (RBC) [Ratio] 13.2 % Normal 11.0-15.0 [facility] Comment on above: Performed By: #### 1 0165, 6399 #### [facility] [place] [address] Fence Builder: Elliot Polanco MD Hematocrit (Bld) [Volume fraction] 41.8 % Normal 35.0-45.0 [facility] Comment on above: Performed By: #### 1 0165, 6399 #### [facility] [place] [address] Fence Builder: Elliot Polanco MD Hemoglobin (Bld) [Mass/Vol] 13.8 g/dL Normal 11.7-15.5 [facility] Comment on above: Performed By: #### 1 0165, 6399 #### [facility] of [address], [address] [place] [address] Fence Builder: Elliot Polanco MD Lymphocytes (Bld) [#/Vol] 2.116 10*3/uL Normal 850-3900 [facility] Comment on above: Performed By: #### 1 0165, 6399 #### [facility] [place] [address] Fence Builder: Elliot Polanco MD Lymphocytes/100 WBC (Bld) 24.6 % Normal [facility] Comment on above: Performed By: #### 1 0165, 6399 #### [facility] [place] [address] Fence Builder: Elliot Polanco MD MCH (RBC) [Entitic mass] 29.6 pg Normal 27.0-33.0 [facility] Comment on above: Performed By: #### 1 0165, 6399 #### [facility] [place] [address] Fence Builder: Elliot Polanco MD MCHC (RBC) [Mass/Vol] 33.0 g/dL Normal 32.0-36.[address] [facility] Comment on above: Performed By: #### 1 0165, 6399 #### [facility] [place] [address] Fence Builder: Elliot Polanco MD MCV (RBC) [Entitic vol] 89.7 fL Normal 80.0-100.0 [facility] Comment on above: Performed By: #### 1 0165, 6399 #### [facility] [place] [address] Fence Builder: Elliot Polanco MD Monocytes (Bld) [#/Vol] 0.679 10*3/uL Normal 200-950 [facility] Comment on above: Performed By: #### 1 0165, 6399 #### [facility] [place] [address] Fence Builder: Elliot Polanco MD Monocytes/100 WBC (Bld) 7.9 % Normal [facility] Comment on above: Performed By: #### 1 0165, 6399 #### [facility] [place] [address] Fence Builder: Elliot Polanco MD Neutrophils (Bld) [#/Vol] 5.573 10*3/uL Normal 8857-0662 [facility] Comment on above: Performed By: #### 1 0165, 6399 #### [facility] of [address], [address] [place] [address] Fence Builder: Elliot Polanco MD Neutrophils/100 WBC (Bld) 64.8 % Normal [facility] Comment on above: Performed By: #### 1 0165, 6399 #### [facility] of [address], [address] [place] [address] Fence Builder: Elliot Polanco MD Platelet mean volume (Bld) [Entitic vol] 10.7 fL Normal 7.5-12.5 [facility] Comment on above: Performed By: #### 1 0165, 6399 #### [facility] of [address], [address] [place] [address] Fence Builder: Elliot Polanco MD Platelets (Bld) [#/Vol] 263 10*3/uL Normal 140-400 [facility] Comment on above: Performed By: #### 1 0165, 6399 #### [facility] of [address], [address] [place] [address] Fence Builder: Elliot Polanco MD RBC (Bld) [#/Vol] 4.66 10*6/uL Normal 3.80-5.10 [facility] Comment on above: Performed By: #### 1 0165, 6399 #### [facility] [place] [address] Fence Builder: Elliot Polanco MD WBC (Bld) [#/Vol] 8.6 10*3/uL Normal 3.8-10.8 [facility] Comment on above: Performed By: #### 1 0165, 6399 #### [facility] [place] [address] Fence Builder: Elliot Polanco MD TSHon 09-26-2021 TSH Qn 3.87 m[IU]/L Normal [facility] Comment on above: Result Comment: Refe rence Range > or = 20 Years 0.40-4.50 Ranges First trimester 0.26-2.66 Second trimester 0.55-2.73 Third trimester 0.43-2.91 Performed By: #### 1 0165, 6399 #### [facility] [address] [facility], [address] [place] [address] Fence Builder: Elliot Polanco MD Coronavirus 2019on 0 COVID 19 Result STOCK TRACER Normal Negative for COVID19 (SARS CoV2) by PCR. [facility] Comment on above: Result Comment: Nega tive for This test was developed and its performance characteristics determined by [facility] [place]. This test has been authorized by FDA under an Emergency Use Authorization (EUA). This test has been validated in accordance with the FDA's Guidance Document Policy for Diagnostics Testing in Laboratories Certified to Perform High Complexity Testing under CLIA prior to Emergency use Authorization for Coronavirus Disease 2019 during the Public Health Emergency issued on August 26, 2019. COVID19 (SARS This test was developed and its performance characteristics determined by [facility] [place]. This test has been authorized by FDA under an Emergency Use Authorization (EUA). This test has been validated in accordance with the FDA's Guidance Document Policy for Diagnostics Testing in Laboratories Certified to Perform High Complexity Testing under CLIA prior to Emergency use Authorization for Coronavirus Disease 2019 during the Public Health Emergency issued on August 26, 2019. CoV2) by PCR. This test was developed and its performance characteristics determined by [facility] [place]. This test has been authorized by FDA under an Emergency Use Authorization (EUA). This test has been validated in accordance with the FDA's Guidance Document Policy for Diagnostics Testing in Laboratories Certified to Perform High Complexity Testing under CLIA prior to Emergency use Authorization for Coronavirus Disease 2019 during the Public Health Emergency issued on August 26, 2019. COVID 19 Source STOCK TRACER Normal [facility] Comment on above: Result Comment: Naso pharyngeal Corrected on 06/09 AT 2317: Previously reported as STOCK TRACER SWAB Swab Corrected on 06/09 AT 2317: Previously reported as STOCK TRACER SWAB Coronavirus 2019on 0 COVID 19 Result STOCK TRACER Normal Negative for COVID19 (SARS CoV2) by PCR. [facility] Comment on above: Result Comment: Nega tive for This test was developed and its performance characteristics determined by [facility] [place]. This test has been authorized by FDA under an Emergency Use Authorization (EUA). This test has been validated in accordance with the FDA's Guidance Document Policy for Diagnostics Testing in Laboratories Certified to Perform High Complexity Testing under CLIA prior to Emergency use Authorization for Coronavirus Disease 2019 during the Public Health Emergency issued on August 26, 2019. COVID19 (SARS This test was developed and its performance characteristics determined by [facility] [place]. This test has been authorized by FDA under an Emergency Use Authorization (EUA). This test has been validated in accordance with the FDA's Guidance Document Policy for Diagnostics Testing in Laboratories Certified to Perform High Complexity Testing under CLIA prior to Emergency use Authorization for Coronavirus Disease 2019 during the Public Health Emergency issued on August 26, 2019. CoV2) by PCR. This test was developed and its performance characteristics determined by [facility] [place]. This test has been authorized by FDA under an Emergency Use Authorization (EUA). This test has been validated in accordance with the FDA's Guidance Document Policy for Diagnostics Testing in Laboratories Certified to Perform High Complexity Testing under CLIA prior to Emergency use Authorization for Coronavirus Disease 2019 during the Public Health Emergency issued on August 26, 2019. Coronavirus 2019on 0 COVID 19 Source STOCK TRACER Normal [facility] Comment on above: Result Comment: Naso pharyngeal Corrected on 05/10 AT 1320: Previously reported as NASAL Swab Corrected on 05/10 AT 1320: Previously reported as NASAL Office Visit: [facility] 02-03-20 17 Documentation of current medications (procedure) Done Invalid Interpretation Code [facility] Work Phone: Fall risk assessment No [facility] Work Phone: Protein mass conc Done [facility] Work Phone: Lab Report: BNP,B-Type NATRI URETIC PEPTIDEon 06-03-2016 BNP 23.6 pg/mL 0-100 [facility] Work Phone: Lab Report: Basic Metabolic Profile (BMP)on 06-03-2016 Anion gap 8 mmol/L Invalid Interpretation Code 5-15 [facility] Work Phone: [phone] Anion gap molar conc 8 mmol/L 5-[address] [facility] Work Phone: [phone] BUN/Creatinine Ratio 10.6 RATIO 10-[address] [facility] Work Phone: [phone] Calcium 8.4 mg/dL Low 8.5-10.1 [facility] Work Phone: [phone] Chloride 104 mmol/L 98-107 [facility] Work Phone: [phone] CO2 27.0 mmol/L Invalid Interpretation Code 21.0-32.0 [facility] Work Phone: [phone] CO2 ppres (BldV) 27.0 mmol/L 21.0-32.0 [facility] Work Phone: [phone] Creatinine 1.04 mg/dL High 0.55-1.02 [facility] Work Phone: [phone] eGFR (non-black) 75 mL/min/{1.73_m2} Invalid Interpretation Code >60 [facility] Work Phone: [phone] eGFR (non-black) 62 mL/min/{1.73_m2} >60 [facility] Work Phone: [phone] EST GFR - AA 75 mL/min >60 [facility] Work Phone: [phone] Glucose 83 mg/dL Invalid Interpretation Code 70-110 [facility] Work Phone: [phone] Glucose mass conc 83 mg/dL 70-110 [facility] Work Phone: [phone] Potassium 3.5 mmol/L 3.5-5.1 [facility] Work Phone: [phone] Sodium 139 mmol/L 136-145 [facility] Work Phone: [phone] Urea nitrogen 11 mg/dL 7-18 [facility] Work Phone: [phone] Lab Report: Thyroid Stim Hor nena (TSH)on 06-03-2016 Thyroid stimulating hormone (TSH) 6.42 u[iU]/mL High 0.358-3.74 [facility] Work Phone: [phone] Office Visiton 06-03-2016 Documentation of current medications (procedure) Done Invalid Interpretation Code [facility] Work Phone: [phone] Documentation of current medications (procedure) T Invalid Interpretation Code [facility] [employer] Work Phone: [phone] Protein mass conc Done [facility] [employer] Work Phone: [phone] Protein mass conc T [facility] [employer] Work Phone: [phone] Replaced Document: Annmarie Crowley CG Observationson 06-03-2016 EKG QRS axis 3 deg [facility] Work Phone: [phone] electrocardiogram interpretation Sinus Rhythm - occasional ectopic ventricular beat Diffuse low voltage. ABNORMAL Invalid Interpretation Code [facility] [employer] Work Phone: [phone] GE use only - for [employer] import when terms are not otherwise specified 406 ms Invalid Interpretation Code [employer] Work Phone: [phone] Interpretation Sinus Rhythm - occasional ectopic ventricular beat Diffuse low voltage. ABNORMAL [facility] [employer] Work Phone: [phone] P Hunt 51 deg [facility] [employer] Work Phone: [phone] P wave axis, electrocardiogram 51 deg Invalid Interpretation Code [employer] Work Phone: [phone] [place] Interval 138 ms [employer] [employer] Work Phone: [phone] [place] interval, electrocardiogram 138 ms Invalid Interpretation Code [employer] Work Phone: [phone] Pulse (Heart Rate) 68 /min Invalid Interpretation Code [facility] [employer] Work Phone: [phone] QRS axis, electrocardiogram 3 deg Invalid Interpretation Code [facility] [employer] Work Phone: [phone] QRS Duration 94 ms [facility] [employer] Work Phone: [phone] QRS duration, electrocardiogram 94 ms Invalid Interpretation Code [facility] [employer] Work Phone: [phone] QT Interval new path ms [facility] [employer] Work Phone: [phone] QT interval, electrocardiogram new path ms Invalid Interpretation Code [facility] [employer] Work Phone: [phone] QTc Green 406 ms [facility] [employer] Work Phone: [phone] T Hunt 27 deg [facility] Work Phone: [phone] T wave axis, electrocardiogram 27 deg Invalid Interpretation Code [facility] Work Phone: [phone] Office Visiton 03-07-2014 Tobacco smoking status NHIS Never smoker [facility] Work Phone: [phone] Tobacco use CPHS Never smoker Invalid Interpretation Code [facility] Work Phone: [phone] Vital Signs Date Time Vital Sign Value Performing Clinician Bakari rodriguez 12-14-2024 08:34-0400 Body height 152.[address] Clement Michael MD Work Phone: [facility] 12-14-2024 08:34-0400 Body mass index (BMI) [Ratio] 25.4 kg/m2 Dr. Clement Michael MD Work Phone: [facility] 12-14-2024 08:34-0400 Body weight 58.[address] Clement Michael MD Work Phone: [facility] 11-17-2022 13:45-0400 Body height 152.[address] Clement Michael Work Phone: [facility] 02-02-2017 08:06-0400 BMI (Body Mass Index) 24.21 kg/m2 Flora Georges [facility] Work Phone: 02-02-2017 08:06-0400 BP Diastolic 72 mm[Hg] Flora Georges [facility] Work Phone: 02-02-2017 08:06-0400 BP Systolic 100 mm[Hg] Flora Georges [facility] Work Phone: 02-02-2017 08:06-0400 Height 152.4 cm Flora Georges [facility] Work Phone: 02-02-2017 08:06-0400 Pulse (Heart Rate) 64 /min Flora Georges [facility] Work Phone: 02-02-2017 08:06-0400 Respiratory Rate 16 /min Flora Georges [facility] Work Phone: 02-02-2017 08:06-0400 Weight 56.25 kg Flora Georges [facility] Work Phone: 06-03-2016 15:10-0500 Heart rate 68 /min Harjuliana DeFinsrinivas [facility] Work Phone: 06-03-2016 14:55-0500 BMI (Body Mass Index) 23.63 kg/m2 Harjuliana Foy [facility] Work Phone: 06-03-2016 14:55-0500 BP Diastolic 60 mm[Hg] Harumi DeFinis [facility] Work Phone: 06-03-2016 14:55-0500 BP Systolic 110 mm[Hg] Harumi DeFinis [facility] Work Phone: 06-03-2016 14:55-0500 BSA (Body Surface Area) 1.51 m2 Harumi DeFinis [facility] Work Phone: 06-03-2016 14:55-0500 Pulse (Heart Rate) 56 /min Harumi DeFinis [facility] Work Phone: 06-03-2016 14:55-0500 Respiratory Rate 20 /min Harumi DeFinis [facility] Work Phone: 06-03-2016 14:55-0500 Weight 54.89 kg Harjuliana DeFinis [facility] Work Phone: 12-16-2011 14:27-0400 Height 152.4 cm Harjuliana DeFinis [facility] Work Phone: Encounters Encounter Date Encounter Type Care Provider Facility Start: 01-31-2025 ambulatory Raghav Ngo Facility :[facility] Start: 01-02-2025 End: 01-02-[address] Raghav Ngo MD -[facility] Work Phone: Start: 01-02-2025 End: 01-02-[address] Clement Michael MD Work Phone: -[facility] Start: 12-27-2024 End: 12-27-[address] Clement Michael MD Work Phone: -[facility] Start: 12-27-2024 End: 12-27-[address] Raghav Ngo MD -[facility] Work Phone: Start: 12-27-2024 End: 12-27-2024 ambulatory Raghav [facility] Facility:[facility] Start: 12-14-2024 End: 12-14-[address] Raghav Ngo MD -[facility] Work Phone: Start: 12-14-2024 End: 12-14-[address] Clement Michael MD Work Phone: [facility] Work Phone: Start: 11-06-2024 End: 11-06-[address] Raghav Ngo MD -[facility] Work Phone: Start: 11-06-2024 End: 11-06-2024 ambulatory [facility] Facility:[facility] Start: 10-23-2024 End: 10-23-2024 ambulatory NU ALMANZAR [facility] Start: 10-05-2024 End: 10-05-[address] Raghav Ngo MD -[facility] Work Phone: Start: 10-05-2024 End: 10-05-2024 ambulatory [facility] Facility:[facility] Start: 09-28-2024 End: 09-28-2024 Emergency department patient visit DESMOND ZAMUDIO [facility] Start: 08-28-2024 End: 08-28-2024 ambulatory YVON PAN [facility] Start: 08-25-2024 End: 08-25-2024 ambulatory GRACIE TREJO [facility] Start: 08-23-2024 End: 08-23-2024 ambulatory GRACIE TREJO [facility] Start: 08-03-2024 End: 08-03-2024 ambulatory MIGUELINA ELKINS [facility] Start: 07-07-2024 End: 07-07-2024 ambulatory MIGUELINA STOCK TRACER [facility] Start: 06-25-2024 End: 06-25-2024 Emergency department patient visit MIGUELINA STOCK TRACER [facility] Start: 06-06-2024 End: 06-06-2024 ambulatory MIGUELINA STOCK TRACER [facility] Start: 05-19-2024 End: 05-19-2024 ambulatory MIGUELINA STOCK TRACER [facility] Start: 05-12-2024 End: 05-12-2024 ambulatory MIGUELINA STOCK TRACER [facility] Start: 05-01-2024 End: 05-01-2024 ambulatory Raghav Ngo Facility:[facility] Start: 04-20-2024 End: 04-20-2024 ambulatory MIGUELINA WICK [facility] Start: 02-26-2024 End: 02-27-2024 Emergency department patient visit MIGUELINA STOCK TRACER [facility] Start: 02-14-2024 End: 02-14-2024 [facility] Start: 11-24-2023 End: 11-24-2023 ambulatory NU TREJO [facility] Start: 12-30-2022 Non-patient / Non-visit Dr. Clement Michael Work Phone: [facility] Start: 12-30-2022 End: 12-30-[address] Clement Michael Work Phone: [facility] Work Phone: Start: 12-30-2022 End: 12-30-[address] Clement Michael Work Phone: [facility]-Pulmonary Services/Neurology Work Phone: Start: 11-19-2022 End: 11-19-[address] Clement Michael Work Phone: [facility] Work Phone: Procedures Date Procedure Procedure Detail Performing Clinician Start: 12-27-2024 MRI of joint of lower extremity Dr. Clement Michael MD Work Phone: Start: 11-06-2024 Plain X-ray of shoulder Dr. Clement bell MD Work Phone: Start: 10-05-2024 Plain x-ray of wrist Dr. Clement keita MD Work Phone: Start: 11-19-2022 Plain x-ray of hand Dr. Clement Michael Work Phone: Start: 02-02-2017 End: 02-02-2017 PREPARATION CENTER COORDINATOR Clement Estevez NP Work Phone: Start: 02-02-2017 End: 02-02-2017 Follow Up Appt 1 year Clement Estevez NP Work Phone: Start: 10-07-2016 End: 10-12-2016 Echocardiography Favian San MD Start: 06-03-2016 End: 06-03-2016 *BMP Favian San MD Start: 06-03-2016 End: 06-03-2016 BNP Favian San MD Start: 06-03-2016 End: 06-03-2016 Electrocardiogram, complete Favian San MD Start: 06-03-2016 End: 06-03-2016 Follow Up Appt 6 months Vianey Bello Start: 06-03-2016 End: 06-03-2016 MMM Favian San MD Start: 06-03-2016 End: 06-03-2016 Thyroid stimulating hormone (TSH) Favian San MD Start: 03-07-2014 End: 03-07-2014 PREPARATION CENTER COORDINATOR Favian San MD Start: 03-07-2014 End: 03-19-2014 Echocardiography Favian San MD Start: 03-07-2014 End: 03-07-2014 Electrocardiogram, complete Favian San MD Start: 03-07-2014 End: 03-07-2014 Follow Up Appt 1 year Favian San MD Start: 01-24-2013 End: 01-24-2013 PREPARATION CENTER COORDINATOR Favian San MD Start: 01-24-2013 End: 01-24-2013 Follow Up Appt 1 year Favian San MD Start: 12-16-2011 End: 03-07-2014 Echocardiography Favian San MD Start: 12-16-2011 End: 12-16-2011 Follow Up Appt 1 year Favian San MD H/O: tubal ligation H/O tubal ligation Dr Tony Michael Work Phone: History of cholecystectomy Histo ry of cholecystectomy Dr. Clement Michael Work Phone: Plan of Treatment Date Care Activity Detail Author Start: 02-03-2018 End: 02-03-2018 Appointment Appointment [facility] Work Phone: Start: 02-02-2017 End: 02-02-2017 Appointment Appointment [facility] Work Phone: Start: 02-02-2017 End: 02-02-2017 PREPARATION CENTER COORDINATOR PREPARATION CENTER COORDINATOR [facility] Work Phone: Start: 02-02-2017 End: 02-02-2017 Follow Up Appt 1 year Follow Up Appt 1 year [facility] Work Phone: Start: 12-02-2016 End: 12-02-2016 Appointment Appointment [facility] Work Phone: Start: 06-03-2016 End: 06-03-2016 *BMP *BMP [facility] Work Phone: Start: 06-03-2016 End: 06-03-2016 BNP *Brain Natriuretic Peptide BNP [facility] Work Phone: Start: 06-03-2016 End: 06-03-2016 Echocardiography Echocardiogram (complete) [facility] Work Phone: Start: 06-03-2016 End: 06-03-2016 Electrocardiogram, complete EKG (In office) [facility] Work Phone: Start: 06-03-2016 End: 06-03-2016 Follow Up Appt 6 months Follow Up Appt 6 months [facility] Work Phone: Start: 06-03-2016 End: 06-03-2016 MMM MMM [facility] Work Phone: Start: 06-03-2016 End: 06-03-2016 Thyroid stimulating hormone (TSH) *TSH [facility] Work Phone: Start: 03-07-2014 End: 03-07-2014 PREPARATION CENTER COORDINATOR PREPARATION CENTER COORDINATOR [facility] Work Phone: Start: 03-07-2014 End: 03-07-2014 Echocardiography Echocardiogram (complete) [facility] Work Phone: Start: 03-07-2014 End: 03-07-2014 Electrocardiogram, complete EKG (In office) [facility] Work Phone: Start: 03-07-2014 End: 03-07-2014 Follow Up Appt 1 year Follow Up Appt 1 year [facility] Work Phone: Start: 01-24-2013 End: 01-24-2013 PREPARATION CENTER COORDINATOR PREPARATION CENTER COORDINATOR [facility] Work Phone: Start: 01-24-2013 End: 01-24-2013 Follow Up Appt 1 year Follow Up Appt 1 year [facility] Work Phone: Start: 12-16-2011 End: 12-16-2011 Echocardiography Echocardiogram (complete) [facility] Work Phone: Start: 12-16-2011 End: 12-16-2011 Follow Up Appt 1 year Follow Up Appt 1 year [facility] Work Phone: Payers Date Payer Category Payer Self-pay [id number] 2016 Unknown [id number] 1975 Unknown [id number] 2.16.8 40.1.642122.3.579.2.651 1975 Unknown [id number] 2.16.8 40.1.226297.3.579.2.651 1975 Unknown [id number] 2.16.8 40.1.213840.3.579.2.651 1975 Unknown [id number] 2.16.8 40.1.845602.3.579.2.651 1975 Unknown [id number] 2.16.8 40.1.960105.3.579.2.651 1975 Unknown [id number] 2.16.8 40.1.629192.3.579.2.651 1975 Unknown [id number] 2.16.8 40.1.811513.3.579.2.651 1975 Unknown [id number] 2.16.8 40.1.367970.3.579.2.651 1975 Unknown [id number] 2.16.8 40.1.609065.3.579.2.651 1975 Unknown [id number] 2.16.8 40.1.269130.3.579.2.651 1975 Unknown [id number] 2.16.8 40.1.948074.3.579.2.651 1975 Unknown [id number] 2.16.8 40.1.196996.3.579.2.651 1975 Unknown [id number] 2.16.8 40.1.534814.3.579.2.651 1975 Unknown [id number] 2.16.8 40.1.977080.3.579.2.651 1975 Unknown [id number] 2.16.8 40.1.128313.3.579.2.651 Unknown [id number] Unknown [id number] 2.16.8 40.1.901275.3.579.2.462 Unknown [id number] 2.16.8 40.1.137334.3.579.2.462 Unknown [id number] 2.16.8 40.1.359416.3.579.2.462 Unknown [id number] 2.16.8 40.1.499038.3.579.2.462 Unknown [id number] 2.16.8 40.1.725067.3.579.2.462 Unknown [id number] 2.16.8 40.1.965284.3.579.2.462 Unknown [id number] 2.16.8 40.1.917506.3.579.2.462 Unknown [id number] 2.16.8 40.1.582958.3.579.2.462 Unknown [id number] 2.16.8 40.1.656224.3.579.2.462 Worker's Compensation [id number] Social History Date Type Detail Facility Start: [facility]22 [facility] Start: 1975 Sex Assigned At Female [facility] Start: 05-11-2023 [facility] (finding[facility] Progress note 01-02-2025 Note Date & Type Note Facility 01-02-2025 Progress note [facility] Evaluation note 10-05-2024 Note Date & Type Note Facility 10-05-2024 Evaluation note Diagnosis Onset Date Resolution Left wrist pain acute September 8:58am Left shoulder pain acute November 062024 8:30am Left shoulder pain acute November 262024 8:31am [facility] Work Phone: Evaluation note 10-05-2024 Note Date & Type Note Facility 10-05-2024 Evaluation note Diagnosis Onset Date Resolution Left wrist pain acute September 8:58am Left shoulder pain acute November 062024 8:30am Left shoulder pain acute November 262024 8:31am Left shoulder pain acute January 022024 8:08am Superior labrum uoeqopbf-qv-obigwpfxx (SLAP) tear of left shoulder acute January 02, 2025 8 :08am Tendinitis of left rotator cuff acute January 02, 2025 8 :08am [facility] Work Phone: Clinical Note 09-28-2024 Note Date & Type Note Facility 09-28-2024 Note Discharge Instructio ns Discharge Summary [address] [place] [address] [id number] 09/28/2024 Patient: ANANTH DAVEN[place] Sex: Female : 1975 Age: 49y Thank you for visiting [facility]. You have been evaluated today by Dani Sal D.O. for the following condition(s): Principal Diagnosis Multiple contusions to the left shoulder, left forearm, left wrist and left hip.No contusion to the left thumb, left index finger, left middle finger, left ring finger or left little finger. No left fingernail injury. INSTRUCTIONS Apply ice. Wear sling and splint. Do not work with left hand for four days. Follow-up with: Occupational Health - [facility], Occupational Health, Phone: [phone], [address] [facility], [place], [place] [address]. Follow up in four days. Call for an appointment. (use splint. Use your sling as needed. Do okois-ux-ldlqdm exercises 10 reps every hour while awake demonstrate. ice 15 minutes every 4 6 hours. return if any problems or concerns). You have been given the following additional information: Soft Tissue Bruise (Contusion) Patient Signature 1 of 4 Discharge Instructions Facility [employer] Date/Time General Instructions with ExitWriter [address] [place] [address] [id number] 09/28/2024 Patient: ANANTH DAVEN[place] Sex: Female : 1975 Age: 49y Thank you for visiting [facility]. You have been evaluated today by Dani Sal D.O. for the following condition(s): Principal Diagnosis Multiple contusions to the left shoulder, left forearm, left wrist and left hip.No contusion to the left thumb, left index finger, left middle finger, left ring finger or left little finger. No left fingernail injury. INSTRUCTIONS Apply ice. Wear sling and splint. Do not work with left hand for four days. Follow-up with: Occupational Health [facility], Occupational Health, Phone: [phone], [address] [facility], [place], [place] [address]. Follow up in four days. Call for an appointment. (use splint. Use your sling as needed. Do brbds-sp-fxnpfi exercises 10 reps every hour while awake demonstrate. ice 15 minutes every 4 6 hours. return if any problems or concerns). ADDITIONAL INFORMATION Soft Tissue Bruise (Contusion) You have a bruise (contusion). There is swelling and some bleeding under the skin. This injury generally takes a few days to a few weeks to heal. During that time, the bruise will typically change in color from reddish, to purple-blue, to greenish-yellow, then to yellow-brown. 2 of 4 Discharge Instructions Home care Elevate the injured area to reduce pain and swelling. As much as possible, sit or lie down with the injured area raised about the level of your heart. This is especially important during the first 48 hours. Ice the injured area to help reduce pain and swelling. Wrap an ice pack in a thin towel. Apply to the bruised area for 20 minutes every 1 to 2 hours the first day. Continue this 3 to 4 times a day until the pain and swelling goes away. You can make an ice pack by placing ice cubes in a plastic bag. Unless another medicine was prescribed, you can take acetaminophen, ibuprofen, or naproxen to control pain. Talk with your doctor before using these medicines if you have chronic liver or kidney disease or ever had a stomach ulcer or digestive bleeding. Follow-up care Follow up with your healthcare provider, or as advised. Call if you are not better in 1 to 2 weeks. When to seek medical advice Call your healthcare provider right away if you have any of the following: Increased pain or swelling Bruise is on an arm or leg and arm or leg becomes cold, blue, numb or tingly Signs of infection: Warmth, drainage, or increased redness or pain around the contusion Inability to move the injured area or body part Bruise is near your eye and you have problems with your eyesight or eye Frequent bruising for unknown reasons Activities Restrictions [facility] [address] [place] [address] [id number] 09/28/2024 Patient: ANANTH DAVENPORT Sex: Female : 1975 Age: 49y You have been given the following instructions regarding activity, work, and/or school. Do not work with left hand for four days. 3 of 4 Discharge Instructions Facility [employer] 4 of 4 [facility] Clinical Note 08-31-2024 Note Date & Type Note Facility 08-31-2024 [facility] HISTORY & PHYSICAL NAME ACCOUNT SEX AGE ADMIT DISCHARGE PT MED. RECORD# NUMBER DATE DATE TYPE ANANTH [place] [id number] F 49 08/28/24 2 A [id number] [facility] DATE OF : [birth year] DICTATING PHYSICIAN: Yvon Pan CHIEF COMPLAINT: Globus sensation in throat. HISTORY OF PRESENT ILLNESS: Ms. Davenport is a 49-year-old female that presents with persistent globus sensation in her throat. She describes it as phlegm as she is able to clear it with either coughing and/or clearing her throat. She does have mild GERD that is controlled by a PPI. She denies any dysphagia or odynophagia. PAST MEDICAL HISTORY: Heart disease, reflux, and rheumatoid arthritis. MEDICATIONS: See MAR. ALLERGIES: No known drug allergies. SOCIAL HISTORY: Negative x3. REVIEW OF SYSTEMS: Ten system review of systems are negative. PHYSICAL EXAMINATION GENERAL APPEARANCE: In general, she is alert, oriented, and appropriate with no acute distress. VITAL SIGNS: On exam, she is afebrile. Vital signs stable, within normal limits. HEENT: Reveals that her neck is supple. Trachea is midline and nontender. LUNGS: Lungs are clear to auscultation bilaterally. HEART: Regular rate and rhythm. ABDOMEN: Soft, nontender, and nondistended. IMPRESSION: This is a 49-year-old female with persisting globus sensation in her esophagus. PLAN: We discussed the risks, benefits, and alternatives of EGD and all the indicated procedures. All questions were answered, and she voiced understanding and agreement with the plan and procedure. Page 1 of 2 ANANTH [place] History & Physical ANANTH [place] :1975 Dictated By: Yovn Pan MD 08/28/24 09:20 JOB #: [id number] Transcribed By: am 08/28/24 10:11 Electronically signed by: E-SIGN DR. PAN 08/31/24 10:18 Update to H&P: [ ] No changes: I have examined the patient and reviewed the H&P and there are no changes. [ ] As previously dictated with the following changes: PHYSICIAN SIGNATURE: TIME: DATE: Page 2 of 2 ANANTH [place] History & Physical [facility] Clinical Note 06-25-2024 Note Date & Type Note Facility 06-25-2024 Note Discharge Instructio ns Discharge Summary [address] [address] [id number] 06/25/2024 Patient: ANANTH DAVENPORT Sex: Female : 1975 Age: 49y Thank you for visiting [facility]. You have been evaluated today by Raymond Rendon D.O. for the following condition(s): Principal Diagnosis Gastroenteritis. INSTRUCTIONS Prescription Medications: ondansetron 4 mg disintegrating tablet: Take 1 tablet on tongue every eight hours for nausea/vomiting for 5 days, dispense 15 tablet. Refills 0. Pharmacy: [facility] [id number] [place] [address]. dicyclomine 10 mg capsule: 20 mg every eight hours as needed for pain for 5 days, dispense 30 capsule. Refills 0. Pharmacy: [facility] [id number] [place] [address]. Follow-up: Follow up with your healthcare provider in two days. Call for an appointment. You have been given the following additional information: Noninfectious Gastroenteritis (Adult) 1 of 6 Discharge Instructions Patient Signature Facility [employer] Date/Time General Instructions with ExitWriter [address] [address] [id number] 06/25/2024 Patient: ANANTH DAVENPORT Sex: Female : 1975 Age: 49y Thank you for visiting [facility]. You have been evaluated today by Raymond Rendon D.O. for the following condition(s): Principal Diagnosis Gastroenteritis. INSTRUCTIONS Prescription Medications: ondansetron 4 mg disintegrating tablet: Take 1 tablet on tongue every eight hours for nausea/vomiting for 5 days, dispense 15 tablet. Refills 0. Pharmacy: [facility] [id number] [place] [address]. dicyclomine 10 mg capsule: 20 mg every eight hours as needed for pain for 5 days, dispense 30 capsule. Refills 0. Pharmacy: [facility] [id number] [place] [address]. Follow-up: Follow up with your healthcare provider in two days. Call for an appointment. 2 of 6 Discharge Instructions ADDITIONAL INFORMATION Noninfectious Gastroenteritis (Adult) Gastroenteritis can cause nausea, vomiting, diarrhea, and cramping in the belly. This may occur from food sensitivity, inflammation of your gastrointestinal tract, medicines, stress, or other causes not related to infection. Your symptoms will usually last from 1 to 3 days, but can last longer. Antibiotics are not effective, but simple home treatment will be helpful. Home care Medicine You may use acetaminophen or NSAID medicines like ibuprofen or naproxen to control fever, unless another medicine is prescribed. (Note: If you have chronic liver or kidney disease, or ever had a stomach ulcer or gastrointestinaI bleeding, talk with your healthcare provider before using these medicines.) Aspirin should never be used in anyone under 18 years of age who is ill with a fever. It may cause severe liver damage. Don't increase your NSAID medicines if you are already taking these medicines for another 3 of 6 Discharge Instructions condition (like arthritis). Don't use NSAIDS if you are on aspirin (such as for heart disease, or after a stroke). If medicines for diarrhea or vomiting are prescribed, take only as directed. General care and preventing spread of the illness If symptoms are severe, rest at home for the next 24 hours or until you feel better. Hand washing with soap and water is the best way to prevent the spread of infection. Wash your hands after touching anyone who is sick. Wash your hands after using the toilet and before meals. Clean the toilet after each use. Caffeine, tobacco, and alcohol can make your diarrhea, cramping, and pain worse. Diet Water and clear liquids are important so you do not get dehydrated. Drink a small amount at a time. Don't force yourself to eat, especially if you have cramps, vomiting, or diarrhea. When you finally decide to start eating, do not eat large amounts at a time, even if you are hungry. If you eat, avoid fatty, greasy, spicy, or fried foods. Don't eat dairy products if you have diarrhea; they can make the diarrhea worse. During the first 24 hours (the first full day), follow the diet below: Beverages: Water, clear liquids, soft drinks without caffeine, like tennille fabiana; mineral water (plain or flavored); decaffeinated tea and coffee. Soups: Clear broth, consomm, and bouillon sports drinks aren't a good choice because they have too much sugar and not enough electrolytes. In this case, commercially available products called oral rehydration solutions are best. Desserts: Plain gelatin, ice pops, and fruit juice bars (more content not included)... [facility] Procedure note 12-30-2022 Note Date & Type Note Facility 12-30-[address] [facility] Evaluation note Note Date & Type Note Facility Evaluation note Diagnosis Onset Date Right carpal tunnel syndrome acute Right hand pain acute [facility] Work Phone: Progress note Note Date & Type Note Facility Progress note Note Date/Time January 02, 2025 8:27am [facility] [address] [place] [id number] OFFICE VISIT Date of Service: 01/02/25 MR#: [id number] Acct: [id number] Name: ANANTH DAVENPORT Rep #: [id number] : 1975 Provider: Dr. Jackson Ngo MD Age/Sex: 49/F Location: [facility].JAVIER Status: Signed Intake Vital Signs 12/14/24 08:34 Height 5 ft Weight: 130 lb BMI 25.4 Intake Visit Reasons: LEFT SHOULDER Chief Complaint: MRI review Allergies Latex, Natural Rubber Adverse Reaction (Intermediate, Verified 01/02/25 08:14) rash/itchy Medications ?Medication ?Instructions ?Recorded ?Confirmed ?Type levothyroxine 50 mcg capsule 50 mcg PO DAILY 02/07/21 01/02/25 History folic acid 1 mg tablet 1 mg PO QWEEK 11/19/2201/02 History methotrexate sodium 2.5 mg tablet 2.5 mg PO QWEEK 10/2701/02/25 History famotidine 40 mg tablet 40 mg PO QHS 10/05/24 History lansoprazole 30 mg capsule,delayed 30 mg PO BID 01/02/25 History release acetaminophen 325 mg tablet 325 mg PO ONCE PRN 5 01/02/25 History (Tylenol) PFSH Medical History Superior labrum xsqqsaik-wn-whcgptdlf (SLAP) tear of left shoulder Tendinitis of left rotator cuff Left shoulder pain Left wrist pain Left lateral epicondylitis Tendinitis of extensor tendon of left hand Right carpal tunnel syndrome Right hand pain Aortic valve insufficiency Surgical History H/O arthroscopy of right knee History of cholecystectomy History of nephrectomy H/O tubal ligation Family History Brother Heart disease Mother Cancer Arthritis Father Hypertension Social History Smoking Status: Never smoker alcohol intake: never HPI LEFT SHOULDER Details: This documentation accurately reflects the service provided and the decisions made by me, Dr. Raghav Ngo MD 01/02/25 0802. Part of today?s visit was documented by [ ], acting as scribe. ANANTH DAVENPORT is a 49 year old F here today for follow-up left shoulder MRI. Did have temporary relief with the injection. Not interested in PT. 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 Supplemental Info [facility] Services [address] [place], [place] [id number] Upper Ext Joint Only(Routine) MR#: [id number] Acct: [id number] Name: ANANTH DAVENPORT Rep #: [id number] : 1975 F 49 From: Julian Cortes MD PCP: RICCO Epperson Status: REG CLI Study: Upper Ext Joint Only(Routine) Date of Exam: 12/27/24 Exam# [id number] Ordering Dr: Raghav Ngo MD PROCEDURE: UPPER EXT JOINT ONLY(ROUTINE) 12/27/2024 REASON FOR EXAM: PAIN TECHNIQUE: UPPER EXT JOINT ONLY(ROUTINE) Multiplanar and multisequence images were obtained without IV contrast administration. COMPARISON: COMPARISON: November 06, 2024 x-ray FINDINGS: Bone Marrow: There is no bony contusion or occult fracture. Rotator cuff: There is no muscular atrophy. There is mild distal supraspinatus tendinopathy without tear. The infraspinatus, subscapularis, and teres minor appear intact. AC joint: The AC joint is aligned. There is no evidence of AC joint separation. There is a type 2 acromion. Labrum: There is a tear of the labrum from the 10 o'clock 2 o'clock position including the biceps tendon anchor. There is a paralabral cyst in the 12 o'clock position measuring 0.5 by 0.25 cm. There is aparalabral cyst at the anterior labral margin measuring 1.0 by 0.6 cm. Biceps: The biceps tendon is present in the biceps tendon groove and appears intact. Effusion: There is no significant joint effusion. There is a trace amount of fluid in the subacromial subdeltoid bursa. MRI/Upper Ext Joint Only(Routine) IMPRESSION: There is mild distal supraspinatus tendinopathy without tear. There is a tear of the labrum from the 10 o'clock 2 o'clock position including the biceps tendon anchor. There is a paralabral cyst in the 12 o'clock position measuring 0.5 by 0.25 cm. There is a paralabral cyst at the anterior labral margin measuring 1.0 by 0.6 cm. There is a trace amount of fluid in the subacromial subdeltoid bursa. Reading Location: [facility] independently reviewed the imaging. Concur with radiologist report. Coding Level of Care Code Off vis,est,level 4 Diagnoses Left shoulder pain M25.512 Tendinitis of left rotator cuff M75.82 Superior labrum uibwymmy-ch-ntsxzbqac (SLAP) tear of left shoulder S43.432A Assessment and Plan Assessment and Plan (1) Left shoulder pain: Status: Acute Plan: 49 yr F with L shoulder MRI showing mild distal supraspinatus tendinopathy without tear, SLAP tear. There is a paralabral cyst in the 12 o'clock position measuring 0.5 by 0.25 cm. There is a paralabral cyst at the anterior labral margin measuring 1.0 by 0.6 cm. There is a trace amount of fluid in the subacromial subdeltoid bursa. Discussed pros and cons risks and benefits of nonoperative management versus surgery. Surgery would be in the form of a left shoulder arthroscopy subacromial decompression biceps tenodesis. Patient understands wished to have surgery that would be 2 weeks in a sling 6 weeks before going back to any significant lifting and up to 3 months before full duties at work. Patient understands signed the consent form for surgery. 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 Patient counselled on non-operative and operative means of treating shoulder pain. Conservative options include but not limited to: 1. Rest and Activity Modification: Giving your shoulder time to heal by avoidingmovements that cause pain can help. This may involve limiting overhead activities or heavy lifting. 2. Physical Therapy: A physical therapist can guide you through exercises that strengthen the muscles around the shoulder, improve flexibility, and reduce strain on the rotator cuff tendon. 3. Ice and Heat Therapy: Applying ice to the shoulder can help reduce swelling and pain, especially after activity. Heat can be helpful to relax tense muscles and improve blood flow before exercises. 4. Anti-Inflammatory Medications: Apbo-tvr-yisjngr medications like ibuprofen ornaproxen can help reduce pain and inflammation in the tendon. 5. Corticosteroid Injections: If the pain is more severe, a steroid injection can reduce inflammation in the shoulder and provide relief for a longer period. 6. Platelet-Rich Plasma (PRP) Injection: This treatment involves using your own blood to promote healing in the tendon. The plasma is rich in growth factors that can encourage tissue repair. 7. TENS (Transcutaneous Electrical Nerve Stimulation): This therapy uses a smallelectrical current to help manage pain and promote healing by stimulating nerves. (2) Tendinitis of left rotator cuff: Status: Acute (3) Superior labrum wdgnrhfz-uc-nkyphkilv (SLAP) tear of left shoulder: Status: Acute Ortho Exam General General: Yes no acute distress Neurologic: Yes alert and Yes oriented x3 Psychologic: Yes reasonable and appropriate 01/02/25 5776 <Electronically signed by Raghav zhang MD> Date _ Raghav Batista Signature: Date (if applicable) CC: ~ [facility] Work Phone: Reason for referral (narrative) Note Date & Type Note Facility Reason for referral (narrative) No reason for referral information available [facility] Work Phone: Summary Purpose Family History No Family History Records Found Relationship Condition Age at Onset Recorded Date/T daljit brother Cardiac disease Unknown mother Malignant neoplasm Unknown Arthritis Unknown father Hypertension Unknown Advance Directives No Advanced Directives Records FoundNo Advanced Directives Records FoundNo Advanced Directives Records FoundNo Advanced Directives Records FoundNo Advanced Directives Records Found Chief Complaint and Reason for Visit Chief Complaint RIGHT HAND RM 3 CARPAL TUNNEL SYNDROME CARPAL TUNNEL SYNDROME Reason for Visit Right carpal tunnel syndrome Right hand pain Chief Complaint Admit Date LEFT SHOULDER/HAND October 05, 2024 8:5 8am Room October 05, 2024 9:3 0am LEFT SHOULDER November 06, 2024 8:30a m room 1 November 06, 2024 8:50a m LEFT SHOULDER December 14, 2024 8:31 am Reason for Visit Admit Date Left wrist pain October 05, 2024 8:5 8am Left shoulder pain November 06, 2024 8:30a m Left shoulder pain December 14, 2024 8:31 am Chief Complaint Admit Date LEFT SHOULDER/HAND October 05, 2024 8:5 8am Room 5 October 05, 2024 9:3 0am LEFT SHOULDER November 06, 2024 8:30a m room November 06, 2024 8:50a m LEFT SHOULDER December 14, 2024 8:31 am Pain December 27, 2024 9:29a m LEFT SHOULDER January 02, 2025 8:08a m Reason for Visit Admit Date Left wrist pain October 05, 2024 8:5 8am Left shoulder pain November 06, 2024 8:30a m Left shoulder pain December 14, 2024 8:31 am Left shoulder pain January 02, 2025 8:08a m Superior labrum anterior-to- posterior (SLAP) tear of left shoulder January 02, 2025 8:08am Tendinitis of left rotator cuff December 8:08am Additional Source Comments INFORMATION SOURCE (unrecogn ized section and content) DATE CREATED AUTHOR 06/11/2020 [facility] DATE CREATED AUTHOR AUTHOR'S ORGANIZ ATION 07/11/2022 [facility] DATE CREATED AUTHOR AUTHOR'S ORGANIZ ATION 08/25/2024 [facility] DATE CREATED AUTHOR AUTHOR'S ORGANIZ ATION 10/24/2024 [facility] DATE CREATED AUTHOR AUTHOR'S ORGANIZ ATION 01/22/2025 [facility] Care Teams (unrecognized sec tion and content) Team Status: Active Member Role Status Dates Dr. Clement Michael MD Family Provider Active Dr. Clement Michael MD Primary Care Provider Active Team Status: Inactive Member Role Status Dates Dr. Clement Michael MD Primary Care Provider, Refer ring Provider Active Raghav Ngo MD Attending Provider Active Team Status: Inactive Member Role Status Dates Dr. Clement Michael MD Primary Care Provider Active Dr. Favian San MD Attending Provider Active Team Status: Active Member Role Status Dates Dr. Clement Michael MD Primary Care Provider Active Raghav Ngo MD Referring Provider, Other Provider Active Dr. Edda Kilpatrick MD Attending Provider Active Team Status: Inactive Member Role Status Dates Dr. Clement Michael MD Primary Care Provider Active Raghav Ngo MD Attending Provider, Referring Prov ider Active Team Status: Inactive Member Role Status Dates Dr. Clement Michael MD Primary Care Provider Active Start: October 05, 2024 End: October 05, 2024 Dr. Clement Michael MD Referring Provider Active Start: October 05, 2024 End: October 05, 2024 Raghav Ngo MD Attending Provider Active St art: October 05, 2024 End: October 05, 2024 Team Status: Inactive Member Role Status Dates Dr. Clement Michael MD Primary Care Provider Active Start: October 05, 2024 End: October 05, 2024 Dr. Favian San MD Attending Provider Active S tart: October 05, 2024 End: October 05, 2024 Team Status: Inactive Member Role Status Dates Dr. Clement Michael MD Primary Care Provider Active Start: November 06, 2024 End: November 06, 2024 Dr. Clement Michael MD Referring Provider Active Start: November 06, 2024 End: November 06, 2024 Raghav Ngo MD Attending Provider Active St art: November 06, 2024 End: November 06, 2024 Team Status: Inactive Member Role Status Dates Dr. Clement Michael MD Primary Care Provider Active Start: November 06, 2024 End: November 06, 2024 Dr. Favian San MD Attending Provider Active S tart: November 06, 2024 End: November 06, 2024 Team Status: Inactive Member Role Status Dates Dr. Clement Michael MD Primary Care Provider Active Start: December 14, 2024 End: December 14, 2024 Dr. Clement Michael MD Referring Provider Active Start: December 14, 2024 End: December 14, 2024 Raghav Ngo MD Attending Provider Active St art: December 14, 2024 End: December 14, 2024 Team Status: Active Member Role/Relationship Status Dates Desmond Zamudio STOCK TRACER, STOCK TRACER-C Primary Care Provider Active Team Status: Inactive Member Role/Relationship Status Dates Dr. Clement Michael MD Primary Care Provider Active Start: October 05, 2024 End: October 05, 2024 Dr. Clement Michael MD Referring Provider Active Start: October 05, 2024 End: October 05, 2024 Raghav Ngo MD Attending Provider Active St art: October 05, 2024 End: October 05, 2024 Team Status: Inactive Member Role/Relationship Status Dates Dr. Clement Michael MD Primary Care Provider Active Start: October 05, 2024 End: October 05, 2024 Dr. Favian San MD Attending Provider Active S tart: October 05, 2024 End: October 05, 2024 Team Status: Inactive Member Role/Relationship Status Dates Dr. Clement Michael MD Primary Care Provider Active Start: November 06, 2024 End: November 06, 2024 Dr. Clement Michael MD Referring Provider Active Start: November 06, 2024 End: November 06, 2024 Raghav Ngo MD Attending Provider Active St art: November 06, 2024 End: November 06, 2024 Team Status: Inactive Member Role/Relationship Status Dates Dr. Clement Michael MD Primary Care Provider Active Start: November 06, 2024 End: November 06, 2024 Dr. Favian San MD Attending Provider Active S tart: November 06, 2024 End: November 06, 2024 Team Status: Inactive Member Role/Relationship Status Dates Dr. Clement Michael MD Primary Care Provider Active Start: December 14, 2024 End: December 14, 2024 Dr. Clement Michael MD Referring Provider Active Start: December 14, 2024 End: December 14, 2024 Raghav Ngo MD Attending Provider Active St art: December 14, 2024 End: December 14, 2024 Team Status: Active Member Role/Relationship Status Dates Raghav Ngo MD Attending Provider Active St art: December 27, 2024 Raghav Ngo MD Referring Provider Active St art: December 27, 2024 Desmond Zamudio NP, STOCK TRACER-C Primary Care Provider Active Start: December 27, 2024 Team Status: Inactive Member Role/Relationship Status Dates Desmond Zamudio NP, STOCK TRACER-C Primary Care Provider Active Start: January 02, 2025 End: January 02, 2025 Desmond Zamudio NP, STOCK TRACER-C Referring Provider Active Start: January 02, 2025 End: January 02, 2025 Raghav gNo MD Attending Provider Active St art: January 02, 2025 End: January 02, 2025 Team Status: Inactive Member Role/Relationship Status Dates Raghav Ngo MD Attending Provider Active St art: December 27, 2024 End: December 27, 2024 Raghav Ngo MD Referring Provider Active St art: December 27, 2024 End: December 27, 2024 Desmond Zamudio NP, STOCK TRACER-C Primary Care Provider Active Start: December 27, 2024 End: December 27, 2024 Goals (unrecognized section and content) Goals may be documented in a n alternate sectionGoals may be documented in an alternate sectionGoals may be documented in an alternate sectionGoals may be documented in an alternate section FOR RECORDS PERTAINING TO PATIENTS WHO ARE OR HAVE BEEN ENROLLED IN A CHEMICAL DEPENDENCY/SUBSTANCEABUSE PROGRAM, SOME INFORMATION MAY BE OMITTED. This clinical summary was aggregated from multiple sources. Caution should be exercised in using it in the provision of clinical care. This summary normalizes information from multiple sources, and as a consequence, information in this document may materially change the coding, format and clinical context of patient data. In addition, data may be omitted in some cases. CLINICAL DECISIONS SHOULD BE BASED ON THE PRIMARY CLINICAL RECORDS. [facility]. provides no warranty or guarantee of the accuracy or completeness of information in this document.
[2025-01-31] MEDS: Lactated Ringers 1,000 ML 15 ML IV (07:05)
--- NOTE | 2025-01-31 07:09 | PCM.HP.STD ---
HPI - General HPI Narrative ANANTH CHASE, is a 49 F who presents for left shoulder arthroscopy subacromial decompression biceps tenodesis. no change to h and p. rab, post op instructions, and narcotic counselling. ok to proceed. no further questions or concerns. MR#: [id number] Acct: [id number] Name: ANANTH CHASE Rep #: [id number] : 1975 Provider: Dr. Raghav Ngo MD Age/Sex: 49/F Location: [facility] [place]IER Status: Signed Intake Vital Signs 12/15/2507:34 Height 5 ft Weight: 130 lb BMI 25.4 Intake Visit Reasons: LEFT SHOULDER Chief Complaint: MRI review Allergies Latex, Natural Rubber Adverse Reaction (Intermediate, Verified 01/02/25 08:14) rash/itchy Medications ?Medication ?Instructions ?Recorded ?Confirmed ?Type levothyroxine 50 mcg capsule 50 mcg PO DAILY 02/07/21 01/02/25 History folic acid 1 mg tablet 1 mg PO QWEEK 11/19/22 01/02/25 History methotrexate sodium 2.5 mg tablet 2.5 mg PO QWEEK 11/19/22 01/02/25 History famotidine 40 mg tablet 40 mg PO QHS 10/05/24 01/02/25 History lansoprazole 30 mg capsule,delayed 30 mg PO BID 10/05/24 01/02/25 History release acetaminophen 325 mg tablet 325 mg PO ONCE PRN 11/06/24 01/02/25 History (Tylenol) PFSH Medical History Superior labrum fzpcjjdg-po-hhlhkjohv (SLAP) tear of left shoulder Tendinitis of left rotator cuff Left shoulder pain Left wrist pain Left lateral epicondylitis Tendinitis of extensor tendon of left hand Right carpal tunnel syndrome Right hand pain Aortic valve insufficiency Surgical History H/O arthroscopy of right knee History of cholecystectomy History of nephrectomy H/O tubal ligation Family History Brother Heart diseaseMother Cancer ArthritisFather Hypertension Social History Smoking Status: Never smoker alcohol intake: never HPI LEFT SHOULDER Details: This documentation accurately reflects the service provided and the decisions made by me, Dr. Raghav Ngo MD 01/02/25 0802. Part of today?s visit was documented by [ ], acting as scribe. ANANTH CHASE is a 49 year old F here today for follow-up left shoulder MRI. Did have temporary relief with the injection. Not interested in PT. Works many hours in [employer] doing lifting. Supplemental Info [facility] [address] [place] [address] Upper Ext Joint Only(Routine) MR#: [id number] Acct: [id number] Name: ANANTH CHASE Rep #: [id number] : 1975 F 49 From: Julian Cortes MD PCP: RICCO Epperson Status: REG CLI Study: Upper Ext Joint Only(Routine) Date of Exam: 12/27/24 Exam# [id number] Ordering Dr: Raghav Ngo MD PROCEDURE: UPPER EXT JOINT ONLY(ROUTINE) 12/27/2024 REASON FOR EXAM: PAIN TECHNIQUE: UPPER EXT JOINT ONLY(ROUTINE) Multiplanar and multisequence images were obtained without IV contrast administration. COMPARISON: COMPARISON: November 06, 2024 x-ray FINDINGS: Bone Marrow: There is no bony contusion or occult fracture. Rotator cuff: There is no muscular atrophy. There is mild distal supraspinatus tendinopathy without tear. The infraspinatus, subscapularis, and teres minor appear intact. AC joint: The AC joint is aligned. There is no evidence of AC joint separation. There is a type 2 acromion. Labrum: There is a tear of the labrum from the 10 o'clock 2 o'clock position including the biceps tendon anchor. There is a paralabral cyst in the 12 o'clock position measuring 0.5 by 0.25 cm. There is a paralabral cyst at the anterior labral margin measuring 1.0 by 0.6 cm. Biceps: The biceps tendon is present in the biceps tendon groove and appears intact. Effusion: There is no significant joint effusion. There is a trace amount of fluid in the subacromial subdeltoid bursa. MRI/Upper Ext Joint Only(Routine) IMPRESSION: There is mild distal supraspinatus tendinopathy without tear. There is a tear of the labrum from the 10 o'clock 2 o'clock position including the biceps tendon anchor. There is a paralabral cyst in the 12 o'clock position measuring 0.5 by 0.25 cm. There is a paralabral cyst at the anterior labral margin measuring 1.0 by 0.6 cm. There is a trace amount of fluid in the subacromial subdeltoid bursa. Reading Location: [facility] Adams independently reviewed the imaging. Concur with radiologist report. Coding Level of Care Code Off vis,est,level 4 Diagnoses Left shoulder pain M25.512 Tendinitis of left rotator cuff M75.82 Superior labrum ogohhqke-ee-qzkmzawqt (SLAP) tear of left shoulder S43.432A Assessment and Plan Assessment and Plan (1) Left shoulder pain: Status: Acute Plan: 49 yr F with L shoulder MRI showing mild distal supraspinatus tendinopathy without tear, SLAP tear. There is a paralabral cyst in the 12 o'clock position measuring 0.5 by 0.25 cm. There is a paralabral cyst at the anterior labral margin measuring 1.0 by 0.6 cm. There is a trace amount of fluid in the subacromial subdeltoid bursa. Discussed pros and cons risks and benefits of nonoperative management versus surgery. Surgery would be in the form of a left shoulder arthroscopy subacromial decompression biceps tenodesis. Patient understands wished to have surgery that would be 2 weeks in a sling 6 weeks before going back to any significant lifting and up to 3 months before full duties at work. Patient understands signed the consent form for surgery. 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 Patient counselled on non-operative and operative means of treating shoulder pain. Conservative options include but not limited to: 1. Rest and Activity Modification: Giving your shoulder time to heal by avoiding movements that cause pain can help. This may involve limiting overhead activities or heavy lifting. 2. Physical Therapy: A physical therapist can guide you through exercises that strengthen the muscles around the shoulder, improve flexibility, and reduce strain on the rotator cuff tendon. 3. Ice and Heat Therapy: Applying ice to the shoulder can help reduce swelling and pain, especially after activity. Heat can be helpful to relax tense muscles and improve blood flow before exercises. 4. Anti-Inflammatory Medications: Tuxy-kyg-nhbbvax medications like ibuprofen or naproxen can help reduce pain and inflammation in the tendon. 5. Corticosteroid Injections: If the pain is more severe, a steroid injection can reduce inflammation in the shoulder and provide relief for a longer period. 6. Platelet-Rich Plasma (PRP) Injection: This treatment involves using your own blood to promote healing in the tendon. The plasma is rich in growth factors that can encourage tissue repair. 7. TENS (Transcutaneous Electrical Nerve Stimulation): This therapy uses a small electrical current to help manage pain and promote healing by stimulating nerves. (2) Tendinitis of left rotator cuff: Status: Acute (3) Superior labrum ujdllqof-yz-vcgelnueq (SLAP) tear of left shoulder: Status: Acute Ortho Exam General General: Yes no acute distress Neurologic: Yes alert and Yes oriented x3 Psychologic: Yes reasonable and appropriate [facility] Medical History (Updated 01/17/25 @ 10:23 by Olivia Mi) Wears dentures Wears contact lenses Wears glasses History of steroid therapy Thyroid disease Rheumatoid arthritis Arthritis Back pain Gastric reflux Hoarseness Cardiology follow-up encounter Superior labrum oxygojja-hm-pnyuntujs (SLAP) tear of left shoulder Tendinitis of left rotator cuff Left shoulder pain Left wrist pain Left lateral epicondylitis Tendinitis of extensor tendon of left hand Right carpal tunnel syndrome Right hand pain Aortic valve insufficiency Home Medications ?Medication ?Instructions ?Recorded ?Last Taken ?Type levothyroxine 50 mcg capsule 50 mcg PO DAILY 02/07/21 01/30/25 History folic acid 1 mg tablet 1 mg PO BID 11/19/22 01/30/25 History methotrexate sodium 2.5 mg tablet 20 mg PO QWEEK 11/19/22 Unknown History famotidine 40 mg tablet 40 mg PO QHS 10/05/24 01/31/25 History lansoprazole 30 mg capsule,delayed 30 mg PO DAILY 10/05/24 01/30/25 History release acetaminophen 325 mg tablet 325 mg PO ONCE PRN pain 11/06/24 01/30/25 History (Tylenol) hydroxychloroquine 200 mg tablet 300 mg PO DAILY 01/17/25 01/30/25 History prednisone 10 mg tablet 10 mg PO DAILY PRN [employer]ARE [employer] 01/17/25 Unknown History tramadol 50 mg tablet 50 mg PO BID PRN PRN pain 01/17/25 01/28/25 History Allergy/AdvReac Type Severity Reaction Status Date / Time Latex, Natural Rubber AdvReac Intermediate rash/itchy Verified 01/31/25 06:46 Family History Brother Heart disease Mother Cancer Arthritis Father Hypertension Surgical History (Updated 01/17/25 @ 10:23 by Olivia Mi) H/O arthroscopy of right knee History of cholecystectomy History of nephrectomy H/O tubal ligation Social History Smoking Status: Never smoker alcohol intake: never Vital Signs Vital Signs Vital Signs: 01/31/25 06:48 01/31/25 06:48 Temperature 97.3 F L Temperature Source Temporal Pulse Rate 68 Respiratory Rate 12 Respiratory Pattern Normal Blood Pressure 121/71 H Blood Pressure Mean 87 Blood Pressure Source Monitor Blood Pressure Position Semi-Fowlers Blood Pressure Location Left Arm Pulse Ox 98 Oxygen Delivery Method Room Air Weight Weight: 132 lb 4.438 oz Body Mass Index (BMI) 25.8
[2025-01-31] MEDS: Midazolam 2 MG/2 ML Syringe IV (07:45)
--- NOTE | 2025-01-31 08:11 | PRE.ANES_ITS ---
ASA Classification* ASA Classification ASA Classification: 2 Assessment & Plan Anesthesia* Anesthesia Assessment Anesthesia Assessment: Discussed sedation and/or anesthesia options, risks, benefits, and alternatives with patient/parents/legal guardian/POA. Questions invited. The patient/parents/legal guardian/POA seems to understand and agrees to proceed with anesthesia plan. Reviewed the physical assessment, medical history, allergy history and patient home medications list prior to surgery/procedure/anesthetic and documented any changes. Performed airway and anesthesia risk assessments. Anesthesia Type Anesthesia Type: General and Block Anesthesia Focused Assessment* Temperature: 97.3 F Pulse Rate: 68 Blood Pressure: 121/71 Respiratory Rate: 12 Pulse Ox: 98 Airway Assessment Mouth opens: >3 cm Mallampati Score: II Labs Anesthesia Preop lab: CBC CHEMISTRY Potassium 3.5 mmol/L (3.5-5.1) 06/03/16 15:37 06/03/16 Sodium 139 mmol/L (136-145) 06/03/16 15:37 06/03/16 BUN 11 mg/dL (7-18) 06/03/16 15:37 06/03/16 Creatinine 1.04 mg/dL (0.55-1.02) H 06/03/16 15:37 Glucose 83 mg/dL (70-110) 06/03/16 15:37 06/03/16 TSH 6.42 uIU/mL (0.358-3.74) H 06/03/16 15:37 12/01/10 COAG PT 12.8 SECONDS (11.7-14.9) 01/21/22 11:00 Pre-Assessment Diagnosis/Proposed Procedure Planned Operative Procedure(s): (L) Left shoulder Arthroscopy, subacromial decompression, biceps tenodesis Anesthesia History 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 When Was Last Pacemaker Check QUESTION #4 FULL TEXT: You/Your Family Experience fever (hyperthermia) with Anesthesia Last Oral Intake Last Oral intake: Last Oral Intake NPO since 20:30 01/31/25 06:48 Meds taken in AM with sips of No 01/31/25 06:48 water? 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 Female Yes 01/17/25 10:23 HX of Motion Sickness No 01/17/25 10:23 HX of N/V After Surgery No 01/17/25 10:23 Non-Smoker Yes 01/17/25 10:23 Duration of Surgery greater Yes 01/17/25 10:23 than 60 minutes Number of Risk Factors 3 01/17/25 10:23 PONV Score Moderate Risk 01/17/25 10:23 Height & Weight Height & Weight: Anesthesia: Height & Weight Height 5 ft 01/31/25 06:48 Weight: 60 kg 01/31/25 06:48 Body Mass Index (BMI) 25.8 01/31/25 06:48 Respiratory Assessment Respiratory Assessment - printing and stamping supervisor: Respiratory Tract Infection Hx - printing and stamping supervisor Hx Respiratory Tract Infection No 01/17/25 10:23 STOP Sleep Apnea STOP Sleep Apnea - printing and stamping supervisor: STOP Sleep Apnea - printing and stamping supervisor Hx Hypertension No 01/17/25 10:23 Hx Sleep Apnea No 01/17/25 10:23 CPAP BIPAP Do you snore loudly (louder No 01/17/25 10:23 than talking or can be heard Do you often feel tired/ No 01/17/25 10:23 fatigued/ sleepy during daytime? Has anyone observed you stop No 01/17/25 10:23 breathing during sleep? STOP Results Negative 01/17/25 10:23 QUESTION #5 FULL TEXT : Do you snore loudly (louder than talking or can be heard through closed doors)? 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 Specify any problems Hx of Preganancy in last 3 No 01/17/25 10:23 Months Nurse Filling Out Transfusion VCHRISTIN 01/17/25 10:23 & Questions: Date: 01/17/25 01/17/25 10:23 Time: 10:24 01/17/25 10:23 Patient unable to answer at this time (ie. confused, unrespo /Reproduction History /Reproductive History - printing and stamping supervisor: /Reproductive Hx- printing and stamping supervisor Hx Now No 01/17/25 10:23 Gestational Age (in weeks): EDC: Hx Hx Para Hx Section SAB No 01/17/25 10:23 Active Medications Active Medications: Current Medications Generic Name Dose Route Start Last Admin Trade Name Freq PRN Reason Stop Dose Admin Lactated Ringer's 1,000 mls @ 15 mls/hr 01/31/25 06:30 01/31/25 07:05 IV 15 mls/hr .Q48H ABELINO Administration PFSH Medical History Wears dentures Wears contact lenses Wears glasses History of steroid therapy Thyroid disease Rheumatoid arthritis Arthritis Back pain Gastric reflux Hoarseness Cardiology follow-up encounter Superior labrum zmzagtux-rn-ngybfnsuy (SLAP) tear of left shoulder Tendinitis of left rotator cuff Left shoulder pain Left wrist pain Left lateral epicondylitis Tendinitis of extensor tendon of left hand Right carpal tunnel syndrome Right hand pain Aortic valve insufficiency Home Medications ?Medication ?Instructions ?Recorded ?Last Taken ?Type levothyroxine 50 mcg capsule 50 mcg PO DAILY 02/07/21 01/30/25 History folic acid 1 mg tablet 1 mg PO BID 11/19/22 5 History methotrexate sodium 2.5 mg tablet 20 mg PO QWEEK 11/19 Unknown History famotidine 40 mg tablet 40 mg PO QHS 10/05/24 History lansoprazole 30 mg capsule,delayed 30 mg PO DAILY 09/2601/30/25 History release acetaminophen 325 mg tablet 325 mg PO ONCE PRN pain 01/30/25 History (Tylenol) hydroxychloroquine 200 mg tablet 300 mg PO DAILY 01/1701/30/25 History prednisone 10 mg tablet 10 mg PO DAILY PRN FLARE UPS 01/17/25 Unknown History tramadol 50 mg tablet 50 mg PO BID PRN PRN pain 01/28/25 History Allergy/AdvReac Type Severity Reaction Status Date / Time Latex, Natural Rubber AdvReac Intermediate rash/itchy Verified 01/31/25 06:46 Family History Brother Heart disease Mother Cancer Arthritis Father Hypertension Surgical History H/O arthroscopy of right knee History of cholecystectomy History of nephrectomy H/O tubal ligation Social History Smoking Status: Never smoker alcohol intake: never Review of Systems (Anesthesia) ROS Narrative System reviewed and no additional complaints, except as documented.
[2025-01-31] MEDS: Cefazolin 1 GM/5 ML Vial 2 GM IV (08:32)
[2025-01-31] MEDS: Lactated Ringers 1,000 ML 1000 ML IV (08:32)
[2025-01-31] MEDS: fentaNYL 100 MCG/2 ML Ampul 50 MCG IV (08:38)
[2025-01-31] MEDS: Epinephrine (1 mg/ml) 1 MG/ML VIAL (09:00)
--- NOTE | 2025-01-31 09:44 | PCM.OPRPT ---
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 Burn Nurse: bart Tasks completed by first coat sander: Retracting Additional environmental engineering assistant?: No Type of Anesthesia: Block,Regional and General RN Documented Start/Stop Times: Operation Date: 01/31/25 08:30 Case Time Into Pre-Op 01/31/25 06:20 Anesthesia Start 01/31/25 08:32 Into Room 01/31/25 08:32 Procedure Start 01/31/25 09:00 Procedure End 01/31/25 09:44 Procedure Start Time: 09:00 Procedure Stop Time: 09:44 Select all DRAINS/GRAFTS/IMPLANTS that apply: Implanted device Implanted device details: Arthrex biceps tension tight button Estimated Blood Loss: 20 Specimen collected: No Description of surgery: Patient brought to the operating room theater. Placed supine on the table. General anesthesia induced. 2 g of IV Ancef administered prior to the start of the procedure. Patient transferred left side up lateral decubitus beanbag positioner. Axillary roll used. All bony prominences padded. SCDs on the legs. Upper extremity prepped and draped in the usual sterile fashion with chlorhexidine-based prep solution allowing over 3 minutes drying time prior to draping. 10 pounds of inline traction was used with the arm in 40 degrees of abduction. Preoperative timeout performed to confirm the site patient and the surgery. Began by inserting the arthroscope through a standard posterior arthroscopy portal. Made an accessory anterior portal through the rotator interval through inside-out spinal needle localization. No loose bodies cartilage on the glenoid and humeral head appeared normal. There is slight undersurface fraying of the rotator cuff but no partial-thickness or full-thickness tears. There is a type II SLAP tear. I performed intra-articular biceps tenotomy to plan for later tenodesis. The subscapularis appeared normal as did the rest of the rotator cuff. Axillary recess entered no loose bodies bare area looks normal. I withdrew the arthroscope and inserted the arthroscope into the subacromial space. I made an accessory lateral portal. I cleared away a moderate to high amount of inflammatory bursitis all the way anteriorly posteriorly and laterally to the gutters. I probed the superior aspect of the rotator cuff tendon this was normal and intact. I did a subacromial decompression for 3 mm down to flat margins for slight downsloping of the anterolateral acromion. Arthroscopy pictures taken and saved onto the system throughout the case. Arthroscope withdrawn. I then turned my attention to performing the biceps tenodesis. I made a small 1 inch incision centered over the proximal anteromedial aspect of the humerus overlying the long head of the biceps tendon. He carried the dissection down through skin and subcutaneous tissue achieved meticulous hemostasis. I incised the fascia in line with skin incision. Identified the long head of the biceps tendon and delivered this through the skin incision. I shorten up the biceps. I then used the Arthrex biceps tension tight locking button loop suture included suture. I wrapped this around in a luggage tag fashion and then passed this twice through the biceps tendon with the exiting suture from the deep side of the tendon. I clipped it this out of the way. I then identified the mid aspect of the proximal humerus at the subpectoral region. I drilled a unicortical hole. Irrigated away any bone dust. I attempted to pass the biceps button but the canal was a little bit too tight. I then drilled a bicortical hole and was able to flip the biceps tension tight button inside the cortex. I then pulled on the free end of the suture to shorten up the suture and bring the biceps long head tendon onto the humeral shaft for an onlay repair technique. This was solid and well fixated on the suture limb cut short. All incisions were thoroughly irrigated meticulous hemostasis achieved. Subcutaneous tissue closed with 2-0 Vicryl suture and skin with 3-0 Monocryl. Skin cleaned with wet and dry dressing followed application of Steri-Strips Adaptic 4 x 4 gauze ABD dressing cloth tape with an abduction pillow sling for the upper extremity. Patient woken up from general anesthetic transferred off the operating table taken to postanesthetic care unit in stable condition. All sponge needle and instrument counts were correct no complications plan for the patient discharged home according to day surgery criteria follow-up in the office within 2 weeks time. CPT 18968, 51090 Surgical Findings: As above Complications Complications: No Admit VTE Documentation VTE Present on Admission: No VTE Mechan Device Prophylaxis: SCD's VTE Pharm Prophylaxis ordered?: No
--- NOTE | 2025-01-31 09:52 | EX.PCM.DISCH ---
Discharge Instructions Diet Discharge Diet: No restrictions Activity Ice area for (Minutes): 10 Weight Bearing Status: No weight bearing Lifting Restrictions: no lifting over 1 pound Additional Activity Instructions:: ok to remove sling at rest, pendulums and wrist/hand rom 4x/day Dressing / Incision Call your doctor if your incision/area has: Continuous Slow Oozing, Sudden Increased Bleeding, Increased Pain/ Swelling, Increased Redness, Foul Smelling Discharge and Swelling at the incision site Call your doctor if you observe: Fever of 101 or Higher and Coldness, Increased Pain Cleanse incision/area with: Do not get Incision Wet Follow Up Care Please Follow Up With: Raghav Ngo MD When: within 2 weeks Test Results: Test results from this visit will be discussed in further detail at your follow-up appointment, if applicable. Discharge Plan Admission Attending Provider: Raghav Ngo Primary Care Provider: Debra Zamudio NP Instructions Print Language: Norwegian Discharge Orders/Prescriptions Prescriptions: New oxycodone-acetaminophen [Endocet] 5-325 mg tablet 1 tab PO Q4H MDD 6 PRN (Reason: pain) 5 Days Qty: 30 0RF No Action levothyroxine 50 mcg capsule 50 mcg PO DAILY methotrexate sodium 2.5 mg tablet 20 mg PO QWEEK Patient Comments: TAKE 8 TABLETS BY MOUTH ONCE A WEEK Rx Instructions: LAST DOSE 01/18/25 folic acid 1 mg tablet 1 mg PO BID Patient Comments: TAKE 2 TABLETS BY MOUTH ONCE DAILY lansoprazole 30 mg capsule,delayed release(DR/EC) 30 mg PO DAILY famotidine 40 mg tablet 40 mg PO QHS acetaminophen [Tylenol] 325 mg tablet 325 mg PO ONCE PRN (Reason: pain) hydroxychloroquine 200 mg tablet 300 mg PO DAILY prednisone 10 mg tablet 10 mg PO DAILY PRN (Reason: FLARE UPS) tramadol 50 mg tablet 50 mg PO BID PRN PRN (Reason: pain) Referrals / Follow Up: Raghav Ngo MD [Med Staff - Active Staff] - Debra Zamudio NP, [employer]UBB[employer]NER-C [Primary Care Provider] - Disposition Disposition (needs filled in before D/C Order can be placed): Home, Self Care
--- NOTE | 2025-01-31 10:41 | PCM.POST.ANE ---
Anesthesia: Postop Eval I Current Vital Signs Temperature: 97.8 F Pulse Rate: 78 Blood Pressure: 124/69 Respiratory Rate: 16 Pulse Ox: 98 Oxygen Delivery Method: Room Air Assessment Airway patent: Yes Spontaneous unlabored respirations: Yes Mental status: Awake and Calm nausea: No Vomiting: No Anesthesia Complication: No Fluid Hydration Crystalloid volume administer (ml): 1,000 Total IV fluid infused: 1,000 Progress Note Anesthesia document: Postop Eval 1 completed: Yes
--- NOTE | 2025-01-31 14:47 | POSTOPAN2_ITS ---
Anesthesia Postop Eval I Sum Postop Eval Completion status Anesthesia document: Postop Eval 1 completed: Yes Anesthesia Postop Eval I Summary Anesthesia Postop Eval I Summary: Anesthesia Postop Eval I: Assessment Summary Airway patent Yes 01/31/25 10:42 BOWLING [email or web address] [email or web address] Spontaneous unlabored Yes 01/31/25 10:42 BOWLING [email or web address] [email or web address] respirations Mental status Awake,Calm 01/31/25 10:42 BOWLING [email or web address] [email or web address] nausea No 01/31/25 10:42 BOWLING ALLEY [email or web address] Vomiting No 01/31/25 10:42 BOWLING [email or web address] [email or web address] Anesthesia Postop Eval I: Fluid Summary Crystalloid volume administer 1,000 01/31/25 10:42 BOWLING [email or web address] [email or web address] (ml) Colloids volume administered ( ml) Blood Product volume administered (ml) Total IV fluid infused 1,000 01/31/25 10:42 BOWLING [email or web address] [email or web address] Anesthesia Postop Eval I: Summary Notes Anesthesia Complication No 01/31/25 10:42 BOWLING [email or web address] [email or web address] Anesthesia Complication Comment: Post-operative progress note Anesthesia: Postop Eval II Evaluation Mental status: Awake Pain Level: 0 nausea: No Vomiting: No
--- NOTE | 2025-01-31 14:47 | PCM.POSTANE2 ---
Anesthesia Postop Eval I Sum Postop Eval Completion status Anesthesia document: Postop Eval 1 completed: Yes Anesthesia Postop Eval I Summary Anesthesia Postop Eval I Summary: Anesthesia Postop Eval I: Assessment Summary Airway patent Yes 01/31/25 10:42 [email or web address] [email or web address] Spontaneous unlabored Yes 01/31/25 10:42 PATHOLOGY [email or web address].[email or web address] respirations Mental status Awake,Calm 01/31/25 10:42 PATHOLOGY [email or web address].[email or web address] nausea No 01/31/25 10:42 PATHOLOGY [email or web address].[email or web address] Vomiting No 01/31/25 10:42 PATHOLOGY [email or web address] Anesthesia Postop Eval I: Fluid Summary Crystalloid volume administer 1,000 01/31/25 10:42 PATHOLOGY [email or web address] (ml) Colloids volume administered ( ml) Blood Product volume administered (ml) Total IV fluid infused 1,000 01/31/25 10:42 PATHOLOGY [email or web address] Anesthesia Postop Eval I: Summary Notes Anesthesia Complication No 01/31/25 10:42 PATHOLOGY [email or web address] Anesthesia Complication Comment: Post-operative progress note Anesthesia: Postop Eval II Evaluation Mental status: Awake Pain Level: 0 nausea: No Vomiting: No
== END 2025-01-31 11:59 | disposition home or self-care (01) ==
LOC: SDC 06:03 → AC 06:04
PROVIDERS: PCP Nurse Practitioner Family; Referring Provider Orthopaedic Surgery Sports Medicine; Visit Provider Orthopaedic Surgery Sports Medicine
PROC: (CPT 29805; principal; 2025-01-31 08:10)
DX: S43.432A Superior glenoid labrum lesion of left shoulder, initial encounter (principal); K21.9 Gastro-esophageal reflux disease without esophagitis; M75.42 Impingement syndrome of left shoulder; M77.9 Enthesopathy, unspecified; Z90.49 Acquired absence of other specified parts of digestive tract; Z98.51 Tubal ligation status; Z90.5 Acquired absence of kidney; M75.82 Other shoulder lesions, left shoulder
CPT/HCPCS: 29826; 01630; 29807; C1713; J2405

== ENCOUNTER → 2025-02-08 | Outpatient (CLI) | payer BC, SELFPAY ==
--- NOTE | 2025-02-08 07:55 | US_ITS ---
PROCEDURE: LIVER 02/08/2025 REASON FOR EXAM: ELEVATED LIVER ENZYMES COMPARISON: None FINDINGS: Liver: Diffusely echogenic suggesting fatty infiltration. Liver is not enlarged. Gallbladder: Surgically absent. Common bile duct: Dilated measuring up to 8.3 mm . Pancreas: Normal Other: Visualized portions of the right kidney are unremarkable. No right upper quadrant ascites. US/Liver IMPRESSION: Fatty infiltration of the liver. Status post cholecystectomy. Reading Location: [place] [id number]
== END | disposition home or self-care (01) ==
LOC: US 07:46 → OPUS 07:49
PROVIDERS: PCP Nurse Practitioner Family; Referring Provider Internal Medicine Rheumatology; Visit Provider Internal Medicine Rheumatology
DX: Z52.4 Kidney donor (principal); M06.4 Inflammatory polyarthropathy; Z79.899 Other long term (current) drug therapy; R76.8 Other specified abnormal immunological findings in serum; E03.9 Hypothyroidism, unspecified; I35.1 Nonrheumatic aortic (valve) insufficiency; K11.20 Sialoadenitis, unspecified
CPT/HCPCS: 76705

== ENCOUNTER 2025-04-19 10:00 | Outpatient (RCR) | payer BC, SELFPAY ==
--- NOTE | 2025-02-12 11:27 | HP.PTEVAL ---
Patient's Visit Information Visit Information Visit Information: ANANTH CHASE is a 49 year old F referred to Physical Therapy by Dr. Raghav Ngo MD with a diagnosis of Superior glenoid labrum lesion tear of left shoulder ,pain left shoulder. Date of Evaluation: 02/12/25 Physical Therapist: Miki Prado, PT, Cert MDT, OCS Visit Plan Frequency: 2x /Week Duration: 12 weeks Plan: S/P Left shoulder arthroscopy, subacromial decompression, biceps tenodesis on 01/31/25 -No horizontal extension 4-6 weeks -No isolated bicep activation elbow flexion /supination 6 weeks -limit ER 40 degrees 4 weeks -Sling d/c PT INTERVENTIONS : MANUAL THERAPY ,CP./MHP Phase 1: Initial Protection and Pain Management (Weeks 1-2) Gentle Movement: Early passive range of motion exercises are introduced to prevent stiffness. Perform pendulum exercises 4x/day, where the patient gently swings the arm in a controlled manner. Maintaining range of motion and strength in the elbow, wrist, and hand is important to prevent stiffness and muscle atrophy. Phase 2: Gradual Sikh of Motion (Weeks 2-6) Gradually discontinue the sling starting 2 weeks after surgery. Active Assisted Range of Motion: Gradually increasing the range of motion with assistance from the unaffected arm or a physical therapist is introduced. Phase 3: Gradual Sikh of Strength (Weeks 6-12) Light Strengthening: Isometrics and gentle resistance exercises are started to strengthen the rotator cuff muscles. Progression of Exercises: Exercises progress from simple movements like scapular retraction to more complex ones like lateral elevation and external rotation. Phase 4: Functional Exercises and Return to Activity (Weeks 12+) Subjective Subjective: This 49 y/o female presents to physical therapy with s/p Left shoulder arthroscopy, subacromial decompression, biceps tenodesis on 01/31/25. Patient was d/c to DOS with sling. Patient seen DR Cristina recommended to start PT with ROM adn D/C sling. Patient pain medication oxycodone. Patient to RTD in 4 weeks . Patient initial in [employer] fell at work September 28 . Patient had MRI showed There is a tear of the labrum from the 10 o'clock 2 o'clock position including the biceps tendon anchor. There is a paralabral cyst in the 12 o'clock position measuring 0.5 by 0.25 cm. There is a paralabral cyst at the anterior labral margin measuring 1.0 by 0.6 cm. Patient denies paresthesia/tingling. Patient sleeping good. Patent condition affects QOL and function. Unable to move arm for ADLS . Patient goals to have full function of arm. SOCIAL: VOCATION: not workining at [employer] Pain Left Shoulder: Pain Intensity (Out of 10): 2 Pain Intensity Range: 7, 8 and 10 Objective Objective: POSTURE: mild forward posture NEURO: denies paresthesia/tingling SKIN:incision well approximate PROM: shoulder flexion 150 degrees , abduction 150 , ER 45 degrees AROM: elbow flexion 0-130 degrees ,wrist WFL MMT: ( peak force) 0 Balance/Special Test Scores Quick DASH Score: 61.3625 Goals Goal 1:: Patient to be I with HEP for shoulder surgery Goal Time Frame: 8-12 Weeks Goal 2:: Patient to improve shoulder oswestry score by 5 points to improve QOL and function Goal Time Frame: 8-12 Weeks Goal 3:: Patient to improve AROM shoulder flexion/abduction 160 degrees and ER 90 degrees for ADL and housework tasks Goal Time Frame: 8-12 Weeks Goal 4:: Patient to improve peak force RTC/deltoid by 10-15# to improve function and OH activities Goal Time Frame: 8-12 Weeks Goal 5:: Patient to demonstrate 70% improvement with function and ADL'S Goal Time Frame: 8-12 Weeks Rehabilitation Potential Physical Therapy Diagnosis: This patient underwent s/p Left shoulder arthroscopy, subacromial decompression, biceps tenodesis on 01/31/25. Patient current impairments with ROM ,pain ,weakness ,impairs ADLS and housework tasks and RTW thus benefit from skilled PT Rehabilitation Potential: Good Anticipated Interventions Patient/Client Instruction: Educate patient on: Condition and Plan of Care For the Purpose of:: To increase ROM, To reduce risk of recurrence, To improve health and function, To facilitate caregiver knowledge, To prevent re-injury and To improve ability to perform tasks related to life management Therapeutic Exercise to Include: Strength training, Postural training, Flexibilty training, Passive ROM, Active ROM and Scapular Strength/Stabilization Comment: RTC For the Purpose of:: To decrease pain, To increase ROM, To improve muscle performance and motor function, To improve ability to perform ADL's, To increase tolerance to activity/condition/position, To improve ability of physical actions for home/community/work/leisure, To improve health of tissue, To decrease soft tissue restriction, To increase flexibility/ROM and To improve tolerance to ADL's Manual Therapy Techniques to Include: Mobilization and Passive ROM Comment: SHOULDER G-H For the Purpose of:: To increase ROM, To improve health of tissue and To decrease soft tissue restriction Text: Thank you for the opportunity to evaluate your patient. For Medicare and Medicare HMO plans, please review the plan of care and approve it. It will need to be FAXED BACK to us at [phone] for Medicare purposes. For Medicare only, by signing this I certify the plan of care. Please let me know if there are questions or concerns regarding this plan of care. Physician Signature: Date:
--- NOTE | 2025-04-19 10:25 | HP.PTDCSUM ---
Discharge Summary D/C summary: It has been my pleasure to treat ANANTH CHASE referred by Dr. 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 Discharge Date: 04/19/25 Please see the following information for a summary of their discharge status. Subjective Subjective: Doing well Ready for d/c NO pain RTW Pain Left Shoulder: Pain Intensity (Out of 10): 0 Overall Improvement % Improvement: 90 Objective Objective/Function: AROM: shoulder flexion 170 degrees ,abduction 170 degrees ,ER 90 degrees ,IR T7 MMT: ( peak force) infraspinatus 14.8 ,subscapularis 16.2 ,supraspinatus 15.1 ,deltoid 15.2 Goals Goal 1:: Patient to be I with [facility] for shoulder surgery Goal Progress: Goal Met Goal 2:: Patient to improve shoulder oswestry score by 5 points to improve QOL and function(NEW GOAL) Goal Progress: Goal Met Goal 3:: Patient to improve AROM shoulder flexion/abduction 160 degrees and ER 90 degrees for ADL and housework tasks Goal Progress: Goal Met Goal 4:: Patient to improve peak force RTC/deltoid by 10-15# to improve function and OH activities (NEW GOAL) Goal Progress: Goal Met Goal 5:: Patient to demonstrate 70% improvement with function and ADL'S Goal Progress: Goal Met Plan Plan: D/C TO HEP D/C Information Discharge Comments: D/C TO HEP d/c sentence: If there are questions or concerns regarding this patient's physical therapy, please feel free to call me at [phone]. Thank you for the referral of this patient. Sincerely, Miki Prado, PT, Cert MDT, OCS Balance/Gait/Functional tests Balance/Special Test Scores Quick DASH Score: 2.2725 Improvement % Improvement: 90
== END 2025-04-19 13:17 | disposition home or self-care (01) ==
LOC: PT 10:00
PROVIDERS: PCP Nurse Practitioner Family; Referring Provider Orthopaedic Surgery Sports Medicine; Visit Provider Orthopaedic Surgery Sports Medicine
DX: S43.432D Superior glenoid labrum lesion of left shoulder, subsequent encounter (principal); M75.82 Other shoulder lesions, left shoulder; M25.512 Pain in left shoulder
CPT/HCPCS: 97110; 97140; 97162; 97530